=== PATIENT | female | born 1950 | race Caucasian/White ===

== ENCOUNTER → 2017-10-15 | Outpatient (CLI) | payer OTHER ==
[~2017-10-15] MED LIST: ALL60 PO; AZIT250T PO; CALCTAB7 PO; CLOP1TAB54 PO; CMBIN INH; LEVO1TAB33 PO; METO-217 PO; METO25TA3 PO; VERA240T20 PO
[2017-10-15 09:52] LABS: ALT/SGPT 23 U/L (12-78); AST/SGOT 16 U/L (15-37); BLOOD UREA NITROGEN 17 mg/dl (7-18); CALCIUM 9.1 mg/dl (8.5-10.1); CARBON DIOXIDE 29 mmol/L (21-32); CHLORIDE 103 mmol/L (98-107); CREATININE 1.04 mg/dl (0.60-1.20); GLUCOSE 96 mg/dl (70-99); MAGNESIUM 2.6 mg/dl (1.8-2.4); POTASSIUM 4.5 mmol/L (3.5-5.1); SODIUM 139 mmol/L (136-145)
[2017-10-15 09:55] LABS: CHOLESTEROL 154 mg/dl (0-200); CHOLESTEROL/HDL RATIO 2.2; HDL CHOLESTEROL 71 mg/dl; LDL CHOLESTEROL CALCULATED 57 mg/dl; TRIGLYCERIDES 130 mg/dl (0-150); VERY LOW DENSITY LIPOPROT CALC 26 mg/dl
== END | disposition home or self-care (01) ==
LOC: C.LAB 07:29
PROVIDERS: ATTEND Internal Medicine Cardiovascular Disease
DX: I10 Essential (primary) hypertension (principal); E87.6 Hypokalemia; E78.00 Pure hypercholesterolemia, unspecified

== ENCOUNTER 2022-06-01 19:04 | Inpatient (IN) ==
[2022-06-01] MEDS ORDERED: dilTIAZem HCl 5 MG/ML 5 ML VIAL IV STA (19:31)
[2022-06-01] MEDS ORDERED: SODIUM CHLORIDE 0.9% 1000ML 250 ML IV ONE (19:31)
--- NOTE | 2022-06-01 19:40 | Emergency Department Note ---
History of Present Illness General Chief complaint: Leg Weakness, Bilateral Stated complaint: weakness Time Seen by Provider: 06/01/22 19:24 Source: patient History of Present Illness Provider complaint: Leg weakness Onset (ago): week(s) 1 Location: lower extremity, left and right Pain Consistency: + intermittent Maximum Pain Intensity: 0 Quality: + other (Weakness) Relieved By: + rest Exacerbated By: + other (Walking) Associated symptoms: no chest pain, no cough, no fever/chills, no headaches, no nausea/vomiting or no shortness of breath This is a 71-year-old female who presents with bilateral leg weakness over the past week intermittently. She states that when she walks down to her mailbox on the way back when she is walking on the driveway her legs start to feel stiff leg boards and weak. She describes it as weak as if her legs had the flu similar to when she had hypothyroidism. She states that it is not a "draining weakness" like when she had low potassium. It is better with rest. She has no associated pain or swelling to her legs. She denies having any flu symptoms, fever or cough. She denies any chest discomfort or pain or shortness of breath. She does not feel lightheaded or feel any palpitations. She denies abdominal pain, vomiting, diarrhea, black or bloody stools or urinary symptoms. She does state that she has a prior history of atrial fibrillation many years ago. She is not on blood thinners. Home Medications Medication Instructions Recorded Confirmed Type aspirin 81 mg tablet,delayed 81 mg PO DAILY 07/21/19 06/01/22 History release (Adult Low Dose Aspirin) fexofenadine 180 mg tablet 180 mg PO DAILY 07/21/19 06/01/22 History (Ghada Allergy) levothyroxine 75 mcg capsule 75 mcg PO DAILY 07/21/19 06/01/22 History magnesium 250 mg tablet 250 mg PO BID tab 07/21/19 06/01/22 History metoprolol succinate 25 mg 12.5 mg PO DAILY #45 tab 07/21/19 06/01/22 Rx tablet,extended release 24 hr atorvastatin 20 mg tablet 20 mg PO QPM #90 tab 09/02/19 06/01/22 Rx potassium chloride 20 mEq 20 meq PO DAILY #90 tab 10/20/19 06/01/22 Rx tablet,extended release(part/cryst) (Klor-Con M) metoprolol succinate 50 mg 50 mg PO DAILY #90 tab 01/25/20 06/01/22 Rx tablet,extended release 24 hr verapamil 240 mg tablet,extended 120 mg PO QAM #45 tab 01/25/20 06/01/22 Rx release Allergies Allergy/AdvReac Type Severity Reaction Status Date / Time aspirin Allergy Unknown CHEST Verified 06/01/22 20:29 TIGHTNESS, RINGING IN EARS Past Med/Surg History Medical History Atrial fibrillation (03/10/12) Benign essential hypertension (03/10/12) Stas's thyroiditis Hypercholesterolemia Hypertension Social History Smoking Status: Never smoker Preferred Language: Hebrew Feels Safe at Home: Yes Review of Systems See HPI for pertinent positives & negatives. and A total of 10 systems reviewed and were otherwise negative Physical Exam Vital Signs Vital Signs - 24 hr 06/01/22 19:14 06/01/22 20:00 06/01/22 21:00 Temperature 36.8 C Temperature Source Oral Pulse Rate 133 H 86 91 H Pulse Rate from SpO2 Sensor 97 H Respiratory Rate 20 26 H 33 H Respiratory Effort / Characteristics Non-Labored Spontaneous Respiratory Depth Normal Blood Pressure 144/103 H 125/73 126/93 Blood Pressure Mean 116 90 104 Blood Pressure Position Lying Pulse Oximetry 93 93 94 Oxygen Delivery Method Room Air Room Air Room Air Sepsis Recent Fever Within 48 Hours No Sepsis New/Unexplained Change in Mental Status No Sepsis Action Taken by Nursing No Action Required 06/01/22 21:30 Temperature Temperature Source Pulse Rate 134 H Pulse Rate from SpO2 Sensor 146 H Respiratory Rate 34 H Respiratory Effort / Characteristics Respiratory Depth Blood Pressure 149/117 H Blood Pressure Mean 127 Blood Pressure Position Pulse Oximetry 95 Oxygen Delivery Method Sepsis Recent Fever Within 48 Hours Sepsis New/Unexplained Change in Mental Status Sepsis Action Taken by Nursing Constitutional: Vital signs reviewed. Eyes: Pupils are equal round reactive to light. Conjunctiva are noninjected. ENT: Pharynx is clear without erythema or exudate. Mucous membranes are moist. Neck supple without meningeal signs. Respiratory: Clear to auscultation bilaterally. Breath sounds are equal bilaterally. Cardiovascular: Irregularly irregular rhythm. Tachycardic. Heart rate 140. GI: Soft, nondistended and nontender. Bowel sounds are present. Musculoskeletal: No peripheral edema. No lower extremity tenderness. Normal pu lses in the feet. Integumentary: No cyanosis. or jaundice. Neurological: The patient is awake and alert. No focal deficits. Psychiatric: Normal affect. Not anxious appearing. Course Administered Medications Discontinued Medications Diltiazem HCl (Diltiazem Hcl 5 Mg/Ml 5 Ml Vial) 10 mg IV NOW STA Stop: 06/01/22 19:32 Last Admin: 06/01/22 19:55 Dose: 10 mg Documented by: [id number] Cosigned by: [id number] Sodium Chloride (Nss 1000ml) 250 mls @ 999 mls/hr IV .Q16M ONE Stop: 06/01/22 19:46 Last Infusion: 06/01/22 20:13 Dose: 0 mls/hr Documented by: [id number] Admin: 06/01/22 19:57 Dose: 999 mls/hr Documented by: [id number] Medical Decision Making Differential Diagnosis Dysrhythmia, SVT, atrial fibrillation with RVR, metabolic derangement, anemia Medical Records Attestation: I reviewed the patient's medical records. I did perform a limited focused review of portions of the patient's old chart on the electronic medical record. The patient has had no recent pertinent visits to this hospital. Home Medications Current Medication List: was personally reviewed by me Laboratory Data Attestation: I reviewed the patient's lab results. Result diagrams: 06/01/22 19:22 06/01/22 19:22 Lab Results 06/01/22 06/01/22 06/01/22 Range/Units 19:22 19:22 19:22 WBC 11.26 H (4.8-10.8) K/ul RBC 4.63 (3.93-5.22) M/uL Hgb 13.4 (12.0-16.0) g/dl Hct 41.5 (34.1-44.9) % MCV 89.6 (80.0-100.0) fL MCH 28.9 (25.0-34.0) pg MCHC 32.3 (32.0-36.0) g/dL RDW Std Deviation 47.5 H (36.4-46.3) fL RDW Coeff of Елена 14.6 H (11.5-14.5) % Plt Count 275 (130-400) K/uL MPV 10.5 (9.4-12.3) fL Immature Gran % (Auto) 0.5 % Neut % (Auto) 73.9 % Lymph % (Auto) 16.3 % [place] % (Auto) 8.8 % Eos % (Auto) 0.1 % Baso % (Auto) 0.4 % Neut # (Auto) 8.32 H (1.4-6.5) K/uL Lymph # (Auto) 1.83 (1.2-3.4) K/uL [place] # (Auto) 0.99 H (0.24-0.82) K/uL Eos # (Auto) 0.01 (0-0.50) K/uL Baso # (Auto) 0.05 (0-0.2) K/uL Immature Gran # (Auto) 0.06 H (0.00-0.02) K/uL Sodium 141 (136-145) mmol/L Potassium 3.9 (3.5-5.1) mmol/L Chloride 109 H (98-107) mmol/L Carbon Dioxide 20 L (21-32) mmol/L Anion Gap 12 H (3-11) BUN 19 (6-23) mg/dl Creatinine 0.92 (0.6-1.2) mg/dl Est Cr Clr Drug Dosing 57.8 ml/min Est GFR ( Amer) 72.1 ml/min Est GFR (Non-Af Amer) 62.2 ml/min BUN/Creatinine Ratio 20.7 H (10-20) Glucose 138 H (70-99(Fasting)) mg/dl Calcium 8.5 (8.5-10.1) mg/dl Magnesium 2.2 (1.7-2.4) mg/dl Total Bilirubin 1.1 H (0.2-1.0) mg/dl AST 18 (13-39) U/L ALT 25 (7-52) U/L Alkaline Phosphatase 72 (34-104) U/L Troponin I High Sens 88.3 H* (0-14) pg/ml Total Protein 6.6 (6.0-8.3) gm/dl Albumin 4.0 (3.4-5.0) gm/dl Globulin 2.6 (2.5-4.0) gm/dl Albumin/Globulin Ratio 1.5 (0.9-2) TSH 9.749 H (0.300-4.500) uIu/ml Free T4 0.84 (0.61-1.60) ng/dl SARS-CoV-2, RNA, NAAT (NEGATIVE) 06/01/22 Range/Units 20:37 WBC (4.8-10.8) K/ul RBC (3.93-5.22) M/uL Hgb (12.0-16.0) g/dl Hct (34.1-44.9) % MCV (80.0-100.0) fL MCH (25.0-34.0) pg MCHC (32.0-36.0) g/dL RDW Std Deviation (36.4-46.3) fL RDW Coeff of Елена (11.5-14.5) % Plt Count (130-400) K/uL MPV (9.4-12.3) fL Immature Gran % (Auto) % Neut % (Auto) % Lymph % (Auto) % [place] % (Auto) % Eos % (Auto) % Baso % (Auto) % Neut # (Auto) (1.4-6.5) K/uL Lymph # (Auto) (1.2-3.4) K/uL [place] # (Auto) (0.24-0.82) K/uL Eos # (Auto) (0-0.50) K/uL Baso # (Auto) (0-0.2) K/uL Immature Gran # (Auto) (0.00-0.02) K/uL Sodium (136-145) mmol/L Potassium (3.5-5.1) mmol/L Chloride (98-107) mmol/L Carbon Dioxide (21-32) mmol/L Anion Gap (3-11) BUN (6-23) mg/dl Creatinine (0.6-1.2) mg/dl Est Cr Clr Drug Dosing ml/min Est GFR ( Amer) ml/min Est GFR (Non-Af Amer) ml/min BUN/Creatinine Ratio (10-20) Glucose (70-99(Fasting)) mg/dl Calcium (8.5-10.1) mg/dl Magnesium (1.7-2.4) mg/dl Total Bilirubin (0.2-1.0) mg/dl AST (13-39) U/L ALT (7-52) U/L Alkaline Phosphatase (34-104) U/L Troponin I High Sens (0-14) pg/ml Total Protein (6.0-8.3) gm/dl Albumin (3.4-5.0) gm/dl Globulin (2.5-4.0) gm/dl Albumin/Globulin Ratio (0.9-2) TSH (0.300-4.500) uIu/ml Free T4 (0.61-1.60) ng/dl SARS-CoV-2, RNA, NAAT NEGATIVE (NEGATIVE) Imaging Data Radiologist's Impression: Chest X-Ray 06/01/22 19:31 XR chest 1V portable HISTORY: Weakness. Evaluate for pneumonia. COMPARISON: Chest 03/24/2012. FINDINGS: No pneumothorax. Small bilateral pleural effusions, unchanged. The lungs remain hyperexpanded with apical predominant emphysematous changes. The heart is borderline enlarged. This is similar to the prior study. Stable patchy densities within the left lung apex which may represent chronic scarring. There are hazy bibasilar airspace opacities. IMPRESSION: 1. Hazy bibasilar airspace opacities which have progressed. This may represent a pneumonia and could be due to aspiration or a viral process. 2. Small bilateral pleural effusions, unchanged. 3. Patchy density of the left lung apex persists and favors scarring. ACT 112: Negative or not required by law. Electronically signed by: Yadiel Castillo M.D. 06/01/2022 8:01 PM ECG Data Attestation: I personally reviewed and interpreted this ECG as follows: Indication: + tachycardia Rate (beats per minute): 125 Rhythm: + atrial fibrillation ECG ST segments: + T-wave inversions and + Nonspecific ST abnormalities ECG Findings: + PVCs Comparison ECG Date: no prior available Additional Comments: Repeat twelve-lead EKG performed at 2016 per my interpretation shows atrial fibrillation with a heart rate of 100. There are T wave inversions in the anterior lateral leads. No ST elevations. No PVCs. QT is prolonged. MDM Narrative I did evaluate the patient as noted above. She is presenting with a week of weakness in the legs. She has a prior history of A. fib but has not had it for years. She is not anticoagulated. She is tachycardic. IV access was established. I did place an order for continuous cardiac monitoring. The monitor showed atrial fibrillation with a rate of 144 bpm. I did order and personally review the patient's 12-lead EKG as described above. She has A. fib with RVR with nonspecific ST-T wave changes. I did treat her with normal saline IV 250 mL as well as Cardizem 10 mg IV. Her heart rate improved significantly down to the 80s. I did repeat a another twelve-lead EKG which showed T wave inversions anterior laterally. She denies having any chest pain or shortness of breath or lightheadedness. I did order and personally reviewed the images of the patient's chest x-ray as described above. She appears to have bibasilar infiltrates concerning for possible pneumonia versus scarring. She denies having any symptoms consistent with COVID or pneumonia. She was placed in isola tion. I did order a COVID test. I did order and review the patient's blood work as noted in the electronic medical record. CBC shows a white count of 11.26 with a left shift. She is not anemic or thrombocytopenic. CMP is remarkable for chloride of 109 and a CO2 of 20. High-sensitivity troponin is elevated at 88.3. TSH is elevated at 9.75. I did reassess the patient. Her heart rate is about 100. I did recommend hospitalization for further care and evaluation. She likely will require an echocardiogram and anticoagulation as her [id number]- VASc score is 3. I did discuss the case with the hospitalist and mental health case manager. Impression & Plan Atrial fibrillation with rapid ventricular response, Elevated troponin, Abnormality of lung on CXR Discharge Plan Visit Data Chief Complaint: Leg Weakness, Bilateral Stated Complaint: weakness ED Provider: Michael Castro Discharge Problem: Atrial fibrillation with rapid ventricular response, Elevated troponin, Abnormality of lung on CXR Patient Disposition: Being Evaluated by Hospitalist Forms Stand Alone Forms: My [facility] Prescriptions Prescriptions: No Action magnesium 250 mg tablet 250 mg PO BID RF: 0 levothyroxine 75 mcg capsule 75 mcg PO DAILY RF: 0 fexofenadine [Ghada Allergy] 180 mg tablet 180 mg PO DAILY RF: 0 aspirin [Adult Low Dose Aspirin] 81 mg tablet,delayed release (DR/EC) 81 mg PO DAILY RF: 0 metoprolol succinate 25 mg tablet extended release 24 hr 12.5 mg PO DAILY Qty: 45 RF: 3 atorvastatin 20 mg tablet 20 mg PO QPM Qty: 90 RF: 1 potassium chloride [Klor-Con M20] 20 mEq tablet,ER particles/crystals 20 meq PO DAILY Qty: 90 RF: 1 metoprolol succinate 50 mg tablet extended release 24 hr 50 mg PO DAILY Qty: 90 RF: 3 verapamil 240 mg tablet extended release 120 mg PO QAM Qty: 45 RF: 3 Referrals Referrals: Ky Holm MD [Physician] -
[2022-06-01 19:47] LABS: Basophils # (auto) 0.05 K/uL (0-0.2); Basophils % (auto) 0.4 %; Eosinophils # (auto) 0.01 K/uL (0-0.50); Eosinophils % (auto) 0.1 %; Hematocrit (blood only) 41.5 % (34.1-44.9); Hemoglobin 13.4 g/dl (12.0-16.0); Immature Granulocytes # (auto) 0.06 K/uL (0.00-0.02); Immature Granulocytes % (auto) 0.5 %; Lymphocytes # (auto) 1.83 K/uL (1.2-3.4); Lymphocytes % (auto) 16.3 %; Mean Corpuscular Hemoglobin 28.9 pg (25.0-34.0); Mean Corpuscular Hgb Conc 32.3 g/dL (32.0-36.0); Mean Corpuscular Volume 89.6 fL (80.0-100.0); Mean Platelet Volume 10.5 fL (9.4-12.3); Monocytes # (auto) 0.99 K/uL (0.24-0.82); Monocytes % (auto) 8.8 %; Neutrophils # (auto) 8.32 K/uL (1.4-6.5); Neutrophils % (auto) 73.9 %; Platelet Count 275 K/uL (130-400); RDW Coefficient of Variation 14.6 % (11.5-14.5); RDW Standard Deviation 47.5 fL (36.4-46.3); Red Blood Count 4.63 M/uL (3.93-5.22); White Blood Count 11.26 K/ul (4.8-10.8)
--- NOTE | 2022-06-01 20:03 | XRay Report ---
XR chest 1V portable HISTORY: Weakness. Evaluate for pneumonia. COMPARISON: Chest 03/24/2012. FINDINGS: No pneumothorax. Small bilateral pleural effusions, unchanged. The lungs remain hyperexpand ed with apical predominant emphysematous changes. The heart is borderline enlarged. This is similar t o the prior study. Stable patchy densities within the left lung apex which may represent chronic scar ring. There are hazy bibasilar airspace opacities. IMPRESSION: 1. Hazy bibasilar airspace opacities which have progressed. This may represent a pneumonia and could be due to aspiration or a viral process. 2. Small bilateral pleural effusions, unchanged. 3. Patchy density of the left lung apex persists and favors scarring. ACT 112: Negative or not required by law. Electronically signed by: Yadiel Castillo M.D. 06/01/2022 8:01 PM
[2022-06-01 20:10] LABS: Albumin Globulin Ratio 1.5 (0.9-2); BUN Creatinine Ratio 20.7 (10-20); Bilirubin,Total 1.1 mg/dl (0.2-1.0); Calcium 8.5 mg/dl (8.5-10.1); Creatinine Clr Calc Pharmacy 57.8 ml/min; Est GFR (African American) 72.1 ml/min; Est GFR (Non-African American) 62.2 ml/min; Globulin 2.6 gm/dl (2.5-4.0); Magnesium 2.2 mg/dl (1.7-2.4); Potassium 3.9 mmol/L (3.5-5.1); Total Protein 6.6 gm/dl (6.0-8.3)
[2022-06-01 20:19] LABS: Troponin I High Sensitivity 88.3 pg/ml (0-14)
[2022-06-01 20:23] LABS: Thyroid Stimulating Hormone 9.749 uIu/ml (0.300-4.500)
[2022-06-01 20:56] LABS: T4 Free Thyroxine 0.84 ng/dl (0.61-1.60)
[2022-06-01] MEDS ORDERED: METOPROLOL TARTRATE 1 MG/ML VIAL IV STA (22:26)
[2022-06-01] MEDS ORDERED: METOPROLOL SUCC 50MG EXT REL TAB PO STA (22:26)
--- NOTE | 2022-06-01 22:40 | History & Physical Report ---
Date of Service June 01, 2022 Assessment & Plan (1) Atrial fibrillation with rapid ventricular response: Plan: Elevated troponin/atrial fibrillation with RVR/hypertension- The patient will be admitted to telemetry for serial cardiac enzymes, serial EKG's, cardiac rhythm monitoring and a 2-D echocardiogram with Dopplers. Troponin 88.3 on admission EKG with new T wave inversions in leads V3 through V6, along with new A. fib with RVR Received diltiazem 10 mg IV and normal saline 10 to 50 mg IV from the ED Patient has not been taking her metoprolol succinate for a few months Give metoprolol succinate 50 mg p.o. now and Lopressor 5 mg IV now Metoprolol succinate 50 mg p.o. every morning Continue aspirin 81 mg every morning Continue verapamil extended release high 20 mg every morning Lopressor 5 mg IV every 4 hours. Systolic blood pressure greater than 160 Heparin IV low-dose per protocol (2) Elevated troponin: Plan: See above (3) Hypertension: Plan: See above (4) Hypercholesterolemia: Plan: Atorvastatin 20 mg in evening Check a fasting lipid panel (5) Stas's thyroiditis: Plan: Stas's thyroiditis/hypothyroidism- Continue levothyroxine 75 mcg p.o. daily TSH mildly elevated at 9.749, which can be addressed by her PCP after discharge (6) Hypothyroidism (acquired): Plan: See above History of Present Illness Chief Complaint: The patient presents to the emergency department with complaint of intermittent bilateral lower extremity weakness and stiffness while attempting to walk over the past few days. Primary Care Provider: NO PCP The patient is a 71-year-old female with a past medical history including hypertension, hypercholesterolemia, Stas's thyroiditis, hypertension, hypokalemia and allergic rhinitis. She had run out of medications a few months ago, and had not taken any until about 1 week ago, when she checked her blood pressure, vitals elevated, and resumed her verapamil dosing at that time. She reports her blood pressure had improved, and she had not noticed any palpitations or increased heart rate. She was found to be in atrial fibrillation with RVR went arrival to the ED, and reports that she did have atrial fibrillation about 11 years ago. She had previously been on Xarelto as well, which had been discontinued a while ago. Allergies Allergy/AdvReac Type Severity Reaction Status Date / Time aspirin Allergy Unknown CHEST Verified 06/01/22 20:29 TIGHTNESS, RINGING IN EARS Home Medications Medication Instructions Recorded Confirmed Type aspirin 81 mg tablet,delayed 81 mg PO DAILY 07/21/19 06/01/22 History release (Adult Low Dose Aspirin) fexofenadine 180 mg tablet 180 mg PO DAILY 07/21/19 06/01/22 History (Ghada Allergy) levothyroxine 75 mcg capsule 75 mcg PO DAILY 07/21/19 06/01/22 History magnesium 250 mg tablet 250 mg PO BID tab 07/21/19 06/01/22 History metoprolol succinate 25 mg 12.5 mg PO DAILY #45 tab 07/21/19 06/01/22 Rx tablet,extended release 24 hr atorvastatin 20 mg tablet 20 mg PO QPM #90 tab 09/02/19 06/01/22 Rx potassium chloride 20 mEq 20 meq PO DAILY #90 tab 10/20/19 06/01/22 Rx tablet,extended release(part/cryst) (Klor-Con M) metoprolol succinate 50 mg 50 mg PO DAILY #90 tab 01/25/20 06/01/22 Rx tablet,extended release 24 hr verapamil 240 mg tablet,extended 120 mg PO QAM #45 tab 01/25/20 06/01/22 Rx release Past Med/Surg History Medical History (Updated 06/02/22 @ 03:18 by Hugo Nicolas MD) Atrial fibrillation (03/10/12) Benign essential hypertension (03/10/12) Stas's thyroiditis Hypercholesterolemia Hypertension Hypothyroidism (acquired) Social History Smoking Status: Never smoker Hx Alcohol Use: No Hx Substance Use: No Preferred Language: Russian Communication Ability: Effective 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 Beliefs That Will Affect Care: None Current Living Situation: Parent Other Information That Helps Us Care for You: No Feels Safe at Home: Yes Safety Concerns: Feels Safe At This Time Assistive Devices: Glasses Review of Systems Review of Systems: The patient denies chest pain, palpitations, shortness of breath, dyspnea on exertion, cough, sore throat, fevers, chills, sweats, nausea, vomiting, diarrhea , constipation, abdominal pain, pelvic pain, blood in urine or stool, dysuria, urinary frequency or urgency, lightheadedness, dizziness, headache, memory loss, loss of consciousness, rash, abnormal bruising or bleeding, imbalance, focal or generalized weakness, numbness or tingling in arms, generalized arthralgias or myalgias, back or neck pain, or night sweats. The review of systems is otherwise negative other than for that already noted above, and at least 10 systems have been reviewed. Physical Exam Physical Exam: The patient is awake, alert and oriented 3, well developed and well nourished, normocephalic and atraumatic, lying in bed and in no acute distress. HEENT--PERRL, EOMI, mucous membranes and oropharynx normal. Neck--supple. No JVD. No bruits. Thyroid normal, trachea midline, no adenopathy. Heart--irregularly irregular and tachycardic. No murmurs, rubs or gallops. Lungs--clear bilaterally, no respiratory distress, no accessory muscle use. Abdomen--normal bowel sounds and soft. Nontender. Nondistended, no hernias or masses, no organomegaly. Extremities--no cyanosis or clubbing. No edema. Dermatologic--normal skin turgor, normal color, no abnormal lymph nodes, no rash. Neurologic--cranial nerves II through XII grossly intact. Rheumatologic--normal range of motion. Psychiatric--normal affect. Results & Data Results & Data ([facility]) Vital Signs (Past 12 Hours) Vital Signs Temp Pulse Resp BP Pulse Ox 06/01/22 21:30 134 H 34 H 149/117 H 95 06/01/22 21:00 91 H 33 H 126/93 94 06/01/22 20:00 86 26 H 125/73 93 06/01/22 19:14 36.8 C 133 H 20 144/103 H 93 Laboratory Results Laboratory Results WBC 11.26 K/ul (4.8-10.8) H 06/01/22 19: RBC 4.63 M/uL (3.93-5.22) 06/01/22 19: Hgb 13.4 g/dl (12.0-16.0) 06/01/22 19:22 Hct 41.5 % (34.1-44.9) 06/01/22: MCV 89.6 fL (80.0-100.0) 06/01/22 19: MCH 28.9 pg (25.0-34.0) 06/01/22 19: MCHC 32.3 g/dL (32.0-36.0) 06/01/22: RDW Std Deviation 47.5 fL (36.4-46.3) H 06/01/22: RDW Coeff of Елена 14.6 % (11.5-14.5) H 06/01/22: Plt Count 275 K/uL (130-400) 06/01/22 19: MPV 10.5 fL (9.4-12.3) 06/01/22: Immature Gran % (Auto) 0.5 % 06/01/22: Neut % (Auto) 73.9 % 06/01/22: Lymph % (Auto) 16.3 % 06/01/22: [place] % (Auto) 8.8 % 06/01/22: Eos % (Auto) 0.1 % 06/01/22: Baso % (Auto) 0.4 % 06/01/22: Neut # (Auto) 8.32 K/uL (1.4-6.5) H 06/01/22: Lymph # (Auto) 1.83 K/uL (1.2-3.4) 06/01/22: [place] # (Auto) 0.99 K/uL (0.24-0.82) H 06/01/22: Eos # (Auto) 0.01 K/uL (0-0.50) 06/01/22: Baso # (Auto) 0.05 K/uL (0-0.2) 06/01/22: Immature Gran # (Auto) 0.06 K/uL (0.00-0.02) H 06/01/22: APTT 22.9 Seconds (21.0-31.0) 06/01/22 19:48 PTT Ratio 0.8 06/01/22 19:48 Sodium 141 mmol/L (136-145) 06/01/22 19:22 Potassium 3.9 mmol/L (3.5-5.1) 06/01/22 19: Chloride 109 mmol/L (98-107) H 06/01/22 19:22 Carbon Dioxide 20 mmol/L (21-32) L 06/01/22 19:22 Anion Gap 12 (3-11) H 06/01/22 19:22 BUN 19 mg/dl (6-23) 06/01/22 19:22 Creatinine 0.92 mg/dl (0.6-1.2) 06/01/22 19:22 Est Cr Clr Drug Dosing 57.8 ml/min 06/01/22 19:22 Est GFR ( Amer) 72.1 ml/min 06/01/22 19:22 Est GFR (Non-Af Amer) 62.2 ml/min 06/01/22 19:22 BUN/Creatinine Ratio 20.7 (10-20) H 06/01/22 19:22 Glucose 138 mg/dl (70-99(Fasting)) H 06/01/22 19:22 Calcium 8.5 mg/dl (8.5-10.1) 06/01/22 19:22 Magnesium 2.2 mg/dl (1.7-2.4) 06/01/22 19:22 Total Bilirubin 1.1 mg/dl (0.2-1.0) H 06/01/22 19:22 AST 18 U/L (13-39) 06/01/22 19:22 ALT 25 U/L (7-52) 06/01/22 19:22 Alkaline Phosphatase 72 U/L (34-104) 06/01/22 19:22 Troponin I High Sens 82.2 pg/ml (0-14) H* 06/02/22 01:56 Total Protein 6.6 gm/dl (6.0-8.3) 06/01/22 19:22 Albumin 4.0 gm/dl (3.4-5.0) 06/01/22 19: Globulin 2.6 gm/dl (2.5-4.0) 06/01/22 19:22 Albumin/Globulin Ratio 1.5 (0.9-2) 06/01/22 19:22 TSH 9.749 uIu/ml (0.300-4.500) H 06/01/22 19:22 Free T4 0.84 ng/dl (0.61-1.60) 06/01/22 19:22 SARS-CoV-2, RNA, NAAT NEGATIVE (NEGATIVE) 06/01/22 20:37 Impressions Chest X-Ray 06/01/22 19:31 XR chest 1V portable HISTORY: Weakness. Evaluate for pneumonia. COMPARISON: Chest 03/24/2012. FINDINGS: No pneumothorax. Small bilateral pleural effusions, unchanged. The lungs remain hyperexpanded with apical predominant emphysematous changes. The heart is borderline enlarged. This is similar to the prior study. Stable patchy densities within the left lung apex which may represent chronic scarring. There are hazy bibasilar airspace opacities. IMPRESSION: 1. Hazy bibasilar airspace opacities which have progressed. This may represent a pneumonia and could be due to aspiration or a viral process. 2. Small bilateral pleural effusions, unchanged. 3. Patchy density of the left lung apex persists and favors scarring. ACT 112: Negative or not required by law. Electronically signed by: Yadiel Castillo M.D. 06/01/2022 8:01 PM Code Status & VTE Plan Code Status Full code VTE Prophylaxis Plan VTE Prophylaxis will be ordered: Yes PG Care Time/CCT Total # of Minutes Spent Total Time Spent with Patient: Total time spent is greater than 50% in coordination of care (as documented) at patient's floor/unit and/or counseling patient: Coding Level of Care Code 52641 Initial Inpt Care Lvl 3 Diagnoses Atrial fibrillation with rapid ventricular response I48.91 Elevated troponin R77.8 Hypertension I10 Hypercholesterolemia E78.00 Stas's thyroiditis E06.3 Hypothyroidism (acquired) E03.9
[2022-06-02] MEDS ORDERED: ONDANSETRON INJ 2 MG/ML 2 ML VIAL IV PRN (01:15)
[2022-06-02] MEDS ORDERED: Heparin IV Adult Wt-Based Low-Dose *NO* Bolus Protocol IV SCH (02:15)
[2022-06-02] MEDS ORDERED: METOPROLOL TARTRATE 1 MG/ML VIAL IV STA (02:48)
[2022-06-02 03:06] LABS: Partial Thromboplastin Ratio 0.8; Partial Thromboplastin Time 22.9 Seconds (21.0-31.0)
[2022-06-02] MEDS: HEPARIN SODIUM/DEXTROSE 25,000 UNITS/500 ML BAG IV SCH (03:21)
[2022-06-02] MEDS: LEVOTHYROXINE SODIUM 75 MCG TABLET PO SCH (06:17)
[2022-06-02 07:14] LABS: Basophils # (auto) 0.05 K/uL (0-0.2); Basophils % (auto) 0.5 %; Eosinophils # (auto) 0.01 K/uL (0-0.50); Eosinophils % (auto) 0.1 %; Hematocrit (blood only) 42.2 % (34.1-44.9); Hemoglobin 13.6 g/dl (12.0-16.0); Immature Granulocytes # (auto) 0.06 K/uL (0.00-0.02); Immature Granulocytes % (auto) 0.6 %; Lymphocytes # (auto) 1.78 K/uL (1.2-3.4); Mean Corpuscular Hemoglobin 29.1 pg (25.0-34.0); Mean Corpuscular Hgb Conc 32.2 g/dL (32.0-36.0); Mean Corpuscular Volume 90.4 fL (80.0-100.0); Monocytes # (auto) 0.71 K/uL (0.24-0.82); Monocytes % (auto) 6.8 %; Neutrophils # (auto) 7.84 K/uL (1.4-6.5); Platelet Count 270 K/uL (130-400); RDW Coefficient of Variation 14.9 % (11.5-14.5); RDW Standard Deviation 49.1 fL (36.4-46.3); Red Blood Count 4.67 M/uL (3.93-5.22); White Blood Count 10.45 K/ul (4.8-10.8)
[2022-06-02] MEDS: METOPROLOL TARTRATE 1 MG/ML VIAL IV PRN ×2 (07:21→11:40)
[2022-06-02 07:43] LABS: Albumin Level 3.9 gm/dl (3.4-5.0); BUN Creatinine Ratio 25.6 (10-20); Calcium 8.3 mg/dl (8.5-10.1); Creatinine Clr Calc Pharmacy 66.8 ml/min; Est GFR (African American) 78.2 ml/min; Est GFR (Non-African American) 67.5 ml/min; Magnesium 2.4 mg/dl (1.7-2.4); Potassium 4.2 mmol/L (3.5-5.1)
[2022-06-02] MEDS ORDERED: FEXOFENADINE HCL 180 MG TAB PO SCH (09:00)
[2022-06-02] MEDS ORDERED: VERAPAMIL HCL 120 MG TABCR PO SCH (09:00)
[2022-06-02] MEDS ORDERED: METOPROLOL SUCC 50MG EXT REL TAB PO SCH (09:00)
[2022-06-02] MEDS: POTASSIUM CHLORIDE CRTAB 20 MEQ TABCR PO SCH (09:28)
[2022-06-02] MEDS: ASPIRIN 81 MG ECTAB PO SCH (09:29)
[2022-06-02] MEDS: MAGNESIUM OXIDE 400 MG TAB PO SCH ×2 (09:29→21:46)
--- NOTE | 2022-06-02 09:37 | Cardiology Consultation ---
Date of Consultation June 02, 2022 Assessment & Plan (1) Atrial fibrillation with rapid ventricular response: (2) Elevated troponin: (3) Hypertension: (4) Cardiomyopathy: 1. Atrial fibrillation: He has remote history of atrial fibrillation. She presented with rapid ventricular response. Unclear how this relates to her symptoms. I think the duration of her atrial fibrillation is also unclear. She began measuring her heart rate and blood pressure last week. She cannot relate the exact numbers but does suggest that her heart rate was elevated at that time. Based on her degree of LV dysfunction, I think she may have been atrial fibrillation for quite some time with elevated ventricular rates. Unfortunately, she has been without her medications possibly for years. We will continue attempts at rate control. Beta-blockers would be the preferred medication given her cardiomyopathy. Digoxin may be a good adjunct. I would reserve calcium channel blockers for rates that are not well controlled on these 2 medications. She has been started on heparin. At some point we will transition her to an oral agent. Renal function appears preserved and she would be a good candidate for either Xarelto or Eliquis. 2. Cardiomyopathy: Unknown etiology or duration. Very likely related to her high ventricular rates based on the global LV and element of RV dysfunction. Less likely would be a coronary process. At this point we will need better rate control. She is started on beta-helen. We will need to monitor her blood pressure, but starting on low-dose Entresto would also be reasonable. Surprisingly, she seems well compensated. She does not seem to have peripheral edema and not describe significant dyspnea. 3. Elevated troponin: Mild elevation. This is in the setting of a cardiomyopathy and rapid atrial fibrillation. I do not think this is credit resolution representative of an acute coronary syndrome. We will discuss pursuing an ischemic evaluation based on her cardiomyopathy. 4. Valvular heart disease: Mild aortic regurgitation and moderate mitral regurgitation. History of Present Illness Reason for Consultation: Atrial fibrillation Requesting Physician: Maria Isabel Attending Physician: Abhijit Webster MD History of Present Illness The patient is a 71-year-old woman with a history of hypertension and Stas's thyroiditis who presented to the hospital with complaints of lower extremity weakness and some discomfort with ambulation. Patient states that approximately 1 week ago she began to have some difficulty with activity. She states that the main problem was weakness or tiredness in her legs. She did not describe this exclusively as pain. Was not claudication. She would rest and resume her activities. She did not report associated dyspnea. She did check her blood pressure and heart rate around that time and could not give me a reliable answer regarding the readings. She felt like her heart rate may have been slightly higher when she measured at but could not report any specific results. She denied any dizziness or lightheadedness. She did not report exertional chest pain. She recalls 2 episodes of atrial fibrillation in the remote past. These happened several years ago and occurred in the setting of pneumonia and thyroiditis. She does not recall any specific procedures required to return to a sinus rhythm. She was not on systemic anticoagulation but did have some Xarelto at home to use if she had additional episodes. According to the patient she has not been taking medications for possibly 2 years. She reports being out of the area and returning during the pandemic. She did not have her medications at that time. Allergies Allergy/AdvReac Type Severity Reaction Status Date / Time aspirin Allergy Unknown CHEST Verified 06/01/22 20:29 TIGHTNESS, RINGING IN EARS Home Medications Medication Instructions Recorded Confirmed Type aspirin 81 mg tablet,delayed 81 mg PO DAILY 07/21/19 06/01/22 History release (Adult Low Dose Aspirin) fexofenadine 180 mg tablet 180 mg PO DAILY 07/21/19 06/01/22 History (Ghada Allergy) levothyroxine 75 mcg capsule 75 mcg PO DAILY 07/21/19 06/01/22 History magnesium 250 mg tablet 250 mg PO BID tab 07/21/19 06/01/22 History metoprolol succinate 25 mg 12.5 mg PO DAILY #45 tab 07/21/19 06/01/22 Rx tablet,extended release 24 hr atorvastatin 20 mg tablet 20 mg PO QPM #90 tab 09/02/19 06/01/22 Rx potassium chloride 20 mEq 20 meq PO DAILY #90 tab 10/20/19 06/01/22 Rx tablet,extended release(part/cryst) (Klor-Con M) metoprolol succinate 50 mg 50 mg PO DAILY #90 tab 01/25/20 06/01/22 Rx tablet,extended release 24 hr verapamil 240 mg tablet,extended 120 mg PO QAM #45 tab 01/25/20 06/01/22 Rx release Patient History Medical History (Updated 06/02/22 @ 09:44 by Bola Arora MD) Atrial fibrillation (03/10/12) Benign essential hypertension (03/10/12) Stas's thyroiditis Hypercholesterolemia Hypertension Hypothyroidism (acquired) Social History Smoking Status: Never smoker Hx Alcohol Use: No Hx Substance Use: No Preferred Language: Bhutanese Communication Ability: Effective Dramatic Teacher Required: No Beliefs That Will Affect Care: None Current Living Situation: Parent Other Information That Helps Us Care for You: No Feels Safe at Home: Yes Safety Concerns: Feels Safe At This Time Assistive Devices: Glasses Review of Systems Review of Systems: Per HPI. No leg pain at rest. No lower extremity edema. Physical Exam Physical Exam: She is alert and oriented x3. Mood affect appear normal. She answered all questions appropriately. HEENT: Sclerae are anicteric. Pupils are equal and reactive to light and accommodation. Extraocular movements were intact. Neuro: Cranial nerves intact Lungs: A few wet crackles in the left mid lung. Some coarse upper airway sounds but no expiratory wheezing. She has normal respiratory effort without use of accessory muscles. There is normal pulmonary excursion. Cardiac: The rhythm was irregular. S1 and S2 were normal. There are no murmurs on examination. The PMI was not markedly displaced on palpation. Abdomen: The abdomen was soft and nontender. Extremities: Patient has bilateral radial pulses that are equal in intensity. There is no evidence cyanosis or clubbing. There was no evidence of significant peripheral edema bilaterally. Skin: There are no rashes noted on examination today. Results & Data ([facility]) Vital Signs (Past 12 Hours) Vital Signs Temp Pulse Pulse Resp BP BP Pulse Ox 06/02/22 08:15 06/02/22 08:13 128 H 06/02/22 08:10 06/02/22 07:34 36.5 C 133 H 18 115/86 92 06/02/22 07:21 157 H 121/76 06/02/22 03:18 36.4 C L 126 H 18 121/76 91 06/02/22 02:56 135 H 06/02/22 01:58 130 H 06/02/22 01:30 36.5 C 133 H 32 H 133/91 94 06/02/22 00:30 99 H 27 H 100/53 L 91 06/02/22 00:05 152 H 144/101 H 06/01/22 23:00 156 H 31 H 130/104 H 94 06/01/22 22:30 141 H 33 H 133/100 94 06/01/22 21:30 134 H 34 H 149/117 H 95 Pulse Ox 06/02/22 08:15 92 06/02/22 08:13 06/02/22 08:10 92 06/02/22 07:34 06/02/22 07:21 06/02/22 03:18 06/02/22 02:56 06/02/22 01:58 06/02/22 01:30 06/02/22 00:30 06/02/22 00:05 06/01/22 23:00 06/01/22 22:30 06/01/22 21:30 Laboratory Results Abnormal Lab Results 06/01/22 06/01/22 06/01/22 19:22 19:22 19:22 WBC 11.26 H RBC 4.63 Hgb 13.4 Hct 41.5 MCV 89.6 MCH 28.9 MCHC 32.3 RDW Std Deviation 47.5 H RDW Coeff of Елена 14.6 H Plt Count 275 MPV 10.5 Immature Gran % (Auto) 0.5 Neut % (Auto) 73.9 Lymph % (Auto) 16.3 Ray % (Auto) 8.8 Eos % (Auto) 0.1 Baso % (Auto) 0.4 Neut # (Auto) 8.32 H Lymph # (Auto) 1.83 Ray # (Auto) 0.99 H Eos # (Auto) 0.01 Baso # (Auto) 0.05 Immature Gran # (Auto) 0.06 H APTT PTT Ratio Sodium 141 Potassium 3.9 Chloride 109 H Carbon Dioxide 20 L Anion Gap 12 H BUN 19 Creatinine 0.92 Est Cr Clr Drug Dosing 57.8 Est GFR ( Amer) 72.1 Est GFR (Non-Af Amer) 62.2 BUN/Creatinine Ratio 20.7 H Glucose 138 H Calcium 8.5 Phosphorus Magnesium 2.2 Total Bilirubin 1.1 H AST 18 ALT 25 Alkaline Phosphatase 72 Troponin I High Sens 88.3 H* Total Protein 6.6 Albumin 4.0 Globulin 2.6 Albumin/Globulin Ratio 1.5 TSH 9.749 H Free T4 0.84 SARS-CoV-2, RNA, NAAT 06/01/22 06/01/22 06/02/22 19:48 20:37 01:56 WBC RBC Hgb Hct MCV MCH MCHC RDW Std Deviation RDW Coeff of Елена Plt Count MPV Immature Gran % (Auto) Neut % (Auto) Lymph % (Auto) Ray % (Auto) Eos % (Auto) Baso % (Auto) Neut # (Auto) Lymph # (Auto) Ray # (Auto) Eos # (Auto) Baso # (Auto) Immature Gran # (Auto) APTT 22.9 PTT Ratio 0.8 Sodium Potassium Chloride Carbon Dioxide Anion Gap BUN Creatinine Est Cr Clr Drug Dosing Est GFR ( Amer) Est GFR (Non-Af Amer) BUN/Creatinine Ratio Glucose Calcium Phosphorus Magnesium Total Bilirubin AST ALT Alkaline Phosphatase Troponin I High Sens 82.2 H* Total Protein Albumin Globulin Albumin/Globulin Ratio TSH Free T4 SARS-CoV-2, RNA, NAAT NEGATIVE 06/02/22 06/02/22 06/02/22 06:35 06:35 06:35 WBC 10.45 RBC 4.67 Hgb 13.6 Hct 42.2 MCV 90.4 MCH 29.1 MCHC 32.2 RDW Std Deviation 49.1 H RDW Coeff of Елена 14.9 H Plt Count 270 MPV 11.0 Immature Gran % (Auto) 0.6 Neut % (Auto) 75.0 Lymph % (Auto) 17.0 Ray % (Auto) 6.8 Eos % (Auto) 0.1 Baso % (Auto) 0.5 Neut # (Auto) 7.84 H Lymph # (Auto) 1.78 Ray # (Auto) 0.71 Eos # (Auto) 0.01 Baso # (Auto) 0.05 Immature Gran # (Auto) 0.06 H APTT PTT Ratio Sodium 141 Potassium 4.2 Chloride 108 H Carbon Dioxide 23 Anion Gap 10 BUN 22 Creatinine 0.86 Est Cr Clr Drug Dosing 66.8 Est GFR ( Amer) 78.2 Est GFR (Non-Af Amer) 67.5 BUN/Creatinine Ratio 25.6 H Glucose 136 H Calcium 8.3 L Phosphorus 4.0 Magnesium 2.4 Total Bilirubin AST ALT Alkaline Phosphatase Troponin I High Sens 79.0 H* Total Protein Albumin 3.9 Globulin Albumin/Globulin Ratio TSH Free T4 SARS-CoV-2, RNA, NAAT Diagnostic Findings Chest x-ray obtained the time admission revealed hazy bibasilar opacities possible pneumonia, aspiration or viral process. Patchy density of the left lung apex. Echocardiogram was obtained today which revealed severely reduced LV systolic function and RV function. Moderate mitral regurgitation. Mild aortic regurgitation. Mild left atrial enlargement. ECG Additional Comments: EKG was obtained the time of admission which revealed atrial fibrillation, rapid ventricular response, some aberrant conduction, nonspecific ST and T-wave changes PG Care Time/CCT Total # of Minutes Spent Total Time Spent with Patient: Total time spent is greater than 50% in coordination of care (as documented) at patient's floor/unit and/or counseling patient: Coding Level of Care Code 02332 Initial Inpt Care Lvl 3 Diagnoses Atrial fibrillation with rapid ventricular response I48.91 Elevated troponin R77.8 Hypertension I10 Cardiomyopathy I42.9
--- NOTE | 2022-06-02 09:45 | XCELERA ---
[id number]}___[id number]
[2022-06-02 09:56] LABS: Partial Thromboplastin Ratio 1.2; Partial Thromboplastin Time 32.8 Seconds (21.0-31.0)
[2022-06-02] MEDS ORDERED: HEPARIN SOD (PORCINE) 1000 UNIT/ML IV ONE (10:09)
--- NOTE | 2022-06-02 10:35 | Hospitalist Progress Note ---
Date of Service June 02, 2022 Assessment & Plan (1) Atrial fibrillation with rapid ventricular response: Plan: Elevated troponin/atrial fibrillation with RVR/hypertension- Patient has not been taking her metoprolol succinate for up to a year possibly Cardiology consulted. Continue metoprolol at this time. We will hold verapamil. It should be noted the patient did receive a.m. dose today in addition to her metoprolol for rate control Patient continues in atrial fibrillation with rapid ventricular rate into the 120s and 130s No chest pain or tightness Echocardiogram completed and shows significant reduction in left ventricular ejection fraction of 15 to 20% with moderate hypokinesis involving the basal inferior and posterior segments with near akinesis of the remaining left ventricle Reduced ejection fraction could be secondary to chronic tachycardia from atrial fibrillation Continue to focus on rate control. Patient will need LifeVest on discharge and follow-up in 4 to 6 weeks with cardiology No plans for cardiac catheterization at this time Heparin IV low-dose per protocol (2) Elevated troponin: Plan: This is currently trending down at this time. No chest pain or tightness Cardiology on board and doubts that this is an acute NH (3) Hypertension: Plan: Patient received verapamil this morning. She also received metoprolol for rate control for her atrial fibrillation Will discontinue the verapamil and just continue with beta-blockade Continue to monitor on telemetry and follow vital signs per protocol (4) Hypercholesterolemia: Plan: Continue atorvastatin 20 mg (5) Stas's thyroiditis: Plan: Stas's thyroiditis/hypothyroidism- Continue levothyroxine 75 mcg p.o. daily TSH mildly elevated at 9.749, which can be addressed by her PCP after discharge (6) Hypothyroidism (acquired): Plan: Follow-up in 4 to 6 weeks with PCP for adjustment of levothyroxine as needed DVT prophylaxis: Continue with heparin drip Exertional intolerance: May be age-appropriate. Will request PT OT consults Disposition: Anticipate discharge home when stable Admission and Anticipated Discharge Date Admission Date: June 01, 2022 Supervising Physician Co-Signing Physician Notes I personally saw and examined the patient. I verified all peck points and agree with Kelvin Maldonado PA-C with the following exceptions and/or additions: Patient became hypotensive/bradycardic progressively worsening throughout the day with associated confusion. Informed patient BP 78/59. Patient transferred to ICU by Kelvin Maldonado and I reviewed her in 108. Suspect some of her rate was appropriate tachycardia with dry mucus membranes on exam. High risk of worsening HF with IV fluids given poor EF however. 250ml NSS bolus given without significant increase in BP. Additional 250ml bolus running. Started on Levophed. Discussed with Dr Garcia (wood floor layer) on multiple occasions. Calcium chloride 1g given from crash cart and then calcium gluconate 1g IV to reverse CCB - this appeared to improve her rate and hypotension and she appeared less pale and less confused although was talking to me throughout critical management. Glucagon ordered but not given as improvement in HR and BP. Subjective Attending: Dr. Abhijit Webster Is a 71-year-old female that was admitted yesterday for atrial fibrillation with rapid ventricular response. She was found to have an elevated troponin as well as T wave inversions in leads V3 through V6. She received diltiazem for atrial fibrillation. Cardiology was consulted and recommend beta-blockers and possibly digoxin. Based on LV dysfunction is suspected that she has been in atrial fibrillation for quite some time. Patient was previously on beta-blockers but suspect the patient has been noncompliant for years. Echocardiogram was completed and reveals a left ventricular ejection fraction of 15 to 20% with moderate hypokinesis involving the basal inferior and posterior segments with near akinesis of the remaining left ventricle. No significant aortic stenosis noted. Right ventricular systolic function is also moderately to severely reduced. Patient is currently on a heparin drip. Also continues on metoprolol succinate. TSH is elevated 9.749. She is currently receiving 75 mcg of levothyroxine daily. Patient states that she is feeling better today. No lightheadedness or dizziness. No chest pain or tightness. She currently has no palpitations. Patient states that she moved to the [facility] [place] for about a year and that she was not able to take medicines at that time. She recently moved back to be with her mother. Patient denies fever, chills, sweats, rigors. No other acute complaints at this time. Review of Systems Review of Systems: A total of 10 systems was reviewed and is negative other than as listed in the HPI Physical Exam Physical Exam: GENERAL : No acute distress EYES: No icterus, gaze conjugate NOSE: No evidence of epistaxis MOUTH: No lesions or candidiasis NECK: Supple LUNGS: CTA B/L, no wheezes, rales or rhonchi HEART: Irregular, irregular. Rate in the 120s. ABDOMEN: Soft, NT, ND, BS Present EXTREMITIES: No LE edema, pedal pulses intact NEURO: A&OX3. Pupils equal round and reactive to light. Tongue is midline. No facial droop. No focal deficits. Results & Data Results & Data ([facility]) Vital Signs (Past 12 Hours) Vital Signs Temp Pulse Pulse Resp BP BP Pulse Ox 06/02/22 08:15 06/02/22 08:13 128 H 06/02/22 08:10 06/02/22 07:34 36.5 C 133 H 18 115/86 92 06/02/22 07:21 157 H 121/76 06/02/22 03:18 36.4 C L 126 H 18 121/76 91 06/02/22 02:56 135 H 06/02/22 01:58 130 H 06/02/22 01:30 36.5 C 133 H 32 H 133/91 94 06/02/22 00:30 99 H 27 H 100/53 L 91 06/02/22 00:05 152 H 144/101 H 06/01/22 23:00 156 H 31 H 130/104 H 94 06/01/22 22:30 141 H 33 H 133/100 94 Pulse Ox 06/02/22 08:15 92 06/02/22 08:13 06/02/22 08:10 92 06/02/22 07:34 06/02/22 07:21 06/02/22 03:18 06/02/22 02:56 06/02/22 01:58 06/02/22 01:30 06/02/22 00:30 06/02/22 00:05 06/01/22 23:00 06/01/22 22:30 Critical Care Results & Data Vital Signs (Past 12 Hours) Vital Signs Temp Pulse Pulse Resp BP BP Pulse Ox 06/02/22 11:40 120 H 107/72 06/02/22 11:10 36.3 C L 129 H 18 107/72 93 06/02/22 08:15 06/02/22 08:13 128 H 06/02/22 08:10 06/02/22 07:34 36.5 C 133 H 18 115/86 92 06/02/22 07:21 157 H 121/76 06/02/22 03:18 36.4 C L 126 H 18 121/76 91 06/02/22 02:56 135 H 06/02/22 01:58 130 H 06/02/22 01:30 36.5 C 133 H 32 H 133/91 94 Pulse Ox 06/02/22 11:40 06/02/22 11:10 06/02/22 08:15 92 06/02/22 08:13 06/02/22 08:10 92 06/02/22 07:34 06/02/22 07:21 06/02/22 03:18 06/02/22 02:56 06/02/22 01:58 06/02/22 01:30 Lab & Micro Results (Past 24 Hours) RBC 4.36 M/uL (3.93-5.22) 06/03/22 WBC 13.82 K/ul (4.8-10.8) H 06/03/22 Hgb 12.9 g/dl (12.0-16.0) 06/03/22 Hct 40.4 % (34.1-44.9) 06/03/22 MCV 92.7 fL (80.0-100.0) 06/03/22 MCH 29.6 pg (25.0-34.0) 06/03/22 MCHC 31.9 g/dL (32.0-36.0) L 06/03/22 RDW Standard Deviation 50.7 fL (36.4-46.3) H 06/03/22 RDW Coefficient of Variation 14.9 % (11.5-14.5) H 06/03/22 Plt Count 201 K/uL (130-400) 06/03/22 MPV 10.9 fL (9.4-12.3) 06/03/22 Nucleated Red Blood Cells % (auto) 0.1 % 06/03/22 Nucleated RBC Absolute Count (auto) 0.02 K/uL (0-0) H 06/03/22 Neutrophils (%) (Auto) 77.1 % 06/03/22 Lymphocytes (%) (Auto) 13.6 % 06/03/22 Monocytes # (Auto) 1.12 K/uL (0.24-0.82) H 06/03/22 Eosinophils # (Auto) 0.00 K/uL (0-0.50) 06/03/22 Immature Granulocyte % (Auto) 1.0 % 06/03/22 Neutrophils # (Auto) 10.65 K/uL (1.4-6.5) H 06/03/22 Lymphocytes # (Auto) 1.88 K/uL (1.2-3.4) 06/03/22 Monocytes # (Auto) 1.12 K/uL (0.24-0.82) H 06/03/22 Eosinophils # (Auto) 0.00 K/uL (0-0.50) 06/03/22 Basophils # (Auto) 0.03 K/uL (0-0.2) 06/03/22 Immature Granulocyte # (Auto) 0.14 K/uL (0.00-0.02) H 06/03/22 Na 137 mmol/L (136-145) 06/03/22 K 4.5 mmol/L (3.5-5.1) 06/03/22 Cl 108 mmol/L (98-107) H 06/03/22 CO2 20 mmol/L (21-32) L 06/03/22 Anion Gap 9 (3-11) 06/03/22 BUN 34 mg/dl (6-23) H 06/03/22 Creatinine 1.09 mg/dl (0.6-1.2) 06/03/22 Estimated GFR ( Amer) 58.7 ml/min 06/03/22 Estimated GFR (Non-Af Amer) 50.7 ml/min 06/03/22 BUN/Creatinine Ratio 31.2 (10-20) H 06/03/22 Glu 128 mg/dl (70-99(Fasting)) H 06/03/22 Ca 8.5 mg/dl (8.5-10.1) 06/03/22 Phosphorus Level 4.2 mg/dl (2.5-4.9) 06/03/22 Albumin 3.3 gm/dl (3.4-5.0) L 06/03/22 Mg 2.4 mg/dl (1.7-2.4) 06/03/22 03:21 06/03/22 Calcium Level 8.5 mg/dl (8.5-10.1) 06/03/22 03:21 06/03/22 Venous Blood pH 7.29 (7.36-7.41) L 06/03/22 00:19 06/03/22 Diagnostic Findings (Past 24 Hours) Chest X-Ray 06/01/22 19:31 XR chest 1V portable HISTORY: Weakness. Evaluate for pneumonia. COMPARISON: Chest 03/24/2012. FINDINGS: No pneumothorax. Small bilateral pleural effusions, unchanged. The lungs remain hyperexpanded with apical predominant emphysematous changes. The heart is borderline enlarged. This is similar to the prior study. Stable patchy densities within the left lung apex which may represent chronic scarring. There are hazy bibasilar airspace opacities. IMPRESSION: 1. Hazy bibasilar airspace opacities which have progressed. This may represent a pneumonia and could be due to aspiration or a viral process. 2. Small bilateral pleural effusions, unchanged. 3. Patchy density of the left lung apex persists and favors scarring. ACT 112: Negative or not required by law. Electronically signed by: Yadiel Castillo M.D. 06/01/2022 8:01 PM I & O Totals 24 Hours 06/01/22 06/02/22 06/03/22 06:59 06:59 06:59 Intake Total 750 / 750 563.050 / 563.050 Output Total 350 / 350 Balance 750 / 750 213.050 / 213.050 Cumulative 06/01/22 18:43 thru 06/02/22 11:23 Intake Total 1313.050 Output Total 350 Balance 963.050 RT Ventilator Mngmt (Last Documented) Ventilator Ordered Settings Respiratory Rate 18 06/02/22 11:10 Ventilator - PT Measurements Respiratory Rate 18 PG Care Time/CCT Total # of Minutes Spent Total Time Spent with Patient: Total time spent is greater than 50% in coordination of care (as documented) at patient's floor/unit and/or counseling patient: Critical Care Time: Yes Total Critical Care Time: 40 Coding Level of Care Code 79858 Subseq Hosp Care Lvl 3 Diagnoses Atrial fibrillation with rapid ventricular response I48.91 Elevated troponin R77.8 Hypertension I10 Hypercholesterolemia E78.00 Stas's thyroiditis E06.3 Hypothyroidism (acquired) E03.9 Additional Codes Critical Care Time - Critical Care Time: Yes ([id number])
[2022-06-02] MEDS ORDERED: HEPARIN IV BOLUS 3,000 UNITS in SYRINGE 0 ML IV ONE (10:45)
--- NOTE | 2022-06-02 12:18 | Electrocardiogram Report ---
Test Reason : Blood Pressure : / mmHG Vent. Rate : 125 BPM Atrial Rate : 131 BPM P-R Int : 000 ms QRS Dur : 082 ms QT Int : 350 ms P-R-T Axes : 000 063 235 degrees QTc Int : 505 ms Atrial fibrillation with rapid ventricular response with premature ventricular or aberrantly conducte d complexes T wave abnormality, consider inferior ischemia T wave abnormality, consider anterolateral ischemia Abnormal ECG When compared with ECG of 21-MAR-2012 06:30, Atrial fibrillation has replaced Sinus rhythm T wave inversion more evident in Lateral leads Confirmed by Bola Arora ([id number]) on 06/02/2022 12:18:32 PM Referred By: REFERRED SELF Confirmed By:Flex Arora
--- NOTE | 2022-06-02 12:21 | Electrocardiogram Report ---
Test Reason : Blood Pressure : / mmHG Vent. Rate : 100 BPM Atrial Rate : 090 BPM P-R Int : 000 ms QRS Dur : 084 ms QT Int : 378 ms P-R-T Axes : 000 049 210 degrees QTc Int : 487 ms Atrial fibrillation with premature ventricular or aberrantly conducted complexes Prolonged QT Abnormal ECG When compared with ECG of 01-JUN-2022 19:14, (unconfirmed) No significant change was found Confirmed by Bola Arora ([id number]) on 06/02/2022 12:20:58 PM Referred By: REFERRED SELF Confirmed By:Flex Arora
--- NOTE | 2022-06-02 12:28 | Electrocardiogram Report ---
Test Reason : Blood Pressure : / mmHG Vent. Rate : 140 BPM Atrial Rate : 159 BPM P-R Int : 000 ms QRS Dur : 082 ms QT Int : 322 ms P-R-T Axes : 000 045 234 degrees QTc Int : 491 ms Atrial fibrillation with rapid ventricular response with premature ventricular or aberrantly conducte d complexes Low voltage QRS Abnormal ECG When compared with ECG of 01-JUN-2022 20:17, (unconfirmed) No significant change was found Confirmed by Bola Arora ([id number]) on 06/02/2022 12:27:43 PM Referred By: REFERRED SELF Confirmed By:Flex Arora
[2022-06-02] MEDS: ACETAMINOPHEN 325 MG TAB PO PRN (14:40)
[2022-06-02] MEDS ORDERED: PROMETHAZINE HCL 25 MG TAB PO PRN (16:44)
[2022-06-02] MEDS ORDERED: SODIUM CHLORIDE 0.9% 1000ML 500 ML IV ONE (17:06)
[2022-06-02 17:16] LABS: Partial Thromboplastin Ratio 2.1
[2022-06-02 17:21] LABS: Partial Thromboplastin Time 57.2 Seconds (21.0-31.0)
--- NOTE | 2022-06-02 17:36 | XRay Report ---
XR chest 1V portable CLINICAL HISTORY: F/U CXR from admission re opacities. COMPARISON STUDY: 06/01/2022 TECHNIQUE: 1 view of the chest FINDINGS: Single frontal view of the chest demonstrates the heart to again be enlarged. There is interval worse munir of right lower lobe alveolar opacity and evidence for increased right pleural effusion. There is also small left pleural effusion and left basilar atelectasis. The remainder the lungs are clear. Th ere is no evidence for vascular congestion. There is no acute osseous pathology. IMPRESSION: 1. Worsening right lower lobe alveolar opacity in right pleural effusion. ACT 112: Negative or not required by law. Electronically signed by: Mikel Travis M.D. 06/02/2022 5:34 PM
[2022-06-02] MEDS ORDERED: STAT IV Infusion **Titration per Protocol STA ×2 (18:01→18:26)
[2022-06-02] MEDS: NOREPINEPHRINE/D5W 4 MG/250 ML IV ONE ×2 (18:04→18:05)
[2022-06-02] MEDS ORDERED: NOREPINEPHRINE/D5W 4 MG/250 ML PLCT IV SCH (18:15)
[2022-06-02] MEDS ORDERED: STAT IV STA (18:16)
[2022-06-02] MEDS ORDERED: ICU PROTOCOL FOR HYPERGLYCEMIA PRN (18:16)
[2022-06-02] MEDS ORDERED: CALCIUM GLUCONATE 10% 2,000 MG in DEXTROSE 5% 50 ML IV ONE ×2 (18:16→18:25)
[2022-06-02 18:17] LABS: Troponin I High Sensitivity 60.1 pg/ml (0-14)
[2022-06-02 18:18] LABS: Calcium 8.1 mg/dl (8.5-10.1); Creatinine Clr Calc Pharmacy 41.3 ml/min; Est GFR (African American) 43.8 ml/min; Est GFR (Non-African American) 37.8 ml/min; Magnesium 2.5 mg/dl (1.7-2.4); Potassium 4.6 mmol/L (3.5-5.1)
[2022-06-02] MEDS ORDERED: GLUCAGON 10 MG in SYRINGE 0 ML IV STA (18:25)
[2022-06-02] MEDS ORDERED: EPINEPHrine/NSS 4 MG/254 ML BAG IV SCH (18:30)
[2022-06-02] MEDS ORDERED: CALCIUM GLUCONATE 10% 1,000 MG in DEXTROSE 5% 50 ML IV ONE (18:33)
[2022-06-02 18:34] LABS: Base Excess VBG -17.1 mEq/L; HCO3 VBG 12 mmol/L; Oxygen Saturation VBG < 60.0 %; PCO2 VBG 40 mmHg (38-50); PO2 VBG 17 mmHg; pH VBG 7.09 (7.36-7.41)
[2022-06-02 19:28] LABS: Hematocrit (blood only) 41.7 % (34.1-44.9); Hemoglobin 12.9 g/dl (12.0-16.0); Mean Corpuscular Hemoglobin 29.8 pg (25.0-34.0); Mean Corpuscular Hgb Conc 30.9 g/dL (32.0-36.0); Mean Corpuscular Volume 96.3 fL (80.0-100.0); Nucleated RBC # (auto) 0.02 K/uL (0-0); Nucleated RBC % (auto) 0.1 %; Platelet Count 281 K/uL (130-400); RDW Standard Deviation 53.8 fL (36.4-46.3); Red Blood Count 4.33 M/uL (3.93-5.22); White Blood Count 13.88 K/ul (4.8-10.8)
[2022-06-02 20:04] LABS: Acanthocytes 2+; Basophils # (auto) 0.05 K/uL (0-0.2); Basophils % (auto) 0.4 %; Echinocytes 1+; Eosinophils # (auto) 0.02 K/uL (0-0.50); Eosinophils % (auto) 0.1 %; Immature Granulocytes # (auto) 0.18 K/uL (0.00-0.02); Immature Granulocytes % (auto) 1.3 %; Lymphocytes # (auto) 2.63 K/uL (1.2-3.4); Lymphocytes % (auto) 18.9 %; Monocytes # (auto) 0.96 K/uL (0.24-0.82); Monocytes % (auto) 6.9 %; Neutrophils # (auto) 10.04 K/uL (1.4-6.5); Neutrophils % (auto) 72.4 %; Poikilocytosis Present; Polychromasia 1+
--- NOTE | 2022-06-02 20:34 | Critical Care Consultation ---
Date of Consultation June 02, 2022 Assessment & Plan (1) Admitted to intensive care unit: Reason Critically Ill: 71-year-old female who was profoundly hypotensive requiring vasopressor support in the setting of A. fib with RVR requiring ongoing close hemodynamic monitoring and medication adjustments. NEURO - * CAM ICU: NEGATIVE CARDIAC/VASCULAR - * A. fib with RVR: * Patient had apparently not been taking her metoprolol at home for some time. She has an associated cardiomyopathy which is presumed to be related to her dysrhythmia. * Continue with metoprolol as blood pressure tolerates. * Unfortunately, the patient had an episode of profound hypotension with bradycardia. Concerns for beta-helen and CCB dosing. * Continue judicious use of beta-helen for rate control. * She remains on heparin drip at this time. Will eventually need transition to oral agent. * Wean down Levophed as able. * Patient with elevated BNP and troponin is trending down. Question if this is all related to elevated heart rate as the patient clinically appears dry on exam. * Continue with ongoing cardiology recommendations. * Monitor on telemetry. RESPIRATORY - * Hypoxia: * Patient was noted to be hypoxic during the episode of hypotension. This has seemed to improve greatly. Supplemental oxygen as needed. Titrate down as tolerated. GI/NUTRITION - * Sips and chips for now overnight. RENAL/LYTES - * GUANAKO: * Likely secondary to transient hypotension. * Again, patient does appear clinically dry. I am concerned that her other findings of degree of failure, pleural effusion, and elevated BNP are likely more related to poor forward flow state in the setting of rapid A. fib. As her heart rate is better controlled at this time and blood pressures improved as well, will provide gentle IV fluids as tolerated. * IVF: Normosol at 100 mL/h. - * Muse in place - Strict I&Os. ENDO - * No h/o DM * BSGs per unit protocol. ISS --> gtt per unit policy. * Hypothyroidism: * Continue home levothyroxine dosing. HEME - * Stable H&H * Trend H&H, coagulation studies while on Heparin gtt. ID - * No clinical findings consistent with infectious causes. * PCT negative. * Will hold off on antibiotics for now. LINES/IV ACCESS - * PIVs x2 * Muse DVT PROPHYLAXIS - * Heparin gtt * SCDs I have personally spent 45 minutes of critical care time in the direct management of this patient. This is a life/limb threatening event. This includes time spent evaluating patient, direct bedside care, chart review, placing orders, interpretation of diagnostic studies, discussion with consultants, patient, and family members, as well as other required patient management activities. This time is exclusive of all separately billable procedures, and teaching time and separate from and in addition to any other critical care service time. Thank you for allowing us to participate in the care of this patient. Please refer to my attending physician's documentation for any further recommendations. (2) Atrial fibrillation with rapid ventricular response: (3) Hypotension: (4) Cardiomyopathy: (5) Hypertension: (6) Hypercholesterolemia: (7) Abnormality of lung on CXR: (8) Elevated troponin: (9) Hypothyroidism (acquired): History of Present Illness Attending Physician: Abhijit Webster MD History of Present Illness Patient is a 71-year-old female with a significant past medical history of A. fib, Stas's thyroiditis, hypercholesterolemia, and hypertension. Patient initially admitted to this institution on 06/01 for A. fib with RVR. Patient had been placed on heparin and had been receiving metoprolol as well as her home doses of verapamil. She had been receiving IV doses of metoprolol throughout the day. Unfortunately, at some point, the patient became profoundly hy potensive with associated nausea and vomiting. She was subsequently moved to the ICU where she was resuscitated as she was developing bradycardia in addition to her hypotension. She had been placed on epinephrine which was changed to Levophed. Her electrolytes were resuscitated as well. Thankfully, her blood pressures did normalize and her norepinephrine had started to be weaned down prior to my evaluation. Upon my evaluation in the ICU, the patient is drowsy, but denies complaints of pain. She initially thinks that she is in [place], however when she opens her eyes, she knows that she is in the hospital and that her mother is here as well. She knows the year and month. She answers questions slowly, but otherwise appropriately. She reports that she is feeling better at this time, and specifically offers no complaints of headaches, dizziness, lightheadedness, vision changes, numbness/weakness to the extremities, chest pain, palpitations, shortness of breath, pleuritic pain, or abdominal discomfort. Allergies Allergy/AdvReac Type Severity Reaction Status Date / Time aspirin Allergy Unknown CHEST Verified 06/01/22 20:29 TIGHTNESS, RINGING IN EARS Home Medications Medication Instructions Recorded Confirmed Type aspirin 81 mg tablet,delayed 81 mg PO DAILY 07/21/19 06/01/22 History release (Adult Low Dose Aspirin) fexofenadine 180 mg tablet 180 mg PO DAILY 07/21/19 06/01/22 History (Ghada Allergy) levothyroxine 75 mcg capsule 75 mcg PO DAILY 07/21/19 06/01/22 History magnesium 250 mg tablet 250 mg PO BID tab 07/21/19 06/01/22 History metoprolol succinate 25 mg 12.5 mg PO DAILY #45 tab 07/21/19 06/01/22 Rx tablet,extended release 24 hr atorvastatin 20 mg tablet 20 mg PO QPM #90 tab 09/02/19 06/01/22 Rx potassium chloride 20 mEq 20 meq PO DAILY #90 tab 10/20/19 06/01/22 Rx tablet,extended release(part/cryst) (Klor-Con M) metoprolol succinate 50 mg 50 mg PO DAILY #90 tab 01/25/20 06/01/22 Rx tablet,extended release 24 hr verapamil 240 mg tablet,extended 120 mg PO QAM #45 tab 01/25/20 06/01/22 Rx release Patient History Medical History Atrial fibrillation (03/10/12) Benign essential hypertension (03/10/12) Stas's thyroiditis Hypercholesterolemia Hypertension Hypothyroidism (acquired) Social History Smoking Status: Never smoker Hx Alcohol Use: No Hx Substance Use: No Preferred Language: [place] Communication Ability: Effective Health Promotion Manager Required: No Beliefs That Will Affect Care: None Current Living Situation: Parent Feels Safe at Home: Yes Assistive Devices: Glasses Review of Systems Review of Systems: A complete 10 point review of systems was reviewed with the patient with pertinent positives and negatives as per history of present illness. All else were negative. Physical Exam Physical Exam: VITAL SIGNS - Vital signs and nursing notes were reviewed. GENERAL - 71-year-old female appearing her stated age who is in no acute distress. Drowsy but answers questions. Seems a bit confused at times. SKIN - Without rashes. HEAD - NC/AT. EYES - PERRL with EOMI bilaterally. Sclera anicteric. EARS - No deformities of external structures noted on gross examination bilaterally. NOSE - Midline and without cyanosis. No epistaxis or purulent drainage noted. MOUTH/OROPHARYNX - Without perioral cyanosis. Buccal mucosa pink and moist. NECK - Neck with FROM. Supple to palpation. No lymphadenopathy noted. No nuchal rigidity. LUNGS - Chest wall symmetric without accessory muscle use, intercostals retr actions, or central cyanosis. Normal vesicular breath sounds CTA B/L. No wheezes, rales, or rhonchi appreciated. CARDIAC - RRR with S1/S2. No murmur, rubs, or gallops appreciated. ABDOMEN - Abdominal contour flat without pulsations or visible masses. BS normoactive all four quadrants. No tenderness, palpable masses, hepatosplenomegaly, or ascites noted. EXTREMITIES - No clubbing or peripheral cyanosis. No pretibial edema present. +3/5 radial and dorsalis pedis pulses palpated throughout. +5/5 strength noted in UE/LE bilaterally. NEUROLOGIC - Cranial nerves II through XII grossly intact. Sensory intact to light touch throughout. PSYCH -patient drowsy and initially reports that she is" [place]", however she corrected this quickly and knows that she is in [place] into the hospital. She also knows that her mother is admitted here as well. She knows the year, date, date of . She is slow to answer questions and generally does appear a bit confused. Results & Data Results & Data ([facility]) Vital Signs (Past 12 Hours) Vital Signs Temp Pulse Pulse Resp BP BP Pulse Ox 06/02/22 18:46 81 26 H 146/104 H 96 06/02/22 18:44 75 24 95 06/02/22 18:43 70 22 147/104 H 97 06/02/22 18:42 77 25 H 94 06/02/22 18:40 67 24 138/81 95 06/02/22 18:38 66 26 H 93 06/02/22 18:36 69 28 H 128/89 94 06/02/22 18:34 74 29 H 136/84 93 06/02/22 18:32 74 32 H 92 06/02/22 18:30 72 35 H 91 06/02/22 18:29 72 37 H 143/84 H 87 L 06/02/22 18:28 73 37 H 71 L 06/02/22 18:26 67 20 68 L 06/02/22 18:24 65 30 H 98 06/02/22 18:22 69 26 H 78 L 06/02/22 18:20 64 16 100 06/02/22 18:18 63 33 H 93 06/02/22 18:16 78 29 H 90 06/02/22 18:14 62 22 89 L 06/02/22 18:12 53 L 26 H 96 06/02/22 18:11 60 30 H 76/45 L 96 06/02/22 18:10 65 31 H 86 L 06/02/22 18:08 62 34 H 100 06/02/22 18:07 66 30 H 75/45 L 100 06/02/22 18:06 63 32 H 06/02/22 18:04 56 L 24 82 L 06/02/22 18:02 60 33 H 85 L 06/02/22 18:01 63 31 H 80/60 L 86 L 06/02/22 18:00 67 29 H 87 L 06/02/22 17:58 72 21 95 06/02/22 17:57 69 29 H 82/60 L 94 06/02/22 17:56 24 78 L 06/02/22 17:55 85 L 06/02/22 15:11 36.4 C L 82 26 H 78/59 L 95 06/02/22 11:40 120 H 107/72 06/02/22 11:10 36.3 C L 129 H 18 107/72 93 Coding Level of Care Code Critical Care 1st 30-74 mins Diagnoses Admitted to intensive care unit Z78.9 Atrial fibrillation with rapid ventricular response I48.91 Hypotension I95.9 Cardiomyopathy I42.9 Hypertension I10 Hypercholesterolemia E78.00 Abnormality of lung on CXR R91.8 Elevated troponin R77.8 Hypothyroidism (acquired) E03.9 Time Spent (min) 45
[2022-06-02 20:47] LABS: INR 1.3 (0.9-1.1); Partial Thromboplastin Ratio 1.6; Partial Thromboplastin Time 44.3 Seconds (21.0-31.0)
--- NOTE | 2022-06-02 21:18 | XRay Report ---
XR chest 1V portable CLINICAL HISTORY: ICU Status/fluid overload TECHNIQUE: Single frontal radiograph of the chest was obtained. Comparison: Comparison is made to chest radiograph 06/02/2022 FINDINGS: No lines and tubes are seen. Cardiomegaly is noted. Prominence and cephalization of the vasculature i s seen. Stable right greater than left lung opacities. There is a moderate right and small left pleur al effusion, unchanged from prior exam. IMPRESSION: Stable appearance of moderate right and small left pleural effusion with right greater than left airs pace opacities. These are favored to represent atelectasis with or without superimposed aspiration/pn eumonia. ACT 112: Negative or not required by law. Electronically signed by: Joaquim Payan M.D. 06/02/2022 9:17 PM
[2022-06-02] MEDS: ATORVASTATIN 20 MG TAB PO SCH (21:45)
--- NOTE | 2022-06-02 22:01 | Communication Note ---
Date of Service: June 02, 2022 2140: Received a message from nursing staff that the patient had become confused and a bit agitated. On assessment at bedside, the patient is trying to sleep and trying to keep the covers on. She complains of being cold. She responds to name, but reports that she is in "[place]" when you ask her location. She becomes increasingly agitated when attempting to examine patient. She moves all of her extremities appropriately. Cranial nerves II through XII grossly intact. No significant changes in any of the patient's vital signs. She has been off the Levophed for the last several minutes. She has less of an oxygen requirement at this point. Heart rate has been appropriate as well. Given the patient's change in mental status as well as ongoing A. fib and ongoing and climbing lactate, I did elect to evaluate the patient for possible thromboembolic events including brain and abdomen. When I did press on the patient's abdomen, she did become increasingly agitated and could not describe if she was having pain or not. She does not appear to have a rigid abdomen on exam, however I am concerned that again given her period of profound hypotension as well as A. fib and potential for thromboembolic events, the patient certainly could have thrown a clot resulting in some of her ongoing symptoms as well as laboratory findings. We will start the patient on Normosol at 100 mL/h. While she does have a slight GUANAKO with a creatinine of 1.39, I do feel that the risks outweigh the benefits and CTA is warranted. CTA was obtained. Upon return from CT, the patient is more awake and alert. She is pleasant and communicative. She answers questions more appropriately at this time. Her exam is completely unremarkable again. She appears back at her baseline. Repeat labs showed improvement of renal function and lactate after continue with gentle fluid resuscitation. Additionally, no acute findings found on CT imaging studies. I have personally spent 37 minutes of critical care time in the direct management of this patient. This is a life/limb threatening event. This includes time spent evaluating patient, direct bedside care, chart review, placing orders, interpretation of diagnostic studies, discussion with consultants, patient, and family members, as well as other required patient management activities. This time is exclusive of all separately billable procedures, and teaching time and separate from and in addition to any other critical care service time. Coding Level of Care Code Critical Care ea addt'l 30 min Time Spent (min) 37
[2022-06-02] MEDS: NORMOSOL-R 1,000 ML IV SCH (22:10)
[2022-06-02] MEDS ORDERED: Nursing to Pharmacy Communication SCH (22:30)
[2022-06-02] MEDS ORDERED: OPTIRAY 320 125ml IV ONE (22:30)
[2022-06-03 00:07] LABS: Appearance Urine Cloudy (Clear); Bacteria Urine Automated Negative (Negative); Blood Urine 3+ (Negative); Color Urine Orange; Epithelial Cell Urine Auto >30 /lpf (0-5); Glucose Urine UA Negative (Negative); Ketones Urine Negative (Negative); Leukocyte Esterase Urine Trace (Negative); Nitrite Urine Negative (Negative); Protein Urine 1+ (Negative); RBC Urine Automated >30 /hpf (0-4); Urobilinogen Urine Negative (Negative)
[2022-06-03 00:11] LABS: Bilirubin Urine 1+ (Negative); Specific Gravity Urine > 1.060 (1.000-1.030)
[2022-06-03 00:59] LABS: BUN Creatinine Ratio 27.5 (10-20); Calcium 9.1 mg/dl (8.5-10.1); Creatinine Clr Calc Pharmacy 47.9 ml/min; Est GFR (African American) 52.3 ml/min; Est GFR (Non-African American) 45.1 ml/min; Magnesium 2.4 mg/dl (1.7-2.4); Phosphorus 4.7 mg/dl (2.5-4.9); Potassium 4.9 mmol/L (3.5-5.1)
[2022-06-03 03:39] LABS: Basophils # (auto) 0.03 K/uL (0-0.2); Basophils % (auto) 0.2 %; Hematocrit (blood only) 40.4 % (34.1-44.9); Hemoglobin 12.9 g/dl (12.0-16.0); Immature Granulocytes # (auto) 0.14 K/uL (0.00-0.02); Lymphocytes # (auto) 1.88 K/uL (1.2-3.4); Lymphocytes % (auto) 13.6 %; Mean Corpuscular Hemoglobin 29.6 pg (25.0-34.0); Mean Corpuscular Hgb Conc 31.9 g/dL (32.0-36.0); Mean Corpuscular Volume 92.7 fL (80.0-100.0); Mean Platelet Volume 10.9 fL (9.4-12.3); Monocytes # (auto) 1.12 K/uL (0.24-0.82); Monocytes % (auto) 8.1 %; Neutrophils # (auto) 10.65 K/uL (1.4-6.5); Neutrophils % (auto) 77.1 %; Nucleated RBC # (auto) 0.02 K/uL (0-0); Nucleated RBC % (auto) 0.1 %; Platelet Count 201 K/uL (130-400); RDW Coefficient of Variation 14.9 % (11.5-14.5); RDW Standard Deviation 50.7 fL (36.4-46.3); Red Blood Count 4.36 M/uL (3.93-5.22); White Blood Count 13.82 K/ul (4.8-10.8)
[2022-06-03 04:01] LABS: Albumin Level 3.3 gm/dl (3.4-5.0); BUN Creatinine Ratio 31.2 (10-20); Calcium 8.5 mg/dl (8.5-10.1); Creatinine Clr Calc Pharmacy 52.7 ml/min; Est GFR (African American) 58.7 ml/min; Est GFR (Non-African American) 50.7 ml/min; Magnesium 2.4 mg/dl (1.7-2.4); Phosphorus 4.2 mg/dl (2.5-4.9); Potassium 4.5 mmol/L (3.5-5.1)
[2022-06-03 04:12] LABS: Partial Thromboplastin Ratio 2.1
[2022-06-03 04:20] LABS: Partial Thromboplastin Time 58.6 Seconds (21.0-31.0)
[2022-06-03] MEDS: HEPARIN SODIUM/DEXTROSE 25,000 UNITS/500 ML BAG IV SCH (06:17)
[2022-06-03] MEDS: LEVOTHYROXINE SODIUM 75 MCG TABLET PO SCH (06:57)
--- NOTE | 2022-06-03 07:38 | Critical Care Progress Note ---
Date of Service June 03, 2022 Assessment & Plan (1) Admitted to intensive care unit: (2) Hypotension: (3) Cardiomyopathy: (4) Atrial fibrillation with rapid ventricular response: (5) Elevated troponin: (6) Pleural effusion: (7) Acidosis, lactic: Plan: Reason Critically Ill: 71-year-old female who was profoundly hypotensive requiring vasopressor support in the setting of A. fib with RVR requiring ongoing close hemodynamic monitoring and medication adjustments. 24 Hour events: Patient transferred to the ICU due to hypotension altered mental status and lactic acidosis. She was initially on pressors. She was administered calcium to reverse the effects of the verapamil. Her imaging studies were unremarkable. Her sensorium is improved. Renal functions improving this morning. She has been weaned off pressors. She continues to have atrial fibrillation with rapid ventricular response. Recommendations: NEURO -metabolic encephalopathy improved this morning. She is oriented to person place and time. CARDIAC/VASCULAR -atrial fibrillation with rapid ventricular response and cardiomyopathy. Exacerbated with the use of verapamil so we will avoid calcium channel blockers in the future. We will give 5 mg IV metoprolol this morning and start 12.5 mg p.o. every 6 hours. Will load with 500 mcg digoxin and defer additional digoxin and rate controlling agents to cardiology. Continue IV heparin. Decrease IV fluids down to 50 cc an hour with plans to discontinue once the patient is taking adequate p.o. Will likely need ischemic evaluation at some point. Lactate is clearing RESPIRATORY -hypoxemia respiratory failure. Small pleural effusions. Would not recommend thoracentesis at this time as the patient is fully anticoagulated and minimally symptomatic. Restart diuretics as tolerated and discontinue IV fluids once the patient is taking adequate p.o. GI/NUTRITION -okay to advance diet as tolerated RENAL/LYTES -acute kidney injury: Better this morning. Decreasing IV fluids and will follow urine output. -keep Muse catheter for adequate tracking of input and output. ENDO -glycemic control per protocol. Continue home Synthroid. HEME -no current issues. Continue anticoagulation for atrial fibrillation with heparin infusion. Follow platelet counts ID -procalcitonin negative. Holding on antibiotics LINES/IV ACCESS - * PIVs x2 * Muse DVT PROPHYLAXIS - * Heparin gtt * SCDs Patient appears clinically improved at this point time. She can likely downgrade out of the intensive care unit back to telemetry status. Will defer disposition to the hospitalist service. Critical care services will sign off. Feel free to contact us if we can be of additional assistance. Admission and Anticipated Discharge Date Admission Date: June 01, 2022 Review of Systems Review of Systems: All systems reviewed & are unremarkable except as noted in Subjective Physical Exam Constitutional: WD/WN, vitals as above Neck: trachea midline, no thyromegaly Respiratory: normal respiratory effort, lungs clear to auscultation Cardiovascular: RRR, no murmur, no edema Gastrointestinal (Abdomen): normal bowel sounds, soft, nontender, no hepatosplenomegaly Musculoskeletal: Extremities: extremities normal to inspection Skin: no rashes, warm and dry Neurologic: Nonfocal exam Lymphatic: no cervical lymphadenopathy Results & Data Results & Data ([facility]) Vital Signs (Past 12 Hours) Vital Signs Temp Pulse Resp BP Pulse Ox 06/03/22 06:00 37.6 C H 99 H 20 123/84 94 06/03/22 05:54 37.1 C 103 H 18 118/77 95 06/03/22 05:00 37.6 C H 112 H 29 H 95/75 L 91 06/03/22 04:30 37.5 C 92 H 19 111/74 94 06/03/22 04:00 37.5 C 88 19 120/69 93 06/03/22 03:37 37.4 C 112 H 22 110/69 92 06/03/22 03:00 37.4 C 78 20 113/80 96 06/03/22 02:30 37.4 C 76 18 104/70 95 06/03/22 02:00 37.4 C 79 24 117/69 95 06/03/22 01:00 37.5 C 83 20 119/72 95 06/03/22 00:30 37.6 C H 78 21 127/98 95 06/03/22 00:00 37.6 C H 70 20 110/68 96 06/02/22 23:45 37.6 C H 79 21 111/67 97 06/02/22 23:15 37.4 C 83 22 123/88 95 06/02/22 23:00 37.4 C 79 24 138/89 97 06/02/22 22:45 37.4 C 81 27 H 127/72 94 06/02/22 22:38 37.4 C 83 31 H 127/73 95 06/02/22 22:01 37.2 C 72 21 114/69 93 07/09/22 21:40 37.2 C 74 20 124/75 93 06/02/22 21:30 37 C 84 26 H 142/71 H 92 06/02/22 21:22 37 C 70 22 119/83 99 06/02/22 21:01 36.9 C 80 25 H 97 06/02/22 21:00 83 26 H 126/82 98 06/02/22 20:53 81 27 H 128/86 99 06/02/22 20:30 78 22 143/93 H 99 06/02/22 20:00 36.9 C 81 19 139/107 H 94 06/02/22 19:43 82 23 146/74 H 98 Critical Care Results & Data Vital Signs (Past 12 Hours) Vital Signs Temp Pulse Resp BP Pulse Ox 06/03/22 06:00 37.6 C H 99 H 20 123/84 94 06/03/22 05:54 37.1 C 103 H 18 118/77 95 06/03/22 05:00 37.6 C H 112 H 29 H 95/75 L 91 06/03/22 04:30 37.5 C 92 H 19 111/74 94 06/03/22 04:00 37.5 C 88 19 120/69 93 06/03/22 03:37 37.4 C 112 H 22 110/69 92 06/03/22 03:00 37.4 C 78 20 113/80 96 06/03/22 02:30 37.4 C 76 18 104/70 95 06/03/22 02:00 37.4 C 79 24 117/69 95 06/03/22 01:00 37.5 C 83 20 119/72 95 06/03/22 00:30 37.6 C H 78 21 127/98 95 06/03/22 00:00 37.6 C H 70 20 110/68 96 06/02/22 23:45 37.6 C H 79 21 111/67 97 06/02/22 23:15 37.4 C 83 22 123/88 95 06/02/22 23:00 37.4 C 79 24 138/89 97 06/02/22 22:45 37.4 C 81 27 H 127/72 94 06/02/22 22:38 37.4 C 83 31 H 127/73 95 06/02/22 22:01 37.2 C 72 21 114/69 93 06/02/22 21:40 37.2 C 74 20 124/75 93 06/02/22 21:30 37 C 84 26 H 142/71 H 92 06/02/22 21:22 37 C 70 22 119/83 99 06/02/22 21:01 36.9 C 80 25 H 97 06/02/22 21:00 83 26 H 126/82 98 06/02/22 20:53 81 27 H 128/86 99 06/02/22 20:30 78 22 143/93 H 99 06/02/22 20:00 36.9 C 81 19 139/107 H 94 06/02/22 19:43 82 23 146/74 H 98 Lab & Micro Results (Past 24 Hours) RBC 4.36 M/uL (3.93-5.22) 06/03/22 WBC 13.82 K/ul (4.8-10.8) H 06/03/22 Hgb 12.9 g/dl (12.0-16.0) 06/03/22 Hct 40.4 % (34.1-44.9) 06/03/22 MCV 92.7 fL (80.0-100.0) 06/03/22 MCH 29.6 pg (25.0-34.0) 06/03/22 MCHC 31.9 g/dL (32.0-36.0) L 06/03/22 RDW Standard Deviation 50.7 fL (36.4-46.3) H 06/03/22 RDW Coefficient of Variation 14.9 % (11.5-14.5) H 06/03/22 Plt Count 201 K/uL (130-400) 06/03/22 MPV 10.9 fL (9.4-12.3) 06/03/22 Nucleated Red Blood Cells % (auto) 0.1 % 06/03/22 Nucleated RBC Absolute Count (auto) 0.02 K/uL (0-0) H 06/03/22 Neutrophils (%) (Auto) 77.1 % 06/03/22 Lymphocytes (%) (Auto) 13.6 % 06/03/22 Monocytes # (Auto) 1.12 K/uL (0.24-0.82) H 06/03/22 Eosinophils # (Auto) 0.00 K/uL (0-0.50) 06/03/22 Immature Granulocyte % (Auto) 1.0 % 06/03/22 Neutrophils # (Auto) 10.65 K/uL (1.4-6.5) H 06/03/22 Lymphocytes # (Auto) 1.88 K/uL (1.2-3.4) 06/03/22 Monocytes # (Auto) 1.12 K/uL (0.24-0.82) H 06/03/22 Eosinophils # (Auto) 0.00 K/uL (0-0.50) 06/03/22 Basophils # (Auto) 0.03 K/uL (0-0.2) 06/03/22 Immature Granulocyte # (Auto) 0.14 K/uL (0.00-0.02) H 06/03/22 Polychromasia 1+ 06/02/22 Poikilocytosis Present 06/02/22 Echinocytes 1+ 06/02/22 Acanthocytes 2+ 06/02/22 Na 137 mmol/L (136-145) 06/03/22 K 4.5 mmol/L (3.5-5.1) 06/03/22 Cl 108 mmol/L (98-107) H 06/03/22 CO2 20 mmol/L (21-32) L 06/03/22 Anion Gap 9 (3-11) 06/03/22 BUN 34 mg/dl (6-23) H 06/03/22 Creatinine 1.09 mg/dl (0.6-1.2) 06/03/22 Estimated GFR ( Amer) 58.7 ml/min 06/03/22 Estimated GFR (Non-Af Amer) 50.7 ml/min 06/03/22 BUN/Creatinine Ratio 31.2 (10-20) H 06/03/22 Glu 128 mg/dl (70-99(Fasting)) H 06/03/22 Ca 8.5 mg/dl (8.5-10.1) 06/03/22 Phosphorus Level 4.2 mg/dl (2.5-4.9) 06/03/22 Albumin 3.3 gm/dl (3.4-5.0) L 06/03/22 Mg 2.4 mg/dl (1.7-2.4) 06/03/22 03:21 06/03/22 Calcium Level 8.5 mg/dl (8.5-10.1) 06/03/22 03:21 06/03/22 Prothromb Time International Ratio 1.3 (0.9-1.1) H 06/02/22 20:24 06/02/22 Venous Blood pH 7.29 (7.36-7.41) L 06/03/22 00:19 06/03/22 Venous Blood Partial Pressure CO2 40 mmHg (38-50) 06/02/22 18:18 06/02/22 Venous Blood Partial Pressure O2 17 mmHg 06/02/22 18:18 06/02/22 Venous Blood HCO3 12 mmol/L 06/02/22 18:18 06/02/22 Venous Blood Base Excess -17.1 mEq/L 06/02/22 18:18 06/02/22 Venous Blood Oxygen Saturation < 60.0 % 06/02/22 18:18 06/02/22 Diagnostic Findings (Past 24 Hours) Chest X-Ray 06/02/22 17:09 XR chest 1V portable CLINICAL HISTORY: F/U CXR from admission re opacities. COMPARISON STUDY: 06/01/2022 TECHNIQUE: 1 view of the chest FINDINGS: Single frontal view of the chest demonstrates the heart to again be enlarged. There is interval worsening of right lower lobe alveolar opacity and evidence for increased right pleural effusion. There is also small left pleural effusion and left basilar atelectasis. The remainder the lungs are clear. There is no evidence for vascular congestion. There is no acute osseous pathology. IMPRESSION: 1. Worsening right lower lobe alveolar opacity in right pleural effusion. ACT 112: Negative or not required by law. Electronically signed by: Mikel Travis M.D. 06/02/2022 5:34 PM Chest X-Ray 06/02/22 18:16 XR chest 1V portable CLINICAL HISTORY: ICU Status/fluid overload TECHNIQUE: Single frontal radiograph of the chest was obtained. Comparison: Comparison is made to chest radiograph 06/02/2022 FINDINGS: No lines and tubes are seen. Cardiomegaly is noted. Prominence and cephalization of the vasculature is seen. Stable right greater than left lung opacities. There is a moderate right and small left pleural effusion, unchanged from prior exam. IMPRESSION: Stable appearance of moderate right and small left pleural effusion with right greater than left airspace opacities. These are favored to represent atelectasis with or without superimposed aspiration/pneumonia. ACT 112: Negative or not required by law. Electronically signed by: Joaquim Payan M.D. 06/02/2022 9:17 PM I & O Totals 24 Hours 06/02/22 06/03/22 06/04/22 06:59 06:59 06:59 Intake Total 750 / 750 1688.612 / 1688.612 Output Total 887 / 887 Balance 750 / 750 801.612 / 801.612 Cumulative 06/01/22 18:43 thru 06/03/22 06:14 Intake Total 2438.612 Output Total 887 Balance 1551.612 RT Ventilator Mngmt (Last Documented) Ventilator Ordered Settings Respiratory Rate 20 06/03/22 06:00 Ventilator - PT Measurements Respiratory Rate 20 Coding Level of Care Code 16760 Subseq Hosp Care Lvl 3 Diagnoses Admitted to intensive care unit Z78.9 Hypotension I95.9 Cardiomyopathy I42.9 Atrial fibrillation with rapid ventricular response I48.91 Elevated troponin R77.8 Pleural effusion J90 Acidosis, lactic E87.2
--- NOTE | 2022-06-03 08:08 | Hospitalist Progress Note ---
Date of Service June 03, 2022 Assessment & Plan (1) Atrial fibrillation with rapid ventricular response: Plan: Attending: Dr. Webster Previous 24 hours: Patient received verapamil in the morning and then multiple doses of metoprolol throughout the day. In the late afternoon patient had what appeared initially to be a vagal response. Patient had been in atrial fibrillation with a rate in the 130s all day long. Over period of several hours she began to trend down with her heart rate. She complained of nausea and stated that she did not feel well. She was given 25 mg of Phenergan. Nursing staff noticed that her systolic blood pressure was 78 and that she had a heart rate in the 60s. She also appeared to be clammy and diaphoretic at that time. She was given a normal saline bolus of 250 mL. A chest x-ray was obtained which showed some right pleural fluid and possible development of pulmonary edema. Patient was transferred to the intensive care unit for monitoring and ultimately required norepinephrine and calcium gluconate to control blood pressure. There is no bump in troponin. Patient recovered overnight. Recommendations: Patient seems to stabilize from last evening's event. Verapamil has been discontinued. We will continue with digoxin for atrial fibrillation and with metoprolol for rate control Elevated troponin/atrial fibrillation with RVR thought to be secondary to long- term tachycardia from atrial fibrillation due to patient not being on her medications for several weeks to months Cardiology consulted. Appreciate Dr. Arora's input Patient continues in atrial fibrillation with rapid ventricular rate into the 120s and 130s No chest pain or tightness Echocardiogram completed and shows significant reduction in left ventricular ejection fraction of 15 to 20% with moderate hypokinesis involving the basal inferior and posterior segments with near akinesis of the remaining left ventricle Reduced ejection fraction could be secondary to chronic tachycardia from atrial fibrillation Patient will need LifeVest on discharge and follow-up in 4 to 6 weeks with cardiology No plans for cardiac catheterization at this time Heparin IV low-dose per protocol Patient could be converted to Eliquis and heparin drip should be discontinued Patient downgraded from ICU status to PCU/Te. (2) Elevated troponin: Plan: This is currently trending down at this time. No chest pain or tightness Cardiology on board and doubts that this is an acute OK No plans for patient's facility 05/30/ invasive studies at this time (3) Hypertension: Plan: Continue treatment for atrial fibrillation with RVR Continue to monitor on telemetry while in A. Fib and meds are being adjusted (4) Hypercholesterolemia: Plan: Continue atorvastatin 20 mg (5) Stas's thyroiditis: Plan: Stas's thyroiditis/hypothyroidism- Continue levothyroxine 75 mcg p.o. daily TSH mildly elevated at 9.749, which can be addressed by her PCP after discharge (6) Hypothyroidism (acquired): Plan: Follow-up in 4 to 6 weeks with PCP for adjustment of levothyroxine as needed DVT prophylaxis: Convert tpo Eliquis Exertional intolerance: May be age-appropriate. Orders for PT and OT evaluation requested Disposition: Anticipate discharge home when stable Admission and Anticipated Discharge Date Admission Date: June 01, 2022 Subjective Attending: Dr. Webster Patient seen in apatient seen and examined in room 108. She is alert and oriented times three. She has no further feelings of diaphoresis. She denies chest pain and tightness. She is unaware of her current Deborah fibrillation with RVR. She has no acute complaints. She denies fever, chills, sweats, rigors. Nausea is resolved Review of Systems Review of Systems: A total of 10 systems was reviewed and is negative other than as listed in the HPI Physical Exam Physical Exam: GENERAL : No acute distress EYES: No icterus, gaze conjugate NOSE: No evidence of epistaxis MOUTH: No lesions or candidiasis NECK: Supple LUNGS: CTA B/L, no wheezes, rales or rhonchi HEART: Irregular, irregular, tachycardic ABDOMEN: Soft, NT, ND, BS Present EXTREMITIES: No LE edema, pedal pulses intact. Onychomycosis all 10 toes SKIN: Dry and cool NEURO: A&OX3 Results & Data Results & Data ([place]) Vital Signs (Past 12 Hours) Vital Signs Temp Pulse Resp BP Pulse Ox 06/03/22 07:00 37.8 C H 113 H 25 H 122/93 96 06/03/22 06:00 37.6 C H 99 H 20 123/84 94 06/03/22 05:54 37.1 C 103 H 18 118/77 95 06/03/22 05:00 37.6 C H 112 H 29 H 95/75 L 91 06/03/22 04:30 37.5 C 92 H 19 111/74 94 06/03/22 04:00 37.5 C 88 19 120/69 93 06/03/22 03:37 37.4 C 112 H 22 110/69 92 06/03/22 03:00 37.4 C 78 20 113/80 96 06/03/22 02:30 37.4 C 76 18 104/70 95 06/03/22 02:00 37.4 C 79 24 117/69 95 06/03/22 01:00 37.5 C 83 20 119/72 95 06/03/22 00:30 37.6 C H 78 21 127/98 95 06/03/22 00:00 37.6 C H 70 20 110/68 96 06/02/22 23:45 37.6 C H 79 21 111/67 97 06/02/22 23:15 37.4 C 83 22 123/88 95 06/02/22 23:00 37.4 C 79 24 138/89 97 06/02/22 22:45 37.4 C 81 27 H 127/72 94 06/02/22 22:38 37.4 C 83 31 H 127/73 95 06/02/22 22:01 37.2 C 72 21 114/69 93 06/02/22 21:40 37.2 C 74 20 124/75 93 06/02/22 21:30 37 C 84 26 H 142/71 H 92 06/02/22 21:22 37 C 70 22 119/83 99 06/02/22 21:01 36.9 C 80 25 H 97 06/02/22 21:00 83 26 H 126/82 98 06/02/22 20:53 81 27 H 128/86 99 06/02/22 20:30 78 22 143/93 H 99 Critical Care Results & Data Vital Signs (Past 12 Hours) Vital Signs Temp Pulse Resp BP Pulse Ox 06/03/22 07:00 37.8 C H 113 H 25 H 122/93 96 06/03/22 06:00 37.6 C H 99 H 20 123/84 94 06/03/22 05:54 37.1 C 103 H 18 118/77 95 06/03/22 05:00 37.6 C H 112 H 29 H 95/75 L 91 06/03/22 04:30 37.5 C 92 H 19 111/74 94 06/03/22 04:00 37.5 C 88 19 120/69 93 06/03/22 03:37 37.4 C 112 H 22 110/69 92 06/03/22 03:00 37.4 C 78 20 113/80 96 06/03/22 02:30 37.4 C 76 18 104/70 95 06/03/22 02:00 37.4 C 79 24 117/69 95 06/03/22 01:00 37.5 C 83 20 119/72 95 06/03/22 00:30 37.6 C H 78 21 127/98 95 06/03/22 00:00 37.6 C H 70 20 110/68 96 06/02/22 23:45 37.6 C H 79 21 111/67 97 06/02/22 23:15 37.4 C 83 22 123/88 95 06/02/22 23:00 37.4 C 79 24 138/89 97 06/02/22 22:45 37.4 C 81 27 H 127/72 94 06/02/22 22:38 37.4 C 83 31 H 127/73 95 06/02/22 22:01 37.2 C 72 21 114/69 93 06/02/22 21:40 37.2 C 74 20 124/75 93 06/02/22 21:30 37 C 84 26 H 142/71 H 92 06/02/22 21:22 37 C 70 22 119/83 99 06/02/22 21:01 36.9 C 80 25 H 97 06/02/22 21:00 83 26 H 126/82 98 06/02/22 20:53 81 27 H 128/86 99 06/02/22 20:30 78 22 143/93 H 99 Lab & Micro Results (Past 24 Hours) RBC 4.36 M/uL (3.93-5.22) 06/03/22 WBC 13.82 K/ul (4.8-10.8) H 06/03/22 Hgb 12.9 g/dl (12.0-16.0) 06/03/22 Hct 40.4 % (34.1-44.9) 06/03/22 MCV 92.7 fL (80.0-100.0) 06/03/22 MCH 29.6 pg (25.0-34.0) 06/03/22 MCHC 31.9 g/dL (32.0-36.0) L 06/03/22 RDW Standard Deviation 50.7 fL (36.4-46.3) H 06/03/22 RDW Coefficient of Variation 14.9 % (11.5-14.5) H 06/03/22 Plt Count 201 K/uL (130-400) 06/03/22 MPV 10.9 fL (9.4-12.3) 06/03/22 Nucleated Red Blood Cells % (auto) 0.1 % 06/03/22 Nucleated RBC Absolute Count (auto) 0.02 K/uL (0-0) H 06/03/22 Neutrophils (%) (Auto) 77.1 % 06/03/22 Lymphocytes (%) (Auto) 13.6 % 06/03/22 Monocytes # (Auto) 1.12 K/uL (0.24-0.82) H 06/03/22 Eosinophils # (Auto) 0.00 K/uL (0-0.50) 06/03/22 Immature Granulocyte % (Auto) 1.0 % 06/03/22 Neutrophils # (Auto) 10.65 K/uL (1.4-6.5) H 06/03/22 Lymphocytes # (Auto) 1.88 K/uL (1.2-3.4) 06/03/22 Monocytes # (Auto) 1.12 K/uL (0.24-0.82) H 06/03/22 Eosinophils # (Auto) 0.00 K/uL (0-0.50) 06/03/22 Basophils # (Auto) 0.03 K/uL (0-0.2) 06/03/22 Immature Granulocyte # (Auto) 0.14 K/uL (0.00-0.02) H 06/03/22 Polychromasia 1+ 06/02/22 Poikilocytosis Present 06/02/22 Echinocytes 1+ 06/02/22 Acanthocytes 2+ 06/02/22 Na 137 mmol/L (136-145) 06/03/22 K 4.5 mmol/L (3.5-5.1) 06/03/22 Cl 108 mmol/L (98-107) H 06/03/22 CO2 20 mmol/L (21-32) L 06/03/22 Anion Gap 9 (3-11) 06/03/22 BUN 34 mg/dl (6-23) H 06/03/22 Creatinine 1.09 mg/dl (0.6-1.2) 06/03/22 Estimated GFR ( Amer) 58.7 ml/min 06/03/22 Estimated GFR (Non-Af Amer) 50.7 ml/min 06/03/22 BUN/Creatinine Ratio 31.2 (10-20) H 06/03/22 Glu 128 mg/dl (70-99(Fasting)) H 06/03/22 Ca 8.5 mg/dl (8.5-10.1) 06/03/22 Phosphorus Level 4.2 mg/dl (2.5-4.9) 06/03/22 Albumin 3.3 gm/dl (3.4-5.0) L 06/03/22 Mg 2.4 mg/dl (1.7-2.4) 06/03/22 03:21 06/03/22 Calcium Level 8.5 mg/dl (8.5-10.1) 06/03/22 03:21 06/03/22 Prothromb Time International Ratio 1.3 (0.9-1.1) H 06/02/22 20:24 06/02/22 Venous Blood pH 7.29 (7.36-7.41) L 06/03/22 00:19 06/03/22 Venous Blood Partial Pressure CO2 40 mmHg (38-50) 06/02/22 18:18 06/02/22 Venous Blood Partial Pressure O2 17 mmHg 06/02/22 18:18 06/02/22 Venous Blood HCO3 12 mmol/L 06/02/22 18:18 06/02/22 Venous Blood Base Excess -17.1 mEq/L 06/02/22 18:18 06/02/22 Venous Blood Oxygen Saturation < 60.0 % 06/02/22 18:18 06/02/22 Diagnostic Findings (Past 24 Hours) Chest X-Ray 06/02/22 17:09 XR chest 1V portable CLINICAL HISTORY: F/U CXR from admission re opacities. COMPARISON STUDY: 06/01/2022 TECHNIQUE: 1 view of the chest FINDINGS: Single frontal view of the chest demonstrates the heart to again be enlarged. There is interval worsening of right lower lobe alveolar opacity and evidence for increased right pleural effusion. There is also small left pleural effusion and left basilar atelectasis. The remainder the lungs are clear. There is no evidence for vascular congestion. There is no acute osseous pathology. IMPRESSION: 1. Worsening right lower lobe alveolar opacity in right pleural effusion. ACT 112: Negative or not required by law. Electronically signed by: Mikel Travis M.D. 06/02/2022 5:34 PM Chest X-Ray 06/02/22 18:16 XR chest 1V portable CLINICAL HISTORY: ICU Status/fluid overload TECHNIQUE: Single frontal radiograph of the chest was obtained. Comparison: Comparison is made to chest radiograph 06/02/2022 FINDINGS: No lines and tubes are seen. Cardiomegaly is noted. Prominence and cephalization of the vasculature is seen. Stable right greater than left lung opacities. There is a moderate right and small left pleural effusion, unchanged from prior exam. IMPRESSION: Stable appearance of moderate right and small left pleural effusion with right greater than left airspace opacities. These are favored to represent atelectasis with or without superimposed aspiration/pneumonia. ACT 112: Negative or not required by law. Electronically signed by: Joaquim Payan M.D. 06/02/2022 9:17 PM I & O Totals 24 Hours 06/02/22 06/03/22 06/04/22 06:59 06:59 06:59 Intake Total 750 / 750 1688.612 / 1688.612 975 / 975 Output Total 887 / 887 Balance 750 / 750 801.612 / 801.612 975 / 975 Cumulative 06/01/22 18:43 thru 06/03/22 07:55 Intake Total 3413.612 Output Total 887 Balance 2526.612 RT Ventilator Mngmt (Last Documented) Ventilator Ordered Settings Respiratory Rate 25 06/03/22 07:00 Ventilator - PT Measurements Respiratory Rate 25 PG Care Time/CCT Total # of Minutes Spent Total Time Spent with Patient: Total time spent is greater than 50% in coordination of care (as documented) at patient's floor/unit and/or counseling patient:40 minutes Coding Level of Care Code 44624 Subseq Hosp Care Lvl 3 Diagnoses Atrial fibrillation with rapid ventricular response I48.91 Elevated troponin R77.8 Hypertension I10 Hypercholesterolemia E78.00 Stas's thyroiditis E06.3 Hypothyroidism (acquired) E03.9
[2022-06-03] MEDS ORDERED: DIGOXIN 500 MCG in SYRINGE 0 ML IV ONE (08:10)
[2022-06-03] MEDS ORDERED: METOPROLOL TARTRATE 1 MG/ML VIAL IV STA (08:11)
[2022-06-03] MEDS ORDERED: DIGOXIN 500 MCG in SYRINGE 8 ML IV ONE (08:30)
[2022-06-03] MEDS: NORMOSOL-R 1,000 ML IV SCH (08:36)
[2022-06-03] MEDS: MAGNESIUM OXIDE 400 MG TAB PO SCH ×2 (08:38→20:10)
[2022-06-03] MEDS: POTASSIUM CHLORIDE CRTAB 20 MEQ TABCR PO SCH (08:38)
[2022-06-03] MEDS: ASPIRIN 81 MG ECTAB PO SCH (08:38)
--- NOTE | 2022-06-03 09:30 | CT Scan Report ---
CT angio chest PE protocol CLINICAL HISTORY: Atrial fibrillation . Bilateral pleural effusions COMPARISON STUDY: Portable chest from 06/02/2022 CT DOSE: 2239.59 mGy.cm TECHNIQUE: CT Angio of the chest was performed.followed by image post processing with coronal, and s agittal MIP reformats. Contrast Volume: Optiray 320, 117 ml FINDINGS: Vasculature: There is homogeneous perfusion of the pulmonary vasculature bilaterally. No intraluminal filling defects or evidence for pulmonary embolus is seen. Airway: The airway is clear. No endobronchial lesion is identified. Lungs and pleural: There is a large right pleural effusion and small left pleural effusion with compr essive atelectasis/collapse of both lung bases, right greater than left. The lungs are otherwise jaja r of acute alveolar opacities, air bronchograms or pulmonary nodules. Mediastinum: There is no evidence for pathologic adenopathy. The heart is enlarged. Minimal coronary artery calcifications present. The thoracic aorta is within normal limits. There is no evidence for p ericardial effusion. Osseous structures: There is no acute osseous pathology. Impression: 1. No CTA evidence for pulmonary embolus. 2. Large right pleural effusion with compressive atelectasis/collapse of the right lung base. 3. Small left pleural effusion with compressive atelectasis/collapse the left lung base. 4. Cardiomegaly. ACT 112: Negative or not required by law. Electronically signed by: Mikel Travis M.D. 06/03/2022 9:29 AM
--- NOTE | 2022-06-03 09:31 | CT Scan Report ---
CT head/brain wo con CLINICAL HISTORY: AMS COMPARISON STUDY: No previous studies for comparison. CT DOSE: TECHNIQUE: Standard CT of the Brain was performed without IV contrast. A dose lowering technique was utilized adhering to the principles of ALARA. FINDINGS: Extraaxial space: There is no evidence for subdural hematoma. There are no extra-axial fluid collecti ons. Ventricles and cisterns: The ventricles are normal in size and configuration. There is no evidence fo r midline shift or mass effect. Parenchyma: There is no subarachnoid or intraparenchymal hemorrhage. There is no evidence for an acut e infarct or cerebral edema. There is homogeneous attenuation of the brain parenchyma. There are no g ross mass lesions. Osseous structures: There is no evidence for an acute fracture. The visualized paranasal sinuses are clear. The mastoid air cells are clear bilaterally. Soft tissues: There is no evidence for focal soft tissue swelling. IMPRESSION: 1. No acute intracerebral pathology. ACT 112: Negative or not required by law. Electronically signed by: Mikel Travis M.D. 06/03/2022 9:30 AM
--- NOTE | 2022-06-03 09:38 | CT Scan Report ---
CT angio abdomen pelvis w con CLINICAL HISTORY: adb pain, lactic acidosis, A fib COMPARISON STUDY: No previous studies for comparison. CT DOSE: TECHNIQUE: Standard CT Angiogram of the aorta was performed with IV contrast followed by image post p rocessing with coronal, and sagittal MIP reformats... This CT exam was performed using one or more of the following dose reduction techniques: Automated ex posure control, adjustment of the mA and/or kV according to patient size, or use of iterative reconst ruction technique. CONTRAST: Optiray 320, 117 mL nonionic intravenous contrast. VASCULAR FINDINGS: Abdominal aorta: patent without aneurysm or dissection. Celiac trunk: patent without stenosis. Superior mesenteric artery: patent without stenosis. Right renal artery: patent without stenosis. Left renal artery: patent without stenosis. Inferior mesenteric artery: patent without stenosis. Right common iliac artery: patent without stenosis. Right internal iliac artery: patent without stenosis. Right external iliac artery: patent without stenosis. Left common iliac artery: patent without stenosis. Left internal iliac artery: patent without stenosis. Left external iliac artery: patent without stenosis NONVASCULAR FINDINGS: Abdominal cavity: There is mild abdominal ascites with fluid seen extending down the right paracolic gutter and within the pelvis. Liver: There is homogeneous attenuation of the liver parenchyma. There is no evidence for enhancing m ass lesion. Spleen: There is homogeneous attenuation of the splenic parenchyma. There is no enhancing mass lesion . Pancreas: There is homogeneous attenuation of the pancreatic parenchyma. There is no evidence for mas s lesion or peripancreatic fluid collection. Gall Bladder: There is suspicion of thickening of the gallbladder wall and pericholecystic edema. Gal lbladder ultrasound is recommended for further evaluation. Adrenal glands: The adrenal glands are normal in size and attenuation. There is no evidence for enhan cing mass lesion. Kidneys: There is homogeneous attenuation of the renal parenchyma bilaterally. There is no evidence f or renal calculus or hydronephrosis. There is no evidence for enhancing mass. Bowel: The bowel loops are normally placed within the abdomen and pelvis without evidence for dilatat ion or obstruction. There is no evidence for mass lesion. There are no inflammatory changes present. There is no evidence for free air. Bladder: Muse catheter is present within the bladder. : There is no evidence for pelvic mass or adenopathy. Osseous structures: There is no acute osseous pathology. Extensive degenerative changes are seen with in the spine with evidence for lumbar canal stenosis. IMPRESSION: 1. Essentially negative CT angiogram. 2. Suspicion of gallbladder wall thickening or pericholecystic edema. Old bladder ultrasound is recom mended to exclude the presence of acute cholecystitis. 3. Mild abdominal and pelvic ascites. ACT 112: Negative or not required by law. Electronically signed by: Mikel Travis M.D. 06/03/2022 9:36 AM
--- NOTE | 2022-06-03 09:39 | CT Scan Report ---
CT angio head w con CLINICAL HISTORY: AMS, A fib COMPARISON STUDY: No previous studies for comparison. CT DOSE: TECHNIQUE: CT Angio of the brain was performed.followed by image post processing with coronal, and s agittal MIP reformats. Contrast Volume: Optiray 320, 117 ml FINDINGS: Vascular findings: There is normal enhancement within the internal carotid arteries bilaterally. The re is normal enhancement noted within the anterior, middle and posterior cerebral arteries. Nonvascular findings: There is homogeneous attenuation of the brain parenchyma bilaterally. There is no evidence for an acute infarct or cerebral edema. IMPRESSION: 1. Negative CT angiogram of the brain with contrast. ACT 112: Negative or not required by law. Electronically signed by: Mikel Travis M.D. 06/03/2022 9:38 AM
--- NOTE | 2022-06-03 09:41 | CT Scan Report ---
CT angio neck with con CLINICAL HISTORY: AMS, A fib COMPARISON STUDY: No previous studies for comparison. CT DOSE: TECHNIQUE: CT Angio of the neck was performed.followed by image post processing with coronal, and sa gittal MIP reformats.. Stenosis assessment by NASCET criteria. Contrast Volume: Optiray 320, 117 ml FINDINGS: Vascular findings: Right common carotid artery: Patent without significant stenosis. Right internal carotid artery: Patent without significant stenosis. Right vertebral artery: Patent without significant stenosis. Left common carotid artery: Patent without significant stenosis. Left internal carotid artery: Patent without significant stenosis. Left vertebral artery: Patent without significant stenosis. Nonvascular findings: The parotid and submandibular salivary glands appear normal. There is no enlarged cervical adenopathy noted. The airway appears patent. The thyroid gland appears within normal limits. The lung apices ap pear within normal limits. Impression: 1. Negative CT angiogram of the neck with contrast. ACT 112: Negative or not required by law. Electronically signed by: Mikel Travis M.D. 06/03/2022 9:40 AM
--- NOTE | 2022-06-03 10:26 | XRay Report ---
XR chest 1V portable CLINICAL HISTORY: ICU Status/fluid overload. COMPARISON STUDY: 06/02/2022 TECHNIQUE: 1 view of the chest FINDINGS: Single frontal view of the chest demonstrates the heart to again be enlarged. Compared to previous ex amination, there is again a moderate right-sided pleural effusion with right middle and right lower l obe atelectasis/collapse. Small left pleural effusion with left lower lobe atelectasis /collapse is a lso present. There is very mild central vascular congestion. There is also suspicion of a small alveo lar opacity at the left lung apex. There is no acute osseous pathology. IMPRESSION: 1. Bilateral pleural effusions and bibasilar atelectasis/collapse, right greater than left are again seen. 2. Mild central vascular congestion. 3. Suspicion of an early alveolar opacity at the left lung apex. ACT 112: Negative or not required by law. Electronically signed by: Mikel Travis M.D. 06/03/2022 10:24 AM
--- NOTE | 2022-06-03 11:09 | Cardiology Progress Note ---
Date of Service June 03, 2022 Assessment & Plan (1) Atrial fibrillation with rapid ventricular response: (2) Elevated troponin: (3) Hypertension: (4) Cardiomyopathy: Plan: 1. Atrial fibrillation: Still with rapid rates. We have not had time to increase her medical therapy due to her episode of hypotension yesterday. Possibly related to verapamil which is a poor choice in the setting of her newly developed cardiomyopathy. We will continue to cautiously titrate her metoprolol. Digoxin has also been added for rate control. I do not think cardiac catheterization is necessary immediately. As such, I think her heparin can be discontinued and we can start oral anticoagulation with Eliquis. 2. Cardiomyopathy: Unknown etiology or duration. Very likely related to her high ventricular rates based on the global LV and element of RV dysfunction. Amazingly, she seems well compensated her lung exam is slightly abnormal with occasional crackles in the left side, but her breathing has been on compromise. She is not appear to have peripheral edema. Start metoprolol succinate. Will continue to monitor her for an opportunity to intensify her medical therapy 3. Elevated troponin: Mild elevation. This is in the setting of a cardiomyopathy and rapid atrial fibrillation. 4. Valvular heart disease: Mild aortic regurgitation and moderate mitral regurgitation. 5. Hypotension: She has some hypotension yesterday associated with some nausea, diaphoresis and relatively low heart rates. This responded to calcium administration and low-dose vasopressors. Possibly related to her verapamil and or metoprolol. Resolved currently. We will proceed cautiously with additional therapies. Admission and Anticipated Discharge Date Admission Date: June 01, 2022 Subjective This morning the patient is feeling well. She did report feeling somewhat nauseated yesterday and more agitated in the afternoon. She states she had so me difficulty getting comfortable or staying still during her period of bradycardia and hypotension. She did not report chest pains. She did not report breathing trouble around that time. Review of Systems Review of Systems: Per HPI Physical Exam Physical Exam: She is alert and oriented x3. Mood affect appear normal. She answered all questions appropriately. HEENT: Sclerae are anicteric. Pupils are equal and reactive to light and accommodation. Extraocular movements were intact. Neuro: Cranial nerves intact Lungs: A few wet crackles in the left lung base. no expiratory wheezing. She has normal respiratory effort without use of accessory muscles. There is normal pulmonary excursion. Cardiac: The rhythm was irregular. S1 and S2 were normal. There are no murmurs on examination. The PMI was not markedly displaced on palpation. Abdomen: The abdomen was soft and nontender. Extremities: Patient has bilateral radial pulses that are equal in intensity. There is no evidence cyanosis or clubbing. There was no evidence of significant peripheral edema bilaterally. Skin: There are no rashes noted on examination today. Results & Data ([facility]) Vital Signs (Past 12 Hours) Vital Signs Temp Pulse Resp BP Pulse Ox Pulse Ox 06/03/22 09:00 37.8 C H 108 H 30 H 137/93 95 06/03/22 08:38 140 H 06/03/22 08:37 37.8 C H 137 H 27 H 127/95 92 06/03/22 08:36 140 H 127/95 06/03/22 08:00 37.8 C H 122 H 27 H 123/84 97 92 06/03/22 07:00 37.8 C H 113 H 25 H 122/93 96 06/03/22 06:00 37.6 C H 99 H 20 123/84 94 06/03/22 05:54 37.1 C 103 H 18 118/77 95 06/03/22 05:00 37.6 C H 112 H 29 H 95/75 L 91 06/03/22 04:30 37.5 C 92 H 19 111/74 94 06/03/22 04:00 37.5 C 88 19 120/69 93 06/03/22 03:37 37.4 C 112 H 22 110/69 92 06/03/22 03:00 37.4 C 78 20 113/80 96 06/03/22 02:30 37.4 C 76 18 104/70 95 06/03/22 02:00 37.4 C 79 24 117/69 95 06/03/22 01:00 37.5 C 83 20 119/72 95 06/03/22 00:30 37.6 C H 78 21 127/98 95 06/03/22 00:00 37.6 C H 70 20 110/68 96 06/02/22 23:45 37.6 C H 79 21 111/67 97 06/02/22 23:15 37.4 C 83 22 123/88 95 Laboratory Results Abnormal Lab Results 06/02/22 06/02/22 06/02/22 12:26 16:22 16:59 WBC RBC Hgb Hct MCV MCH MCHC RDW Std Deviation RDW Coeff of Елена Plt Count MPV Immature Gran % (Auto) Neut % (Auto) Lymph % (Auto) [place] % (Auto) Eos % (Auto) Baso % (Auto) Neut # (Auto) Lymph # (Auto) [place] # (Auto) Eos # (Auto) Baso # (Auto) Immature Gran # (Auto) Absolute Nucleated RBC Nucleated RBC % (auto) Polychromasia Poikilocytosis Echinocytes Acanthocytes (Spur) PT INR APTT 57.2 H* PTT Ratio 2.1 VBG pH VBG pCO2 VBG pO2 VBG HCO3 VBG O2 Saturation VBG Base Excess Sodium Potassium Chloride Carbon Dioxide Anion Gap BUN Creatinine Est Cr Clr Drug Dosing Est GFR ( Amer) Est GFR (Non-Af Amer) BUN/Creatinine Ratio Glucose POC Glucose 247 H Lactate Calcium Phosphorus Magnesium Troponin I High Sens 65.9 H* D B-Natriuretic Peptide Albumin Procalcitonin Urine Color Urine Appearance Urine pH Ur Specific [place] Urine Protein Urine Glucose (UA) Urine Ketones Urine Blood Urine Nitrite Urine Bilirubin Urine Urobilinogen Ur Leukocyte Esterase Urine WBC (Auto) Urine RBC (Auto) U Hyaline Cast (Auto) U Epithel Cells (Auto) Urine Bacteria (Auto) Nasal Screen MRSA (PCR) 06/02/22 06/02/22 06/02/22 17:33 17:35 18:18 WBC 13.88 H RBC 4.33 Hgb 12.9 Hct 41.7 MCV 96.3 D MCH 29.8 MCHC 30.9 L RDW Std Deviation 53.8 H RDW Coeff of Елена 15.0 H Plt Count 281 MPV 11.0 Immature Gran % (Auto) 1.3 Neut % (Auto) 72.4 Lymph % (Auto) 18.9 [place] % (Auto) 6.9 Eos % (Auto) 0.1 Baso % (Auto) 0.4 Neut # (Auto) 10.04 H Lymph # (Auto) 2.63 [place] # (Auto) 0.96 H Eos # (Auto) 0.02 Baso # (Auto) 0.05 Immature Gran # (Auto) 0.18 H Absolute Nucleated RBC 0.02 H Nucleated RBC % (auto) 0.1 Polychromasia 1+ Poikilocytosis Present Echinocytes 1+ Acanthocytes (Spur) 2+ PT INR APTT PTT Ratio VBG pH VBG pCO2 VBG pO2 VBG HCO3 VBG O2 Saturation VBG Base Excess Sodium 138 Potassium 4.6 Chloride 107 Carbon Dioxide 17 L Anion Gap 14 H BUN 32 H Creatinine 1.39 H D Est Cr Clr Drug Dosing 41.3 Est GFR ( Amer) 43.8 Est GFR (Non-Af Amer) 37.8 BUN/Creatinine Ratio 23.0 H Glucose 227 H POC Glucose Lactate Calcium 8.1 L Phosphorus Magnesium 2.5 H Troponin I High Sens 60.1 H* B-Natriuretic Peptide 1489 H Albumin Procalcitonin Urine Color Urine Appearance Urine pH Ur Specific [place] Urine Protein Urine Glucose (UA) Urine Ketones Urine Blood Urine Nitrite Urine Bilirubin Urine Urobilinogen Ur Leukocyte Esterase Urine WBC (Auto) Urine RBC (Auto) U Hyaline Cast (Auto) U Epithel Cells (Auto) Urine Bacteria (Auto) Nasal Screen MRSA (PCR) 06/02/22 06/02/22 06/02/22 18:18 18:18 18:18 WBC RBC Hgb Hct MCV MCH MCHC RDW Std Deviation RDW Coeff of Елена Plt Count MPV Immature Gran % (Auto) Neut % (Auto) Lymph % (Auto) [place] % (Auto) Eos % (Auto) Baso % (Auto) Neut # (Auto) Lymph # (Auto) [place] # (Auto) Eos # (Auto) Baso # (Auto) Immature Gran # (Auto) Absolute Nucleated RBC Nucleated RBC % (auto) Polychromasia Poikilocytosis Echinocytes Acanthocytes (Spur) PT Cancelled INR Cancelled APTT Cancelled PTT Ratio Cancelled VBG pH 7.09 L VBG pCO2 40 VBG pO2 17 VBG HCO3 12 VBG O2 Saturation < 60.0 VBG Base Excess -17.1 Sodium Potassium Chloride Carbon Dioxide Anion Gap BUN Creatinine Est Cr Clr Drug Dosing Est GFR ( Amer) Est GFR (Non-Af Amer) BUN/Creatinine Ratio Glucose POC Glucose Lactate 5.1 H* Calcium Phosphorus Magnesium Troponin I High Sens B-Natriuretic Peptide Albumin Procalcitonin Urine Color Urine Appearance Urine pH Ur Specific [place] Urine Protein Urine Glucose (UA) Urine Ketones Urine Blood Urine Nitrite Urine Bilirubin Urine Urobilinogen Ur Leukocyte Esterase Urine WBC (Auto) Urine RBC (Auto) U Hyaline Cast (Auto) U Epithel Cells (Auto) Urine Bacteria (Auto) Nasal Screen MRSA (PCR) 06/02/22 06/02/22 06/02/22 18:19 19:30 20:24 WBC RBC Hgb Hct MCV MCH MCHC RDW Std Deviation RDW Coeff of Елена Plt Count MPV Immature Gran % (Auto) Neut % (Auto) Lymph % (Auto) [place] % (Auto) Eos % (Auto) Baso % (Auto) Neut # (Auto) Lymph # (Auto) [place] # (Auto) Eos # (Auto) Baso # (Auto) Immature Gran # (Auto) Absolute Nucleated RBC Nucleated RBC % (auto) Polychromasia Poikilocytosis Echinocytes Acanthocytes (Spur) PT INR APTT PTT Ratio VBG pH VBG pCO2 VBG pO2 VBG HCO3 VBG O2 Saturation VBG Base Excess Sodium Potassium Chloride Carbon Dioxide Anion Gap BUN Creatinine Est Cr Clr Drug Dosing Est GFR ( Amer) Est GFR (Non-Af Amer) BUN/Creatinine Ratio Glucose POC Glucose Lactate 6.5 H* Calcium Phosphorus Magnesium Troponin I High Sens B-Natriuretic Peptide Albumin Procalcitonin 0.19 Urine Color Urine Appearance Urine pH Ur Specific [place] Urine Protein Urine Glucose (UA) Urine Ketones Urine Blood Urine Nitrite Urine Bilirubin Urine Urobilinogen Ur Leukocyte Esterase Urine WBC (Auto) Urine RBC (Auto) U Hyaline Cast (Auto) U Epithel Cells (Auto) Urine Bacteria (Auto) Nasal Screen MRSA (PCR) Negative 06/02/22 06/02/22 06/02/22 20:24 21:28 23:50 WBC RBC Hgb Hct MCV MCH MCHC RDW Std Deviation RDW Coeff of Елена Plt Count MPV Immature Gran % (Auto) Neut % (Auto) Lymph % (Auto) [place] % (Auto) Eos % (Auto) Baso % (Auto) Neut # (Auto) Lymph # (Auto) [place] # (Auto) Eos # (Auto) Baso # (Auto) Immature Gran # (Auto) Absolute Nucleated RBC Nucleated RBC % (auto) Polychromasia Poikilocytosis Echinocytes Acanthocytes (Spur) PT 14.0 H INR 1.3 H APTT 44.3 H PTT Ratio 1.6 VBG pH VBG pCO2 VBG pO2 VBG HCO3 VBG O2 Saturation VBG Base Excess Sodium Potassium Chloride Carbon Dioxide Anion Gap BUN Creatinine Est Cr Clr Drug Dosing Est GFR ( Amer) Est GFR (Non-Af Amer) BUN/Creatinine Ratio Glucose POC Glucose 150 H Lactate Calcium Phosphorus Magnesium Troponin I High Sens B-Natriuretic Peptide Albumin Procalcitonin Urine Color [place] Urine Appearance Cloudy A Urine pH 5.0 Ur Specific [place] > 1.060 H Urine Protein 1+ H Urine Glucose (UA) Negative Urine Ketones Negative Urine Blood 3+ H Urine Nitrite Negative Urine Bilirubin 1+ H Urine Urobilinogen Negative Ur Leukocyte Esterase Trace H Urine WBC (Auto) 10-30 H Urine RBC (Auto) >30 H U Hyaline Cast (Auto) Not Reportable U Epithel Cells (Auto) >30 H Urine Bacteria (Auto) Negative Nasal Screen MRSA (PCR) 06/03/22 06/03/22 06/03/22 00:19 00:19 00:19 WBC RBC Hgb Hct MCV MCH MCHC RDW Std Deviation RDW Coeff of Елена Plt Count MPV Immature Gran % (Auto) Neut % (Auto) Lymph % (Auto) [place] % (Auto) Eos % (Auto) Baso % (Auto) Neut # (Auto) Lymph # (Auto) [place] # (Auto) Eos # (Auto) Baso # (Auto) Immature Gran # (Auto) Absolute Nucleated RBC Nucleated RBC % (auto) Polychromasia Poikilocytosis Echinocytes Acanthocytes (Spur) PT INR APTT PTT Ratio VBG pH 7.29 L VBG pCO2 VBG pO2 VBG HCO3 VBG O2 Saturation VBG Base Excess Sodium 139 Potassium 4.9 Chloride 109 H Carbon Dioxide 19 L Anion Gap 11 BUN 33 H Creatinine 1.20 Est Cr Clr Drug Dosing 47.9 Est GFR ( Amer) 52.3 Est GFR (Non-Af Amer) 45.1 BUN/Creatinine Ratio 27.5 H Glucose 147 H POC Glucose Lactate 4.1 H* Calcium 9.1 Phosphorus 4.7 Magnesium 2.4 Troponin I High Sens B-Natriuretic Peptide Albumin Procalcitonin Urine Color Urine Appearance Urine pH Ur Specific [place] Urine Protein Urine Glucose (UA) Urine Ketones Urine Blood Urine Nitrite Urine Bilirubin Urine Urobilinogen Ur Leukocyte Esterase Urine WBC (Auto) Urine RBC (Auto) U Hyaline Cast (Auto) U Epithel Cells (Auto) Urine Bacteria (Auto) Nasal Screen MRSA (PCR) 06/03/22 06/03/22 06/03/22 03:21 03:21 03:21 WBC 13.82 H RBC 4.36 Hgb 12.9 Hct 40.4 MCV 92.7 MCH 29.6 MCHC 31.9 L RDW Std Deviation 50.7 H RDW Coeff of Елена 14.9 H Plt Count 201 MPV 10.9 Immature Gran % (Auto) 1.0 Neut % (Auto) 77.1 Lymph % (Auto) 13.6 [place] % (Auto) 8.1 Eos % (Auto) 0.0 Baso % (Auto) 0.2 Neut # (Auto) 10.65 H Lymph # (Auto) 1.88 [place] # (Auto) 1.12 H Eos # (Auto) 0.00 Baso # (Auto) 0.03 Immature Gran # (Auto) 0.14 H Absolute Nucleated RBC 0.02 H Nucleated RBC % (auto) 0.1 Polychromasia Poikilocytosis Echinocytes Acanthocytes (Spur) PT INR APTT 58.6 H* PTT Ratio 2.1 VBG pH VBG pCO2 VBG pO2 VBG HCO3 VBG O2 Saturation VBG Base Excess Sodium 137 Potassium 4.5 Chloride 108 H Carbon Dioxide 20 L Anion Gap 9 BUN 34 H Creatinine 1.09 Est Cr Clr Drug Dosing 52.7 Est GFR ( Amer) 58.7 Est GFR (Non-Af Amer) 50.7 BUN/Creatinine Ratio 31.2 H Glucose 128 H POC Glucose Lactate Calcium 8.5 Phosphorus 4.2 Magnesium 2.4 Troponin I High Sens B-Natriuretic Peptide Albumin 3.3 L Procalcitonin Urine Color Urine Appearance Urine pH Ur Specific [place] Urine Protein Urine Glucose (UA) Urine Ketones Urine Blood Urine Nitrite Urine Bilirubin Urine Urobilinogen Ur Leukocyte Esterase Urine WBC (Auto) Urine RBC (Auto) U Hyaline Cast (Auto) U Epithel Cells (Auto) Urine Bacteria (Auto) Nasal Screen MRSA (PCR) 06/03/22 06/03/22 03:21 03:21 WBC RBC Hgb Hct MCV MCH MCHC RDW Std Deviation RDW Coeff of Елена Plt Count MPV Immature Gran % (Auto) Neut % (Auto) Lymph % (Auto) [place] % (Auto) Eos % (Auto) Baso % (Auto) Neut # (Auto) Lymph # (Auto) [place] # (Auto) Eos # (Auto) Baso # (Auto) Immature Gran # (Auto) Absolute Nucleated RBC Nucleated RBC % (auto) Polychromasia Poikilocytosis Echinocytes Acanthocytes (Spur) PT INR APTT PTT Ratio VBG pH VBG pCO2 VBG pO2 VBG HCO3 VBG O2 Saturation VBG Base Excess Sodium Potassium Chloride Carbon Dioxide Anion Gap BUN Creatinine Est Cr Clr Drug Dosing Est GFR ( Amer) Est GFR (Non-Af Amer) BUN/Creatinine Ratio Glucose POC Glucose Lactate 2.2 H* Calcium Phosphorus Magnesium Troponin I High Sens B-Natriuretic Peptide Albumin Procalcitonin 0.31 Urine Color Urine Appearance Urine pH Ur Specific [place] Urine Protein Urine Glucose (UA) Urine Ketones Urine Blood Urine Nitrite Urine Bilirubin Urine Urobilinogen Ur Leukocyte Esterase Urine WBC (Auto) Urine RBC (Auto) U Hyaline Cast (Auto) U Epithel Cells (Auto) Urine Bacteria (Auto) Nasal Screen MRSA (PCR) PG Care Time/CCT Total # of Minutes Spent Total Time Spent with Patient: Total time spent is greater than 50% in coordination of care (as documented) at patient's floor/unit and/or counseling patient: Coding Level of Care Code 85371 Subseq Hosp Care Lvl 2 Diagnoses Atrial fibrillation with rapid ventricular response I48.91 Elevated troponin R77.8 Hypertension I10 Cardiomyopathy I42.9
[2022-06-03] MEDS: METOPROLOL TARTRATE 25 MG TAB PO SCH ×2 (12:02→17:49)
--- NOTE | 2022-06-03 12:08 | Electrocardiogram Report ---
Test Reason : Blood Pressure : / mmHG Vent. Rate : 072 BPM Atrial Rate : 089 BPM P-R Int : 000 ms QRS Dur : 084 ms QT Int : 510 ms P-R-T Axes : 000 055 214 degrees QTc Int : 558 ms Atrial fibrillation with premature ventricular or aberrantly conducted complexes Low voltage QRS Prolonged QT Abnormal ECG When compared with ECG of 02-JUN-2022 06:12, Vent. rate has decreased BY 68 BPM T wave inversion more evident in Anterolateral leads Confirmed by Bola Arora ([id number]) on 06/03/2022 12:08:35 PM Referred By: REFERRED SELF Confirmed By:Flex Arora
--- NOTE | 2022-06-03 12:10 | Electrocardiogram Report ---
Test Reason : Blood Pressure : / mmHG Vent. Rate : 063 BPM Atrial Rate : 060 BPM P-R Int : 000 ms QRS Dur : 082 ms QT Int : 536 ms P-R-T Axes : 000 086 188 degrees QTc Int : 548 ms Atrial fibrillation Low voltage QRS T wave abnormality, consider inferior ischemia T wave abnormality, consider anterolateral ischemia Prolonged QT Abnormal ECG When compared with ECG of 02-JUN-2022 17:18, (unconfirmed) T wave inversion less evident in Anterior leads Confirmed by Bola Arora ([id number]) on 06/03/2022 12:10:15 PM Referred By: REFERRED SELF Confirmed By:Flex Arora
--- NOTE | 2022-06-03 12:18 | Electrocardiogram Report ---
Test Reason : Blood Pressure : / mmHG Vent. Rate : 104 BPM Atrial Rate : 104 BPM P-R Int : 000 ms QRS Dur : 082 ms QT Int : 344 ms P-R-T Axes : 000 048 227 degrees QTc Int : 452 ms Atrial fibrillation with rapid ventricular response Low voltage QRS Abnormal ECG When compared with ECG of 02-JUN-2022 18:20, (unconfirmed) Vent. rate has increased BY 41 BPM T wave inversion less evident in Lateral leads QT has shortened Confirmed by Bola Arora ([id number]) on 06/03/2022 12:18:11 PM Referred By: REFERRED SELF Confirmed By:Flex Arora
[2022-06-03] MEDS ORDERED: DIGOXIN 250 MCG in SYRINGE 9 ML IV ONE ×2 (14:30→21:00)
--- NOTE | 2022-06-03 18:10 | Ultrasound Report ---
US abdomen limited CLINICAL HISTORY: R/O cholecystitis TECHNIQUE: Multiple real-time sonographic images of the right upper quadrant were obtained. Comparison: None available at the time of this dictation. FINDINGS: Partial visualization of a right pleural effusion. The liver is diffusely homogenous with normal contour and echogenicity. No focal mass lesions are se en. No intrahepatic ductal dilatation is seen. No gallstones or sludge are identified within the gallbladder. The gallbladder wall is not thickened. There is no pericholecystic fluid present. A sono graphic Jean-Baptiste's sign was not elicited by the kennel operator. The common duct measures 0.[address] at the level of the hepatic artery. The visualized portions of the pancreas appear normal. Right kidney measures 8.5 cm. No hydronephrosis is seen. No ascites or free fluid is seen in Hoffmann's pouch. IMPRESSION: 1. No evidence of cholecystitis. 2. Right pleural effusion is partially visualized. ACT 112: Negative or not required by law. Electronically signed by: Joaquim Payan M.D. 06/03/2022 6:08 PM
[2022-06-03] MEDS: ATORVASTATIN 20 MG TAB PO SCH (20:09)
[2022-06-03] MEDS: APIXABAN 5 MG TABLET PO SCH (20:10)
[2022-06-03] MEDS: ACETAMINOPHEN 325 MG TAB PO PRN (20:23)
[2022-06-03] MEDS ORDERED: STOP HEPARIN DRIP ORDER ONE (21:15)
[2022-06-04] MEDS: METOPROLOL TARTRATE 25 MG TAB PO SCH ×2 (00:02→05:36)
[2022-06-04] MEDS: LEVOTHYROXINE SODIUM 75 MCG TABLET PO SCH (05:36)
[2022-06-04 05:53] LABS: Basophils # (auto) 0.05 K/uL (0-0.2); Basophils % (auto) 0.4 %; Eosinophils # (auto) 0.21 K/uL (0-0.50); Eosinophils % (auto) 1.9 %; Hematocrit (blood only) 39.3 % (34.1-44.9); Hemoglobin 12.7 g/dl (12.0-16.0); Immature Granulocytes # (auto) 0.06 K/uL (0.00-0.02); Immature Granulocytes % (auto) 0.5 %; Lymphocytes # (auto) 2.17 K/uL (1.2-3.4); Lymphocytes % (auto) 19.3 %; Mean Corpuscular Hemoglobin 29.6 pg (25.0-34.0); Mean Corpuscular Hgb Conc 32.3 g/dL (32.0-36.0); Mean Corpuscular Volume 91.6 fL (80.0-100.0); Mean Platelet Volume 10.5 fL (9.4-12.3); Monocytes # (auto) 0.72 K/uL (0.24-0.82); Monocytes % (auto) 6.4 %; Neutrophils # (auto) 8.02 K/uL (1.4-6.5); Neutrophils % (auto) 71.5 %; Platelet Count 175 K/uL (130-400); RDW Coefficient of Variation 14.6 % (11.5-14.5); RDW Standard Deviation 48.3 fL (36.4-46.3); Red Blood Count 4.29 M/uL (3.93-5.22); White Blood Count 11.23 K/ul (4.8-10.8)
[2022-06-04 06:03] LABS: Partial Thromboplastin Ratio 0.8; Partial Thromboplastin Time 21.8 Seconds (21.0-31.0)
[2022-06-04 06:23] LABS: Albumin Level 3.1 gm/dl (3.4-5.0); BUN Creatinine Ratio 39.3 (10-20); Calcium 7.8 mg/dl (8.5-10.1); Creatinine Clr Calc Pharmacy 64.5 ml/min; Est GFR (Non-African American) 64.7 ml/min; Magnesium 2.2 mg/dl (1.7-2.4); Phosphorus 3.4 mg/dl (2.5-4.9); Potassium 4.5 mmol/L (3.5-5.1)
--- NOTE | 2022-06-04 08:22 | XRay Report ---
XR chest 1V portable CLINICAL HISTORY: ICU Status/fluid overload. Follow-up bilateral pleural effusions with bibasilar a telectasis/collapse and mild central vascular congestion COMPARISON STUDY: 06/03/2022 TECHNIQUE: 1 view of the chest FINDINGS: Single frontal view of the chest demonstrates the heart to again be enlarged. Compared to previous ex amination, there is again evidence for bilateral pleural effusions , right greater than left with bib asilar atelectasis/collapse , right greater than left. Previously suspected early left upper lobe maxwell eolar opacity is not seen. There is mild central vascular congestion is present. There is no acute os seous pathology. IMPRESSION: 1. Compared to previous examination, there is again evidence for bilateral pleural effusions and biba silar atelectasis/collapse, right greater than left. 2. Very mild central vascular congestion is again seen. 3. No evidence for left upper lobe alveolar opacity on the current study. ACT 112: Negative or not required by law. Electronically signed by: Mikel Travis M.D. 06/04/2022 8:21 AM
[2022-06-04] MEDS: MAGNESIUM OXIDE 400 MG TAB PO SCH ×2 (08:40→20:51)
[2022-06-04] MEDS: ASPIRIN 81 MG ECTAB PO SCH (08:40)
[2022-06-04] MEDS: APIXABAN 5 MG TABLET PO SCH ×2 (08:40→20:50)
[2022-06-04] MEDS: POTASSIUM CHLORIDE CRTAB 20 MEQ TABCR PO SCH (08:40)
--- NOTE | 2022-06-04 11:37 | Hospitalist Progress Note ---
Date of Service June 04, 2022 Assessment & Plan (1) Atrial fibrillation with rapid ventricular response: Plan: Patient has not been taking her metoprolol succinate for up to a year possibly. Echo showed EF 15 to 20%; likely tachycardia-inducued. - Cardiology consulted. - Switch to Toprol XL 50 mg PO daily (rates well-controlled this AM at 70-80 bpm) - Continue apixaban - Patient will need LifeVest on discharge and follow-up in 4 to 6 weeks with cardiology (2) Elevated troponin: Plan: This is currently trending down at this time. No chest pain or tightness. Cardiology on board and doubts that this is an acute ND. - No plans for cardiac catheterization at this time (3) Cardiomyopathy: Plan: New diagnosis. EF 15 - 20% as above. - LifeVest on discharge. (4) Hypertension: Plan: BP is 150/80 today. - Continue Toprol as above - Continue to monitor on telemetry and follow vital signs per protocol (5) Hypercholesterolemia: Plan: - Continue atorvastatin 20 mg (6) Stas's thyroiditis: Plan: Stas's thyroiditis/hypothyroidism- - Continue levothyroxine 75 mcg p.o. daily - TSH mildly elevated at 9.749, which can be addressed by her PCP after discharge (7) Hypothyroidism (acquired): Plan: Follow-up in 4 to 6 weeks with PCP for adjustment of levothyroxine as needed Admission and Anticipated Discharge Date Admission Date: June 01, 2022 Physical Exam Constitutional: WD/WN, vitals as above Eyes: EOM intact bilaterally; no conjunctival abnormality ENMT: external ear and nose normal, oropharynx normal Neck: trachea midline, no thyromegaly normal visual inspection Respiratory: normal respiratory effort, lungs clear to auscultation no respiratory distress Cardiovascular: Rate/Rhythm: regular rate and + irregularly irregular Extremities: no edema Gastrointestinal (Abdomen): Inspection/Auscultation: abdomen normal to inspec tion; abdomen not distended Musculoskeletal: no cyanosis or clubbing, extremities motor strength 5/5 Skin: no rashes, warm and dry Neurologic: moves all extremities and awake Psychiatric: Orientation: alert, oriented to person and cooperative Results & Data Results & Data ([facility]) Vital Signs (Past 12 Hours) Vital Signs Temp Pulse Pulse Resp BP Pulse Ox Pulse Ox 06/04/22 11:00 36.5 C 74 25 H 147/79 H 94 06/04/22 08:00 36.4 C L 74 68 20 150/82 H 92 92 06/04/22 05:34 65 147/72 H 06/04/22 03:35 37 C 63 16 140/77 94 06/04/22 00:01 37.4 C 81 24 138/67 93 PG Care Time/CCT Total # of Minutes Spent Total Time Spent with Patient: Total time spent is greater than 50% in coordination of care (as documented) at patient's floor/unit and/or counseling patient: Coding Level of Care Code 66545 Subseq Hosp Care Lvl 2 Diagnoses Atrial fibrillation with rapid ventricular response I48.91 Elevated troponin R77.8 Hypertension I10 Hypercholesterolemia E78.00 Stas's thyroiditis E06.3 Hypothyroidism (acquired) E03.9 Cardiomyopathy I42.9
[2022-06-04] MEDS: METOPROLOL SUCC 50MG EXT REL TAB PO SCH (12:16)
--- NOTE | 2022-06-04 12:51 | Cardiology Progress Note ---
Date of Service June 04, 2022 Assessment & Plan (1) Atrial fibrillation with rapid ventricular response: Plan: -rate now adequately controlled on metoprolol tartrate. -agree with addition of Eliquis. -suspect this is the cause of her cardiomyopathy. (2) Elevated troponin: Plan: -likely secondary to her atrial fibrillation and rapid ventricular response. -doubt coronary ischemia. (3) Cardiomyopathy: Plan: -suspect this is secondary to atrial fibrillation and rapid ventricular response. -continue metoprolol tartrate. -could consider use of an ACEI or ARB. -recheck echocardiogram in 1-2 months as an outpatient. (4) Hypertension: Plan: -adequate control on current regimen. Admission and Anticipated Discharge Date Admission Date: June 01, 2022 Subjective The patient is seated at bedside chair without complaints of chest pain, dyspnea, or palpitations. Results & Data ([facility]) Vital Signs (Past 12 Hours) Vital Signs Temp Pulse Pulse Resp BP Pulse Ox Pulse Ox 06/04/22 11:00 36.5 C 74 25 H 147/79 H 94 06/04/22 08:00 36.4 C L 74 68 20 150/82 H 92 92 06/04/22 05:34 65 147/72 H 06/04/22 03:35 37 C 63 16 140/77 94 Diagnostic Findings edgerman notes rate controlled atrial fibrillation. PG Care Time/CCT Total # of Minutes Spent Total Time Spent with Patient: Total time spent is greater than 50% in coordination of care (as documented) at patient's floor/unit and/or counseling patient: Coding Level of Care Code 66678 Subseq Hosp Care Lvl 3 Diagnoses Atrial fibrillation with rapid ventricular response I48.91 Elevated troponin R77.8 Hypertension I10 Cardiomyopathy I42.9
[2022-06-04] MEDS: ATORVASTATIN 20 MG TAB PO SCH (20:51)
[2022-06-05] MEDS: LEVOTHYROXINE SODIUM 75 MCG TABLET PO SCH (05:31)
[2022-06-05 06:10] LABS: Hematocrit (blood only) 40.3 % (34.1-44.9); Hemoglobin 13.4 g/dl (12.0-16.0); Mean Corpuscular Hemoglobin 29.6 pg (25.0-34.0); Mean Corpuscular Hgb Conc 33.3 g/dL (32.0-36.0); Mean Corpuscular Volume 89.2 fL (80.0-100.0); Mean Platelet Volume 10.5 fL (9.4-12.3); Platelet Count 193 K/uL (130-400); RDW Coefficient of Variation 14.3 % (11.5-14.5); RDW Standard Deviation 45.7 fL (36.4-46.3); Red Blood Count 4.52 M/uL (3.93-5.22); White Blood Count 8.72 K/ul (4.8-10.8)
[2022-06-05 06:25] LABS: BUN Creatinine Ratio 28.6 (10-20); Est GFR (African American) 89.4 ml/min; Est GFR (Non-African American) 77.1 ml/min; Magnesium 2.1 mg/dl (1.7-2.4); Potassium 4.1 mmol/L (3.5-5.1)
[2022-06-05] MEDS: APIXABAN 5 MG TABLET PO SCH ×2 (08:12→20:25)
[2022-06-05] MEDS: MAGNESIUM OXIDE 400 MG TAB PO SCH ×2 (08:12→20:25)
[2022-06-05] MEDS: METOPROLOL SUCC 50MG EXT REL TAB PO SCH (08:13)
[2022-06-05] MEDS: ASPIRIN 81 MG ECTAB PO SCH (09:09)
--- NOTE | 2022-06-05 12:09 | Electrocardiogram Report ---
Test Reason : Blood Pressure : / mmHG Vent. Rate : 093 BPM Atrial Rate : 138 BPM P-R Int : 000 ms QRS Dur : 084 ms QT Int : 382 ms P-R-T Axes : 000 052 220 degrees QTc Int : 474 ms Poor data quality, interpretation may be adversely affected Atrial fibrillation Prolonged QT Abnormal ECG When compared with ECG of 03-JUN-2022 05:24, No significant change was found Confirmed by Bola Arora ([id number]) on 06/05/2022 12:09:21 PM Referred By: REFERRED SELF Confirmed By:Flex Arora
--- NOTE | 2022-06-05 12:50 | Cardiology Progress Note ---
Date of Service June 05, 2022 Assessment & Plan (1) Atrial fibrillation with rapid ventricular response: Plan: -rate now adequately controlled on metoprolol tartrate. -continue Eliquis. -suspect this is the cause of her cardiomyopathy. (2) Elevated troponin: Plan: -likely a supply demand mismatch (atrial fibrillation with a rapid ventricular response). -doubt coronary ischemia. (3) Cardiomyopathy: Plan: -suspect this is secondary to atrial fibrillation and rapid ventricular response. -continue metoprolol succinate. -could consider use of an ACEI or ARB. -recheck echocardiogram in 1-2 months as an outpatient. (4) Hypertension: Plan: -adequate control on current regimen. Admission and Anticipated Discharge Date Admission Date: June 01, 2022 Subjective The patient is resting comfortably in bed without complaints of chest pain, dyspnea, or palpitations. Physical Exam Physical Exam: In general is well-developed well-nourished white female no acute distress. HEENT exam is negative. Neck is supple with full carotid upstrokes. No carotid bruits. Jugular is pressure is flat at 90. There is no thyromegaly. Cardiovascular exam reveals irregular irregular rhythm with distant heart sounds. No obvious murmurs. Lungs are clear without rales, rhonchi or wheeze. Abdomen is soft without bruits extremities reveal intact radial artery pulses bilaterally. There is trace pretibial edema. Results & Data ([facility]) Vital Signs (Past 12 Hours) Vital Signs Temp Pulse Pulse Resp BP Pulse Ox 06/05/22 11:31 37.1 C 59 L 16 137/82 93 06/05/22 09:10 36.9 C 99 H 18 122/62 94 06/05/22 07:39 36.7 C 97 H 16 181/84 H 96 06/05/22 07:18 90 06/05/22 05:11 160/70 H 06/05/22 04:20 36.4 C L 110 H 20 170/90 H 97 Diagnostic Findings monitor technician notes rate controlled atrial fibrillation. PG Care Time/CCT Total # of Minutes Spent Total Time Spent with Patient: Total time spent is greater than 50% in coordination of care (as documented) at patient's floor/unit and/or counseling patient: Coding Level of Care Code 80507 Subseq Hosp Care Lvl 3 Diagnoses Atrial fibrillation with rapid ventricular response I48.91 Elevated troponin R77.8 Cardiomyopathy I42.9 Hypertension I10
--- NOTE | 2022-06-05 15:45 | Hospitalist Progress Note ---
Date of Service June 05, 2022 Assessment & Plan (1) Atrial fibrillation with rapid ventricular response: Plan: Patient has not been taking her metoprolol succinate for up to a year possibly. Echo showed EF 15 to 20%; likely tachycardia-inducued. - Cardiology consulted. - started Toprol XL 50 mg PO daily (rates remain well-controlled this AM at 70- 80 bpm) - Continue apixaban-lester checked with CM and is affordable for her -Will need follow-up with cardiology as an outpatient (2) Cardiomyopathy: Plan: New diagnosis. EF 15 - 20% as above likely tachy induced CM, nonischemic - - Does NOT need a Life Vest as per my d/w Cardiology today. Expect her EF to improve with rate control -f/u with Cardiology as outpt and repeat ECHO in 1-2 months -continue Toprol XL and add lisinopril 5mg po daily not volume overloaded, no diuretics needed (3) HFrEF (heart failure with reduced ejection fraction): Plan: as above Discontinued home verapamil (4) Rosacea: Plan: breakout on face, triggered by warm air in room she says -start 7 day course of doxycycline 50mg and start Metrogel bid (5) Hypertension: Plan: BP mildly elevated now but was hypotensive requiring Levophed in the beginning of her hospitalization verapamil from home stopped due to hypotension and is contraindicated with severely reduced EF - Continue Toprol as above -add lisinopril 5mg po daily for cardiomyopathy and watch blood pressure - Continue to monitor on telemetry and follow vital signs per protocol (6) Hypercholesterolemia: Plan: - Continue atorvastatin 20 mg (7) Elevated troponin: Plan: Myocardial infarction type 2 in setting of hypoxia and hypotension troponin trended down at this time. No chest pain or tightness. Cardiology on board and doubts that this is an acute TX. - No plans for cardiac catheterization at this time (8) Stas's thyroiditis: Plan: Sats's thyroiditis/hypothyroidism- - Continue levothyroxine 75 mcg p.o. daily - TSH mildly elevated at 9.749, agree as she has not been taking her levothyroxine for quite some time -Follow TSH as an outpatient in 4 to 6 weeks (9) Hypothyroidism (acquired): Plan: Follow-up in 4 to 6 weeks with PCP for adjustment of levothyroxine as needed (10) Acute encephalopathy: Plan: Metabolic encephalopathy in setting of hypoxia and hypotension Now resolved Plan: DVT prophylaxis-Eliquis Disposition-continued stay overnight and likely discharge to home tomorrow Admission and Anticipated Discharge Date Admission Date: June 01, 2022 Anticipated date of discharge: 06/06/22 Subjective Patient feeling better today but does not feel ready to go home yet. Denies shortness of breath but does complain of significant leg fatigue with walking in the halls with physical therapy. No chest pain. Patient also complaining that her rosacea has flared up on her face since being in the hospital with a rash all over that is not itchy. She has no rashes anywhere else on her body and says that this rash is typical when she is around hot air. Telemetry with atrial fibrillation and PVCs with rates in the 80s to 140s with exertion. I did discuss her case with the concrete stone finisher. Review of Systems Review of Systems: All systems reviewed & are unremarkable except as noted in HPI & below No issues with constipation or diarrhea Physical Exam Constitutional: WD/WN, vitals as above Eyes: PERRL, conjunctivae normal, anicteric sclerae ENMT: external ear and nose normal, oropharynx normal Neck: trachea midline, no thyromegaly Respiratory: normal respiratory effort, lungs clear to auscultation Cardiovascular: Rate/Rhythm: regular rate and + irregularly irregular Heart Sounds: no murmur Extremities: no edema Chest (Breasts): Chest: normal inspection of chest Gastrointestinal (Abdomen): normal bowel sounds, soft, nontender, no hepatosplenomegaly Musculoskeletal: Extremities: extremities normal to inspection; no cyanosis and no clubbing Skin: + rash (Face with erythematous maculopapular rash on cheeks and nose) Neurologic: moves all extremities and awake; no focal motor deficits Psychiatric: A+Ox3, euthymic affect Lymphatic: no lymphedema Results & Data Results & Data ([facility]) Vital Signs (Past 12 Hours) Vital Signs Temp Pulse Pulse Resp BP Pulse Ox Pulse Ox 06/05/22 15:00 36.8 C 104 H 16 149/76 H 95 06/05/22 14:20 86 06/05/22 11:31 37.1 C 59 L 16 137/82 93 06/05/22 09:10 36.9 C 99 H 18 122/62 94 06/05/22 08:00 94 06/05/22 07:39 36.7 C 97 H 16 181/84 H 96 06/05/22 07:18 90 06/05/22 05:11 160/70 H 06/05/22 04:20 36.4 C L 110 H 20 170/90 H 97 Laboratory Results 06/05/22 06/05/22 Range/Units 05:47 05:47 WBC 8.72 (4.8-10.8) K/ul RBC 4.52 (3.93-5.22) M/uL Hgb 13.4 (12.0-16.0) g/dl Hct 40.3 (34.1-44.9) % MCV 89.2 (80.0-100.0) fL MCH 29.6 (25.0-34.0) pg MCHC 33.3 (32.0-36.0) g/dL RDW Std Deviation 45.7 (36.4-46.3) fL RDW Coeff of Елена 14.3 (11.5-14.5) % Plt Count 193 (130-400) K/uL MPV 10.5 (9.4-12.3) fL Sodium 137 (136-145) mmol/L Potassium 4.1 (3.5-5.1) mmol/L Chloride 105 (98-107) mmol/L Carbon Dioxide 26 (21-32) mmol/L Anion Gap 6 (3-11) BUN 22 (6-23) mg/dl Creatinine 0.77 (0.6-1.2) mg/dl Est Cr Clr Drug Dosing 75.0 ml/min Est GFR ( Amer) 89.4 ml/min Est GFR (Non-Af Amer) 77.1 ml/min BUN/Creatinine Ratio 28.6 H (10-20) Glucose 98 (70-99(Fasting)) mg/dl Calcium 8.0 L (8.5-10.1) mg/dl Magnesium 2.1 (1.7-2.4) mg/dl PG Care Time/CCT Total # of Minutes Spent Total Time Spent with Patient: Total time spent is greater than 50% in coordination of care (as documented) at patient's floor/unit and/or counseling patient: Coding Level of Care Code 50146 Subseq Hosp Care Lvl 3 Diagnoses Atrial fibrillation with rapid ventricular response I48.91 Elevated troponin R77.8 Cardiomyopathy I42.9 Hypertension I10 Hypercholesterolemia E78.00 Stas's thyroiditis E06.3 Hypothyroidism (acquired) E03.9 Rosacea L71.9 HFrEF (heart failure with reduced ejection fraction) I50.20 Acute encephalopathy G93.40
[2022-06-05] MEDS: lisinopril 5 MG TAB PO SCH (16:38)
[2022-06-05] MEDS: metroNIDAZOLE 0.75% TOPICAL GEL 45 GM TUBE TOP SCH (16:38)
[2022-06-05] MEDS: DOXYCYCLINE HYCLATE 50 MG CAP PO SCH (16:38)
[2022-06-05] MEDS: ATORVASTATIN 20 MG TAB PO SCH (20:25)
[2022-06-06] MEDS: LEVOTHYROXINE SODIUM 75 MCG TABLET PO SCH (05:38)
[2022-06-06 06:37] LABS: Basophils # (auto) 0.04 K/uL (0-0.2); Basophils % (auto) 0.4 %; Eosinophils # (auto) 0.25 K/uL (0-0.50); Eosinophils % (auto) 2.8 %; Hematocrit (blood only) 42.9 % (34.1-44.9); Hemoglobin 13.9 g/dl (12.0-16.0); Immature Granulocytes # (auto) 0.07 K/uL (0.00-0.02); Immature Granulocytes % (auto) 0.8 %; Lymphocytes # (auto) 1.81 K/uL (1.2-3.4); Lymphocytes % (auto) 20.3 %; Mean Corpuscular Hemoglobin 29.6 pg (25.0-34.0); Mean Corpuscular Hgb Conc 32.4 g/dL (32.0-36.0); Mean Corpuscular Volume 91.3 fL (80.0-100.0); Mean Platelet Volume 10.6 fL (9.4-12.3); Monocytes # (auto) 0.65 K/uL (0.24-0.82); Monocytes % (auto) 7.3 %; Neutrophils # (auto) 6.11 K/uL (1.4-6.5); Neutrophils % (auto) 68.4 %; Platelet Count 216 K/uL (130-400); RDW Coefficient of Variation 14.6 % (11.5-14.5); RDW Standard Deviation 47.5 fL (36.4-46.3); White Blood Count 8.93 K/ul (4.8-10.8)
[2022-06-06 07:01] LABS: BUN Creatinine Ratio 23.9 (10-20); Calcium 8.1 mg/dl (8.5-10.1); Creatinine Clr Calc Pharmacy 74.9 ml/min; Est GFR (African American) 98.6 ml/min; Est GFR (Non-African American) 85.1 ml/min; Magnesium 2.2 mg/dl (1.7-2.4)
[2022-06-06] MEDS: APIXABAN 5 MG TABLET PO SCH (08:00)
[2022-06-06] MEDS: lisinopril 5 MG TAB PO SCH (08:00)
[2022-06-06] MEDS: METOPROLOL SUCC 50MG EXT REL TAB PO SCH (08:00)
[2022-06-06] MEDS: ASPIRIN 81 MG ECTAB PO SCH (08:00)
[2022-06-06] MEDS: metroNIDAZOLE 0.75% TOPICAL GEL 45 GM TUBE TOP SCH (08:00)
[2022-06-06] MEDS: MAGNESIUM OXIDE 400 MG TAB PO SCH (08:00)
[2022-06-06] MEDS: DOXYCYCLINE HYCLATE 50 MG CAP PO SCH (11:07)
--- NOTE | 2022-06-06 11:24 | Discharge Summary ---
Date of Service June 06, 2022 Admission HPI Per Admitting Provider The patient is a 71-year-old female with a past medical history including hypertension, hypercholesterolemia, Stas's thyroiditis, hypertension, hypokalemia and allergic rhinitis. She had run out of medications a few months ago, and had not taken any until about 1 week ago, when she checked her blood pressure, vitals elevated, and resumed her verapamil dosing at that time. She reports her blood pressure had improved, and she had not noticed any palpitations or increased heart rate. She was found to be in atrial fibrillation with RVR went arrival to the ED, and reports that she did have atrial fibrillation about 11 years ago. She had previously been on Xarelto as well, which had been discontinued a while ago. Principal Diagnosis Rapid atrial fibrillation, Acute HFrEF, nonischemic cardiomyopathy Discharge Exam Constitutional WD/WN, vitals as above Eyes + anicteric sclerae Neck trachea midline, no thyromegaly Respiratory normal respiratory effort, lungs clear to auscultation Cardiovascular Rate/Rhythm: regular rate and + irregularly irregular Heart Sounds: no murmur Extremities: no edema Chest (Breasts) Chest: normal inspection of chest Gastrointestinal (Abdomen) normal bowel sounds, soft, nontender, no hepatosplenomegaly Musculoskeletal Extremities: extremities normal to inspection; no cyanosis and no clubbing Skin + rash (Face with erythematous maculopapular rash on cheeks and nose) Neurologic moves all extremities and awake; no focal motor deficits Psychiatric A+Ox3, euthymic affect Lymphatic no lymphedema Discharge Data Allergies Allergy/AdvReac Type Severity Reaction Status Date / Time aspirin Allergy Unknown CHEST Verified 06/01/22 20:29 TIGHTNESS, RINGING IN EARS Consultations 06/01/22 20:30 ED Decision to Admit Stat 06/02/22 01:15 Consult Cardiology Routine 06/02/22 18:16 Consult Linen Aide Routine Ordered Studies 06/02/22 21:53 CT angio abdomen pelvis w con Urgent CT head/brain wo con Urgent 06/02/22 21:54 CT angio head w con Urgent CT angio neck with con Urgent 06/02/22 21:58 CT angio chest PE protocol Urgent 06/03/22 13:44 US abdomen limited Routine ECHO Hospital Course (1) Atrial fibrillation with rapid ventricular response: Patient has not been taking her metoprolol succinate for up to a year possibly. Echo showed EF 15 to 20%; likely tachycardia-inducued. - Cardiology consulted. - started Toprol XL 50 mg PO daily (rates remain well-controlled now at 70-80 bpm) - Continue apixaban-lester checked with CM and is affordable for her -Will need follow-up with cardiology as an outpatient (2) Cardiomyopathy: New diagnosis. EF 15 - 20% as above likely tachy induced CM, nonischemic - - Does NOT need a Life Vest as per my d/w Cardiology.. Expect her EF to improve with rate control -f/u with Cardiology as outpt and repeat ECHO in 1-2 months -continue Toprol XL and added lisinopril 5mg po daily not volume overloaded, no diuretics needed continue low sodium diet, daily weights at home (3) HFrEF (heart failure with reduced ejection fraction): as above Discontinued home verapamil (4) Rosacea: breakout on face, triggered by warm air in room she says -finish out 7 day course of doxycycline 50mg daily and started Metrogel bid (5) Hypertension: BP was hypotensive requiring Levophed in the beginning of her hospitalization verapamil from home stopped due to hypotension and is contraindicated with severely reduced EF BPs now well controlled - Continue Toprol as above -added lisinopril 5mg po daily for cardiomyopathy and watch blood pressure as an outpt (6) Hypercholesterolemia: - Continue atorvastatin 20 mg (7) Elevated troponin: Myocardial infarction type 2 in setting of hypoxia and hypotension troponin trended down at this time. No chest pain or tightness. Cardiology on board and doubts that this is an acute ND. - No plans for cardiac catheterization at this time (8) Stas's thyroiditis: Stas's thyroiditis/hypothyroidism- - Continue levothyroxine 75 mcg p.o. daily - TSH mildly elevated at 9.749, agree as she has not been taking her levothyroxine for quite some time -Follow TSH as an outpatient in 4 to 6 weeks (9) Hypothyroidism (acquired): Follow-up in 4 to 6 weeks with PCP for adjustment of levothyroxine as needed (10) Acute encephalopathy: Metabolic encephalopathy in setting of hypoxia and hypotension Now resolved Plan DVT prophylaxis-Eliquis Disposition-discharge to home today Total Time Total Time Spent Total Time Spent (In Minutes): 40 min Discharge Plan Discharge Items Patient Disposition: Home - Self-Care Reason For Visit: ATRIAL FIB WITH RVR, ELEVATED TROPONIN Discharge Diagnosis: Rapid atrial fibrillation, Acute systolic CHF, cardiomyopathy Condition on Discharge: Good Activity: As commented below Bathing: No limitations Exercise/Sports: Gradually increase as tolerated Weightbearing: Full weightbearing Non-emergency contact: Primary Care Provider and Toolsmith Call non-emergency contact if: you have any medication questions and your symptoms worsen Follow-up/Referrals: Ky Holm MD [Physician] - (Follow up within 2-3 weeks after discharge) Mj Quinn DO [Physician] - (Please follow up within 7 days after discharge as a new patient hospital follow up.) PCP,NO [Primary Care Provider] - Diet: Heart Healthy and Low Sodium (2gm) Fluids: 1800ml (7 cups) Addtl Attending Provider Instructions: You were admitted for rapid atrial fibrillation and found to have congestive heart failure. You were restarted on your medications to improve your heart and also restarted on your thyroid medication. You are also being started on Eliquis which is a blood thinner to prevent stroke. You will need to follow up with Cardiology and have a repeat echocardiogram in 1-2 months to see if your heart function has improved. Call your Primary Care doctor if any of the following symptoms or problems start or get worse: * Shortness of breath or difficulty breathing * Wake up at night short of breath * Chest pain * Cough * Swelling of your hands, feet, or legs * More fatigued or tired with your normal activity * Palpitations - sudden fast heart beats WEIGHT * Weigh yourself every morning after using the bathroom. * Use the same scale. * Wear the same amount of clothing. * Write your weight down on a chart. * Call your Primary Care doctor if you gain more than 2-3 pounds in 1-2 days. MEDICATIONS * Use this discharge instruction sheet for medication instructions. * Take your medications at the time your doctor ordered. * Do not skip a dose of your medicines. * If you miss a dose of medicine, take it as soon as possible, but DO NOT DOUBLE A DOSE. * Read your medicine information when you get home. * Know all of the side effects of your medicine. If in doubt, ask your pharmacist * Call your Primary Care doctor's office if you have any side effects. * Be sure all of your doctors know what medicine and herbs you take (including cold, flu, and herbal medicine). Take the following with you to your follow-up doctor appointments: * Weight Chart * Medication List * List of questions Do not drink excessive alcohol, beer or wine. Pending Studies at Discharge: No Stand-Alone Forms: My [facility] [employer], Smoking Cessation Medications and DC Order Prescriptions: New Eliquis 5 mg Tablet 5 mg PO BID Qty: 60 0RF doxycycline hyclate 50 mg Capsule 50 mg PO Q24H Qty: 5 0RF lisinopril [Zestril] 5 mg Tablet 5 mg PO QAM Qty: 30 0RF metronidazole 0.75 % Gel 1 applic topical BID Qty: 45 0RF Rx Instructions: Apply to rash on face Continued atorvastatin 20 mg tablet 20 mg PO QPM Qty: 30 0RF metoprolol succinate 50 mg tablet extended release 24 hr 50 mg PO DAILY Qty: 30 0RF Rx Instructions: TAKE WITH 12.5MG = 62.5MG DAILY fexofenadine 180 mg tablet 180 mg PO DAILY Qty: 30 0RF levothyroxine 75 mcg capsule 75 mcg PO DAILY Qty: 30 0RF Rx Instructions: Take on an empty stomach 1 hour prior to eating or taking other meds aspirin [Adult Low Dose Aspirin] 81 mg tablet,delayed release (DR/EC) 81 mg PO DAILY Qty: 30 0RF Rx Instructions: OTC Discontinued magnesium 250 mg tablet 250 mg PO BID metoprolol succinate 25 mg tablet extended release 24 hr 12.5 mg PO DAILY Qty: 45 3RF Rx Instructions: TAKE WITH 50MG = 62.5MG DAILY potassium chloride [Klor-Con M20] 20 mEq tablet,ER particles/crystals 20 meq PO DAILY Qty: 90 1RF verapamil 240 mg tablet extended release 120 mg PO QAM Qty: 45 3RF Discharge Orders: Discharge Order (Routine); Ordered 06/06/22 Ordered By: Anupama Franco Admission Data Admit Date/Time: 06/01/22 22:39 Attending Provider: Anupama Franco Admit Provider: Hugo Nicolas Primary Care Provider: PCP,NO Other Providers: Kelvin Maldonado ; Phillip Card ; Hugo Nicolas ; Bola Arora ; Pablo Garcia Coding Level of Care Code D/C DAY MANAGEMENT >30 MINS Diagnoses Atrial fibrillation with rapid ventricular response I48.91 Cardiomyopathy I42.9 HFrEF (heart failure with reduced ejection fraction) I50.20 Rosacea L71.9 Hypertension I10 Hypercholesterolemia E78.00 Elevated troponin R77.8 Stas's thyroiditis E06.3 Hypothyroidism (acquired) E03.9 Acute encephalopathy G93.40
== END 2022-06-06 17:03 | disposition home or self-care (01) | DRG 280 ==
LOC: ED 19:04 → SUATTDRO 22:39 → 2S 22:39 → 1E 06-02 18:12 → 2N 06-04 11:49

== ENCOUNTER 2022-08-21 06:21 | Inpatient (IN) ==
[2022-08-21 07:07] LABS: Basophils # (auto) 0.08 K/uL (0-0.2); Basophils % (auto) 0.9 %; Eosinophils # (auto) 0.14 K/uL (0-0.50); Eosinophils % (auto) 1.6 %; Hematocrit (blood only) 44.7 % (34.1-44.9); Immature Granulocytes # (auto) 0.04 K/uL (0.00-0.02); Immature Granulocytes % (auto) 0.4 %; Lymphocytes # (auto) 1.86 K/uL (1.2-3.4); Lymphocytes % (auto) 20.8 %; Mean Corpuscular Hemoglobin 30.4 pg (25.0-34.0); Mean Corpuscular Hgb Conc 33.6 g/dL (32.0-36.0); Mean Corpuscular Volume 90.7 fL (80.0-100.0); Mean Platelet Volume 12.5 fL (9.4-12.3); Monocytes # (auto) 0.55 K/uL (0.24-0.82); Monocytes % (auto) 6.2 %; Neutrophils # (auto) 6.27 K/uL (1.4-6.5); Neutrophils % (auto) 70.1 %; Platelet Count 201 K/uL (130-400); RDW Standard Deviation 64.3 fL (36.4-46.3); Red Blood Count 4.93 M/uL (3.93-5.22); White Blood Count 8.94 K/ul (4.8-10.8)
--- NOTE | 2022-08-21 07:17 | Emergency Department Note ---
Impression & Plan Anasarca, Atrial fibrillation with rapid ventricular response, Generalized weakness, Intertrigo ED Provider Note INFORMANT: Patient ED PROVIDER(S): Kirk Casillas MD CHIEF COMPLAINT: Swelling PLAN: Disposition: Admitted Condition: Good Outpatient prescription management: none Referral: None MEDICAL DECISION MAKING: Patient presented emergency room because of swelling and weakness. She had significant mount of edema on physical examination. No signs of cellulitis. Vital signs showed that she had tachycardia and borderline hypotension from her rapid atrial fibrillation. She did have significant tachycardia prehospital and was treated with IV Cardizem. The patient is likely hypotensive from that Cardizem dose. She is mentating well and not having any issues with any ligh theaded or dizziness at this time. EMS did note that the patient's living situation was concerning. The patient does live with her mother who unfortunately had a fall and significant head injury with dehydration and UTI. She is being admitted. The patient's ECG did showed an A. fib with improved T wave inversions. Her chest x-ray showed some cardiomegaly and CHF. Her troponin was minimally elevated and she did have an elevated and gap and low CO2. She did not have any significant hyperglycemia. CBC was unremarkable. Patient is wilda need further management in the hospital for this atrial fibrillation and fluid overload issue. [facility] Patient was evaluated in the ER and admitted for further management Triage Nursing notes reviewed and agree them. Vital Signs: reviewed and remarkable for tachycardia and hypotension Differential diagnosis: Infection, dehydration, metabolic abnormality, hypo/hyperglycemia, electrolyte disturbance, anemia, hypoxia, cardiac sources, intracerebral event, toxicologic, neurologic, as well as other pathologies. Diagnostics interpreted by me: ECG: Twelve-lead ECG reveals atrial fibrillation with PVCs and low QRS at [address] elevation. There is a septal Q wave present. Improved T wave inversions present when compared to prior. Cardiac Monitoring: Cardiac monitoring ordered by me: The patient was placed on continuous cardiac monitoring and observed. It revealed atrial fibrillation with a rate of 115 bpm. Imaging studies: Chest x-ray as noted below HPI: The patient is a 71year old female who presents to the Emergency Room with complaints of swelling. This started over the last few weeks and is described as both legs and up into the lower abdomen. The patient also notes the followin g associated symptoms, generalized weakness, weeping of the legs. The patient has been started on Lasix a days ago for relieving factors. Current pain is rated as 0/10. Patient states that she is so weak that she has difficulty getting off the couch. EMS was summoned to her residence and they noted that conditions were poor. She was in rapid A. fib with a heart rate over 150. She was given 20 mg of Cardizem. Pt denies LOC, headache, fevers, chills, diaphoresis, visual changes, neck pain, chest pain, breathing difficulties, nausea, vomiting, abdominal pain, back pain, melena, hematochezia, urinary symptoms, numbness, lymphadenopathy, rash, or other complaints. ROS: See above HPI for pertinent positives & negatives. A total of 10 systems reviewed and were otherwise negative. PAST MEDICAL HISTORY:See Below , atrial fibrillation, heart failure, hypertension PAST SURGICAL HISTORY:See Below, FAMILY HISTORY:See Below SOCIAL HISTORY:See Below, lives with mother HOME MEDICATIONS:See Below ALLERGIES:See Below VITALS:See Below PHYSICAL EXAMINATION: GENERAL: Awake, alert, [id number], in no distress HENT: Normocephalic, atraumatic. Oropharynx unremarkable. EYES: Normal conjunctiva. Sclera non-icteric. NECK: Inspection normal. Non-tender. Supple. No nuchal rigidity. FROM. No masses. RESPIRATORY: Clear to auscultation. No wheezes. No rales. Normal respiratory effort. CARDIAC: Borderline tachycardic rate. Irregular rhythm. No murmurs. No rubs. Extremities warm and well perfused. Pulses equal. No JVD. GI: Soft, non-distended. No tenderness to palpation. No rebound or guarding. No masses. MUSCULOSKELETAL: Atraumatic. Chest examination reveals no tenderness. The back is symmetrical on inspection without obvious abnormality. There is no CVA tenderness to palpation. No joint edema. LOWER EXTREMITIES: Calves are equal size bilaterally and non-tender. 3-4+ edema. Chronic venous discoloration. NEURO: Normal sensorium. No sensory or motor deficits noted. SKIN: There is intertrigo noted below both breasts. No jaundice noted. 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 Beliefs That Will Affect Care: None marital status: Single Current Living Situation: Parent Other Information That Helps Us Care for You: No Feels Safe at Home: Yes Assistive Devices: Walker Allergies Allergies Allergy/AdvReac Type Severity Reaction Status Date / Time aspirin Allergy Unknown CHEST Verified 06/01/22 20:29 TIGHTNESS, RINGING IN EARS Home Meds Previous Rx's Medication Instructions Recorded aspirin 81 mg tablet,delayed 81 mg PO DAILY #30 tabs 06/06/22 release (Adult Low Dose Aspirin) fexofenadine 180 mg tablet 180 mg PO DAILY #30 tabs 06/06/22 metronidazole 0.75 % topical gel 1 applic topical BID #45 grams 06/06/22 sacubitril 24 mg-valsartan 26 mg 1 tab PO BID #60 tabs 06/25/22 tablet (Entresto) metoprolol succinate 50 mg 50 mg PO DAILY #30 tabs 07/02/22 tablet,extended release 24 hr apixaban 5 mg tablet (Eliquis) 5 mg PO BID #60 tabs 07/13/22 atorvastatin 20 mg tablet 20 mg PO QPM #30 tabs 07/13/22 levothyroxine 75 mcg capsule 75 mcg PO DAILY #30 caps 07/13/22 furosemide 40 mg tablet 40 mg PO DAILY #30 tabs 08/09/22 potassium chloride 20 mEq 20 meq PO DAILY #30 tabs 08/09/22 tablet,extended release(part/cryst) (Klor-Con M) Results & Data (ED) Vital Signs Vital Signs - 24 hr 08/21/22 06:30 08/21/22 06:33 08/21/22 06:48 Temperature 36.4 C L Temperature Source Oral Pulse Rate 104 H 123 H Pulse Rate from SpO2 Sensor 105 H Pulse Rhythm Irregular Respiratory Rate 22 24 Respiratory Effort / Characteristics Non-Labored Respiratory Depth Normal Blood Pressure 100/57 L 88/64 L Blood Pressure Mean 71 72 Pulse Oximetry 95 94 Oxygen Delivery Method Room Air Sepsis Recent Fever Within 48 Hours No Sepsis New/Unexplained Change in Mental Status No Sepsis Action Taken by Nursing No Action Required 08/21/22 07:01 08/21/22 07:30 08/21/22 08:00 Temperature Temperature Source Pulse Rate 95 H 84 90 Pulse Rate from SpO2 Sensor 88 85 96 H Pulse Rhythm Respiratory Rate 22 20 24 Respiratory Effort / Characteristics Respiratory Depth Blood Pressure 96/58 L 100/61 104/64 Blood Pressure Mean 70 74 77 Pulse Oximetry 95 96 96 Oxygen Delivery Method Sepsis Recent Fever Within 48 Hours Sepsis New/Unexplained Change in Mental Status Sepsis Action Taken by Nursing 08/21/22 08:30 08/21/22 09:00 08/21/22 09:30 Temperature Temperature Source Pulse Rate 99 H 118 H 127 H Pulse Rate from SpO2 Sensor 106 H 129 H 122 H Pulse Rhythm Respiratory Rate 20 22 22 Respiratory Effort / Characteristics Respiratory Depth Blood Pressure 107/68 95/72 L 117/67 Blood Pressure Mean 81 79 83 Pulse Oximetry 96 97 96 Oxygen Delivery Method Sepsis Recent Fever Within 48 Hours Sepsis New/Unexplained Change in Mental Status Sepsis Action Taken by Nursing Laboratory Data Result diagrams: 08/21/22 06:38 08/21/22 06:38 Lab Results 08/21/22 08/21/22 08/21/22 Range/Units 06:38 06:38 06:38 WBC 8.94 (4.8-10.8) K/ul RBC 4.93 (3.93-5.22) M/uL Hgb 15.0 (12.0-16.0) g/dl Hct 44.7 (34.1-44.9) % MCV 90.7 (80.0-100.0) fL MCH 30.4 (25.0-34.0) pg MCHC 33.6 (32.0-36.0) g/dL RDW Std Deviation 64.3 H (36.4-46.3) fL RDW Coeff of Елена 20.0 H (11.5-14.5) % Plt Count 201 (130-400) K/uL MPV 12.5 H (9.4-12.3) fL Immature Gran % (Auto) 0.4 % Neut % (Auto) 70.1 % Lymph % (Auto) 20.8 % Day % (Auto) 6.2 % Eos % (Auto) 1.6 % Baso % (Auto) 0.9 % Neut # (Auto) 6.27 (1.4-6.5) K/uL Lymph # (Auto) 1.86 (1.2-3.4) K/uL Day # (Auto) 0.55 (0.24-0.82) K/uL Eos # (Auto) 0.14 (0-0.50) K/uL Baso # (Auto) 0.08 (0-0.2) K/uL Immature Gran # (Auto) 0.04 H (0.00-0.02) K/uL Sodium 137 (136-145) mmol/L Potassium 4.5 (3.5-5.1) mmol/L Chloride 108 H (98-107) mmol/L Carbon Dioxide 17 L (21-32) mmol/L Anion Gap 12 H (3-11) BUN 30 H (6-23) mg/dl Creatinine 1.02 (0.6-1.2) mg/dl Est Cr Clr Drug Dosing 63.1 ml/min Est GFR ( Amer) 63.6 ml/min Est GFR (Non-Af Amer) 54.9 ml/min BUN/Creatinine Ratio 29.4 H (10-20) Glucose 124 H (70-99(Fasting)) mg/dl Calcium 8.2 L (8.5-10.1) mg/dl Magnesium 1.9 (1.7-2.4) mg/dl Total Bilirubin 1.8 H (0.2-1.0) mg/dl AST 42 H (13-39) U/L ALT 35 (7-52) U/L Alkaline Phosphatase 187 H (34-104) U/L Troponin I High Sens 27.9 H D (0-14) pg/ml B-Natriuretic Peptide (0-100) pg/ml Total Protein 5.5 L (6.0-8.3) gm/dl Albumin 3.2 L (3.4-5.0) gm/dl Globulin 2.3 L (2.5-4.0) gm/dl Albumin/Globulin Ratio 1.4 (0.9-2) TSH 40.309 H (0.300-4.500) uIu/ml Free T4 0.59 L (0.61-1.60) ng/dl SARS-CoV-2, RNA, NAAT (NEGATIVE) 08/21/22 08/21/22 Range/Units 06:38 09:50 WBC (4.8-10.8) K/ul RBC (3.93-5.22) M/uL Hgb (12.0-16.0) g/dl Hct (34.1-44.9) % MCV (80.0-100.0) fL MCH (25.0-34.0) pg MCHC (32.0-36.0) g/dL RDW Std Deviation (36.4-46.3) fL RDW Coeff of Елена (11.5-14.5) % Plt Count (130-400) K/uL MPV (9.4-12.3) fL Immature Gran % (Auto) % Neut % (Auto) % Lymph % (Auto) % Day % (Auto) % Eos % (Auto) % Baso % (Auto) % Neut # (Auto) (1.4-6.5) K/uL Lymph # (Auto) (1.2-3.4) K/uL Day # (Auto) (0.24-0.82) K/uL Eos # (Auto) (0-0.50) K/uL Baso # (Auto) (0-0.2) K/uL Immature Gran # (Auto) (0.00-0.02) K/uL Sodium (136-145) mmol/L Potassium (3.5-5.1) mmol/L Chloride (98-107) mmol/L Carbon Dioxide (21-32) mmol/L Anion Gap (3-11) BUN (6-23) mg/dl Creatinine (0.6-1.2) mg/dl Est Cr Clr Drug Dosing ml/min Est GFR ( Amer) ml/min Est GFR (Non-Af Amer) ml/min BUN/Creatinine Ratio (10-20) Glucose (70-99(Fasting)) mg/dl Calcium (8.5-10.1) mg/dl Magnesium (1.7-2.4) mg/dl Total Bilirubin (0.2-1.0) mg/dl AST (13-39) U/L ALT (7-52) U/L Alkaline Phosphatase (34-104) U/L Troponin I High Sens (0-14) pg/ml B-Natriuretic Peptide 1611 H (0-100) pg/ml Total Protein (6.0-8.3) gm/dl Albumin (3.4-5.0) gm/dl Globulin (2.5-4.0) gm/dl Albumin/Globulin Ratio (0.9-2) TSH (0.300-4.500) uIu/ml Free T4 (0.61-1.60) ng/dl SARS-CoV-2, RNA, NAAT NEGATIVE (NEGATIVE) Administered Medications Metoprolol Tartrate (Metoprolol Tartrate 25 Mg Tab) 25 mg PO BID SARABJIT Stop: 09/20/22 11:14 Last Admin: 08/21/22 11:35 Dose: 25 mg Documented By: AMRIK Discontinued Medications Apixaban (Apixaban 5 Mg Tablet) 5 mg PO NOW STA Stop: 08/21/22 10:53 Last Admin: 08/21/22 11:35 Dose: 5 mg Documented By: AMRIK Furosemide (Furosemide Inj 20 Mg/2 Ml Vial) 20 mg IV ONE ONE Stop: 08/21/22 11:01 Last Admin: 08/21/22 11:34 Dose: 20 mg Documented By: AMRIK Levothyroxine Sodium (Levothyroxine Sodium 75 Mcg Tablet) 75 mcg PO NOW STA Stop: 08/21/22 10:57 Last Admin: 08/21/22 11:35 Dose: 75 mcg Documented By: AMRIK Metoprolol Succinate (Metoprolol Succ 50mg Ext Rel Tab) 50 mg PO NOW STA Stop: 08/21/22 10:53 Last Admin: 08/21/22 11:44 Dose: Not Given Documented By: AMRIK Imaging Data Radiologist's Impression: Chest X-Ray 08/21/22 06:53 SINGLE VIEW CHEST CLINICAL HISTORY: Generalized weakness. FINDINGS: An AP, portable, upright chest radiograph is compared to study dated 06/04/2022. Correlation is made with chest CT dated 06/02/2022. The heart is enlarged. There is mild pulmonary vascular congestion. Chronic interstitial thickening is similar previous. There are bilateral pleural effusions with dependent consolidation. Foci of parenchymal scarring are seen throughout both lungs. There is volume loss in the left lung. No pneumothorax is seen. The skeletal structures are osteopenic. The bony thorax is grossly intact. IMPRESSION: 1. Cardiomegaly with pulmonary vascular congestion. 2. Pleural effusions with dependent consolidation. ACT 112: Negative or not required by law. Electronically signed by: Kelvin Gupta M.D. 08/21/2022 7:26 AM Discharge Plan Visit Data Chief Complaint: Swelling/Edema to Extremity Stated Complaint: FALL/DIFFICULT AMBULATION ED Provider: Kirk Casillas Discharge Problem: Anasarca, Atrial fibrillation with rapid ventricular response, Generalized weakness, Intertrigo Patient Disposition: Admitted As Inpatient Discharge Instructions Interventions: ED Discharge Assessment Last Done: 08/21/22 11:50
--- NOTE | 2022-08-21 07:28 | XRay Report ---
SINGLE VIEW CHEST CLINICAL HISTORY: Generalized weakness. FINDINGS: An AP, portable, upright chest radiograph is compared to study dated 06/04/2022. Correlation is made with chest CT dated 06/02/2022. The heart is enlarged. There is mild pulmonary vascular conges tion. Chronic interstitial thickening is similar previous. There are bilateral pleural effusions with dependent consolidation. Foci of parenchymal scarring are seen throughout both lungs. There is volum e loss in the left lung. No pneumothorax is seen. The skeletal structures are osteopenic. The bony th orax is grossly intact. IMPRESSION: 1. Cardiomegaly with pulmonary vascular congestion. 2. Pleural effusions with dependent consolidation. ACT 112: Negative or not required by law. Electronically signed by: Kelvin Gupta M.D. 08/21/2022 7:26 AM
[2022-08-21 08:07] LABS: Albumin Globulin Ratio 1.4 (0.9-2); Albumin Level 3.2 gm/dl (3.4-5.0); Bilirubin,Total 1.8 mg/dl (0.2-1.0); Calcium 8.2 mg/dl (8.5-10.1); Globulin 2.3 gm/dl (2.5-4.0); Magnesium 1.9 mg/dl (1.7-2.4); Potassium 4.5 mmol/L (3.5-5.1); Total Protein 5.5 gm/dl (6.0-8.3)
[2022-08-21 08:24] LABS: Troponin I High Sensitivity 27.9 pg/ml (0-14)
[2022-08-21 08:51] LABS: BUN Creatinine Ratio 29.4 (10-20); Creatinine Clr Calc Pharmacy 63.1 ml/min; Est GFR (African American) 63.6 ml/min; Est GFR (Non-African American) 54.9 ml/min
--- NOTE | 2022-08-21 10:20 | History & Physical Report ---
Date of Service August 21, 2022 Assessment & Plan (1) Atrial fibrillation with rapid ventricular response: Plan: - HR 150s at home despite compliance with metoprolol 50 mg daily. Did not take yet today. EMS gave 20 mg of Cardizem en route. - HR maintained in 130-150s in ED, BP initially soft 80s/40s, now improved 110s/60s. - Morning dose of Eliquis given, metoprolol succinate 50 mg once daily switched to metoprolol tartrate 25 mg BID given soft BPs on presentation. - Cardiology consulted, appreciate their recommendations. - Echo ordered. - K 4.5, Mg 1.9. - 20 mg IV Lasix given in ED for volume overload. (2) HFrEF (heart failure with reduced ejection fraction): Plan: Acute on chronic HFrEF - BNP 1611 with anasarca/pulmonary vascular congestion apparently resistant to PO Lasix over the past 8 days. - Echo in May: EF 15-20%. - With 3+ pitting edema bilaterally/anasarca. - Continue ASA, statin, beta helen and Entresto. (3) Elevated LFTs: Plan: TBili, AST, and alk phos mildly elevated no abd pain or tenderness suspect hepatic congestion from HF trend LFTs consider liver US if not improving with diuresis but doubt any primary liver issue at this time (4) Metabolic acidosis: Plan: HCO3 17 with AG 12 on admission possibly from being intravascularly volume depleted? No evidence of sepsis or infection. Lactate not checked on arrival diuresing follow BMP (5) Stas's thyroiditis: Plan: - TSH 41, free T4 pending. - Patient reports compliance with levothyroxine 75 mcg. Likely gut wall edema is inhibiting absorption. - We will increase levothyroxine to 100 mcg daily. -follow TFTs in 4-6 weeks as outpt (6) Elevated troponin: Plan: Myocardial demand ischemia - hs trop elevated at 27, likely secondary to demand with A. fib HR 150s, however will trend. - Cardiology consulted as above. (7) Cardiomyopathy: Plan: - Unknown etiology, but suspected to be secondary to A. fib RVR. - Echo in May: EF 15-20%. - Updating echo as above. - Continue Entresto as BP will tolerate. (8) Anasarca: Plan: - 8 days of rapid fluid overload in lower extremities and abdomen, unchanged by taking Lasix 40 mg daily. - 20 mg IV Lasix given in ED. Can give further doses if no improvement as long as patient's BP can tolerate. (9) Generalized weakness: Plan: - Ongoing since last admission, worse with b/l leg edema. - Patient was diachagrdd home on last admission without home health and states she feels too weak in her hip muscles to ambulate off couch at home. - PT/OT to eval and treat patient while admitted, she may require rehab or home health. (10) Hypertension: Plan: - Patient presented initially mildly hypotensive, therefore will hold morning dose of Entresto. - If patient becomes normotensive with better rate control, can continue Entresto. (11) Hypercholesterolemia: Plan: - Continue atorvastatin 20 mg. (12) Rosacea: Plan: - Continue metronidazole gel. Plan - Admit to PCU. - SCDs, Eliquis for VTE PPx. - DNR/DNI. History of Present Illness Chief Complaint: Extremity weakness, swelling x8 days Primary Care Provider: NO PCP Debby Mccray is a 71-year-old female with a past medical history significant for A. fib, HFrEF, hypertension, hypercholesteremia, and Stas's thyroiditis who presents today planing of lower extremity swelling. 8 days ago, patient noted an abrupt swelling in her bilateral ankles which is since progressed up her legs bilaterally and into her abdomen. She is prescribed 40 mg Lasix to take daily to help with this, however has not seen improvement. She is also becoming weak, which prompted her to present to the ED today. She is actually calling EMS for her mother who had fallen at home, but when patient sat down on the couch, she was too weak to get up. When EMS arrived, they assessed her and noted that she was in A. fib with an HR in 150s. She received 20 mg of Cardizem in route and was transported to ED for further evaluation. Upon presentation to our ED, BP 100/57, did become as low as 88/64, however now 110s/60s. HR [id number]. Afebrile, SPO2 >95% on RA. Labs significant for bicarb 17, BUN 30, calcium 8.2, T bili 1.8, AST 42, alk phos 187, troponin 27.9. Protein, albumin, globulin low. TSH 41.766, free T4 pending. BNP pending. CXR shows cardiomegaly and pulmonary vascular congestion, pleural effusions with dependent consolidation. Allergies Allergy/AdvReac Type Severity Reaction Status Date / Time aspirin Allergy Unknown CHEST Verified 06/01/22 20:29 TIGHTNESS, RINGING IN EARS Home Medications Medication Instructions Recorded Confirmed Type aspirin 81 mg tablet,delayed 81 mg PO DAILY #30 tabs 06/06/22 08/21/22 Rx release (Adult Low Dose Aspirin) fexofenadine 180 mg tablet 180 mg PO DAILY #30 tabs 06/06/22 08/21/22 Rx metronidazole 0.75 % topical gel 1 applic topical BID #45 grams 06/06/22 08/21/22 Rx sacubitril 24 mg-valsartan 26 mg 1 tab PO BID #60 tabs 06/25/22 08/21/22 Rx tablet (Entresto) metoprolol succinate 50 mg 50 mg PO DAILY #30 tabs 07/02/22 08/21/22 Rx tablet,extended release 24 hr apixaban 5 mg tablet (Eliquis) 5 mg PO BID #60 tabs 07/13/22 08/21/22 Rx atorvastatin 20 mg tablet 20 mg PO QPM #30 tabs 07/13/22 08/21/22 Rx levothyroxine 75 mcg capsule 75 mcg PO DAILY #30 caps 07/13/22 08/21/22 Rx furosemide 40 mg tablet 40 mg PO DAILY #30 tabs 08/09/22 08/21/22 Rx potassium chloride 20 mEq 20 meq PO DAILY #30 tabs 08/09/22 08/21/22 Rx tablet,extended release(part/cryst) (Klor-Con M) Past Med/Surg History Medical History Atrial fibrillation (03/10/12) Benign essential hypertension (03/10/12) Cardiomyopathy Stas's thyroiditis HFrEF (heart failure with reduced ejection fraction) Hypercholesterolemia Hypertension Hypothyroidism (acquired) Mitral and aortic regurgitation Rosacea Family History (Updated 08/21/22 @ 21:05 by Anupama Franco MD) Other Family history non-contributory Social History Smoking Status: Never smoker Hx Alcohol Use: No Hx Substance Use: No Preferred Language: Sinhala Communication Ability: Effective Financial Services Internship Required: No Beliefs That Will Affect Care: None marital status: Single Current Living Situation: Parent Other Information That Helps Us Care for You: No Feels Safe at Home: Yes Assistive Devices: Walker Review of Systems Review of Systems: Constitutional: weakness x 8 days; No fever/chills, fatigue, myalgias, anorexia, night sweats Eyes: No diplopia, no worsening or blurred vision ENT: normal hearing, no trouble swallowing Respiratory: No cough, sputum, dyspnea at rest or on exertion Cardiovascular: No chest pain, tightness or palpitations Abdomen: No pain, nausea, vomiting, diarrhea or constipation : Denies dysuria, hematuria, increased urgency/frequency, urinary retention Musculoskeletal: Bilateral lower extremity swelling, redness x8 days; no joint pain, calf pain Neurologic: No weakness, numbness/tingling, or balance problems Psychiatric: No anxiety or depression Skin: No rash or itch Physical Exam Physical Exam: General: awake, alert, no apparent distress Head: Normocephalic, atraumatic ENT: PERRL, EOMI, no pharyngeal exudate, mucous membranes moist Chest: Clear to auscultation, on room air, no adventitious breath sounds Cardiac: Irregularly irregular rhythm consistent with A. fib, tachycardic rate; no murmur, no JVD, normal peripheral pulses, good capillary refill Abdominal: Abdomen is firm but nontender; NABS x 4 quadrants, no rebound, guarding or tenderness Extremities: Bilateral lower extremity 3+ edema with erythematous changes to just below the knees bilaterally Psych: Normal mood and affect Neuro: AAO x 3, strength intact bilaterally and rated 5/5, no motor deficits, speech is clear, no peripheral sensory deficits Skin: no rash or erythema Results & Data Results & Data ([facility]) Vital Signs (Past 12 Hours) Vital Signs Temp Pulse Resp BP Pulse Ox O2 Del Method 08/21/22 09:30 127 H 22 117/67 96 08/21/22 09:00 118 H 22 95/72 L 97 08/21/22 08:30 99 H 20 107/68 96 08/21/22 08:00 90 24 104/64 96 08/21/22 07:30 84 20 100/61 96 09/27/22 07:01 95 H 22 96/58 L 95 08/21/22 06:48 123 H 24 88/64 L 94 08/21/22 06:33 36.4 C L 104 H 22 100/57 L 95 Room Air Laboratory Results Abnormal lab results 08/21/22 08/21/22 08/21/22 Range/Units 06:38 06:38 06:38 RDW Std Deviation 64.3 H (36.4-46.3) fL RDW Coeff of Елена 20.0 H (11.5-14.5) % MPV 12.5 H (9.4-12.3) fL Immature Gran # (Auto) 0.04 H (0.00-0.02) K/uL Chloride 108 H (98-107) mmol/L Carbon Dioxide 17 L (21-32) mmol/L Anion Gap 12 H (3-11) BUN 30 H (6-23) mg/dl BUN/Creatinine Ratio 29.4 H (10-20) Glucose 124 H (70-99(Fasting)) mg/dl Calcium 8.2 L (8.5-10.1) mg/dl Total Bilirubin 1.8 H (0.2-1.0) mg/dl AST 42 H (13-39) U/L Alkaline Phosphatase 187 H (34-104) U/L Troponin I High Sens 27.9 H D (0-14) pg/ml B-Natriuretic Peptide (0-100) pg/ml Total Protein 5.5 L (6.0-8.3) gm/dl Albumin 3.2 L (3.4-5.0) gm/dl Globulin 2.3 L (2.5-4.0) gm/dl TSH 41.766 H (0.300-4.500) uIu/ml 08/21/22 Range/Units 06:38 RDW Std Deviation (36.4-46.3) fL RDW Coeff of Елена (11.5-14.5) % MPV (9.4-12.3) fL Immature Gran # (Auto) (0.00-0.02) K/uL Chloride (98-107) mmol/L Carbon Dioxide (21-32) mmol/L Anion Gap (3-11) BUN (6-23) mg/dl BUN/Creatinine Ratio (10-20) Glucose (70-99(Fasting)) mg/dl Calcium (8.5-10.1) mg/dl Total Bilirubin (0.2-1.0) mg/dl AST (13-39) U/L Alkaline Phosphatase (34-104) U/L Troponin I High Sens (0-14) pg/ml B-Natriuretic Peptide 1611 H (0-100) pg/ml Total Protein (6.0-8.3) gm/dl Albumin (3.4-5.0) gm/dl Globulin (2.5-4.0) gm/dl TSH (0.300-4.500) uIu/ml Diagnostic Findings Chest X-Ray 08/21/22 06:53 SINGLE VIEW CHEST CLINICAL HISTORY: Generalized weakness. FINDINGS: An AP, portable, upright chest radiograph is compared to study dated 06/04/2022. Correlation is made with chest CT dated 06/02/2022. The heart is enlarged. There is mild pulmonary vascular congestion. Chronic interstitial thickening is similar previous. There are bilateral pleural effusions with dependent consolidation. Foci of parenchymal scarring are seen throughout both lungs. There is volume loss in the left lung. No pneumothorax is seen. The skeletal structures are osteopenic. The bony thorax is grossly intact. IMPRESSION: 1. Cardiomegaly with pulmonary vascular congestion. 2. Pleural effusions with dependent consolidation. ACT 112: Negative or not required by law. Electronically signed by: Kelvin Gupta M.D. 08/21/2022 7:26 AM ECG Additional Comments: Atrial fibrillation with premature ventricular or aberrantly conducted complexes Low voltage QRS Septal infarct , age undetermined Abnormal ECG When compared with ECG of 05-JUN-2022 04:57, Significant changes have occurred. Code Status & VTE Plan Code Status DNR/DNI. Supervising Physician Co-Signing Physician Notes PA Supervision Note: I personally saw and examined the patient. I verified all peck points and agree with ERIK Nur with the following exceptions and/or additions: S-Pt presents with weakness, severe edema and weight gain, rapid afib although she was not aware of this. Denies CP. No recent illness, legs red but same as always. Has weeping blisters from legs. O- Vitals reviewed Gen: [AAOx3, NAD] HEENT: [anicteric sclerae, EOMI] CV: [irreg irreg, rapid rate, no mgr nl S1S2, +JVD] Pulm: [unlabored breathing, +crackles bilat lower and middle lung noel, no rhonchi or wheezing] Abd: [+BS soft NT ND no masses or hernias] Ext: [4+ pitting edema all the way to abdomen] Skin: [chronic venous stasis changes with erythema bilat legs, not hot otr tender to touch, with weeping serous fluid from feet and legs, some small blisters] Neuro: [full strength throughout] Labs, Rads, and ECG reviewed A/P-71 yo female with history as above, here with acute on chronic HFrEF, anasarca, weakness, and rapid atrial fibrillation -admit for IV diuresis -added on digoxin and increased metoprolol for better rate control-convert back to Toprol XL after titrated up with tartrate appreciate Cardio consult Will likely be here for 4-5 days for adequate diuresis PG Care Time/CCT Total # of Minutes Spent Total Time Spent with Patient: Total time spent is greater than 50% in coordination of care (as documented) at patient's floor/unit and/or counseling patient: Coding Level of Care Code 66206 Initial Inpt Care Lvl 3 Diagnoses Atrial fibrillation with rapid ventricular response I48.91 HFrEF (heart failure with reduced ejection fraction) I50.20 Elevated LFTs R79.89 Metabolic acidosis E87.2 Stas's thyroiditis E06.3 Elevated troponin R77.8 Cardiomyopathy I42.9 Anasarca R60.1 Generalized weakness R53.1 Hypertension I10 Hypercholesterolemia E78.00 Rosacea L71.9
[2022-08-21] MEDS ORDERED: APIXABAN 5 MG TABLET PO STA (10:52)
[2022-08-21] MEDS ORDERED: METOPROLOL SUCC 50MG EXT REL TAB PO STA (10:52)
[2022-08-21] MEDS ORDERED: LEVOTHYROXINE SODIUM 75 MCG TABLET PO STA (10:56)
[2022-08-21] MEDS ORDERED: FUROSEMIDE INJ 20 MG/2 ML VIAL IV ONE (11:00)
[2022-08-21] MEDS ORDERED: METOPROLOL TARTRATE 25 MG TAB PO SCH (11:15)
[2022-08-21 11:28] LABS: T4 Free Thyroxine 0.59 ng/dl (0.61-1.60)
[2022-08-21 12:54] LABS: Thyroid Stimulating Hormone 40.309 uIu/ml (0.300-4.500)
[2022-08-21] MEDS ORDERED: POLYETHYLENE (MIRALAX) 17 GM PACK PO PRN (13:00)
[2022-08-21] MEDS ORDERED: ONDANSETRON INJ 2 MG/ML 2 ML VIAL IV PRN (13:00)
--- NOTE | 2022-08-21 16:15 | Cardiology Consultation ---
Date of Consultation August 21, 2022 Assessment & Plan (1) Acute on chronic HFrEF (heart failure with reduced ejection fraction): (2) Atrial fibrillation with rapid ventricular response: (3) Cardiomyopathy: (4) Mitral and aortic regurgitation: (5) Elevated troponin: (6) Hypertension: Plan ASSESSMENT/PLAN: 1. Acute on chronic heart failure with reduced EF: She appears to be significantly hypervolemic. Recommend intravenous diuretic, such as Lasix 40 mg IV daily or b.i.d. to achieve 1-2 L negative net fluid balance daily, or more if blood pressure tolerates. Recommend spironolactone and discontinuation of oral potassium supplementation. Continue Entresto. Continue metoprolol succinate on discharge however currently on metoprolol tartrate in an attempt to titrate medical therapy to better control heart rate. Recommend SG LT 2 inhibitor on discharge. Recommend heart failure program. Heart failure program may assist in obtaining a scale for her and hopefully can help manage her with frequent phone calls as well, given transportation is difficult and she has missed or canceled appointments since last hospital stay. 2. Cardiomyopathy: Possibly tachycardia induced, but still tachycardic today. Repeat echo pending. If LV systolic function does not improve with controlled heart rate and optimal medical therapy, would consider ICD for primary prevention. Would also consider ischemic evaluation if no improvement with controlled heart rate, and other secondary workup if applicable. 3. Atrial fibrillation with rapid ventricular response: Continue metoprolol tartrate and can increase to 50 mg twice daily. Would hold if systolic blood pressures less than 90 or for symptomatic hypotension. Also, will start digoxin, which may also offer some benefit from a heart failure standpoint. Avoid diltiazem given heart failure with reduced EF. 4. Mitral and aortic regurgitation: Non severe per last echo report. Repeat echo pending. 5. Elevated troponin: High sensitivity troponin is only slightly elevated, but likely due to demand ischemia in the setting of AFib with RVR and decompensated heart failure. She did not present with acute coronary syndrome. 6. Hypertension: Carries a history of hypertension however blood pressure has been low-normal or mildly hypotensive, which is not unusual in the setting of severely reduced LV systolic function. 7. Disposition: Dr. Holm, her primary brazer furnace, will continue her care tomorrow when he returns. Patient care discussed with Ping Jha of the Heart failure program to enroll her in the program. Patient care communicated with primary hospitalist service, Alexandria Nur. Highly complex medical issues. Thank you for allowing me to participate in the care of your patient. Please call for any other questions or concerns. Sincerely, Sourav Yanez M.D. History of Present Illness Reason for Consultation: AFib with RVR Requesting Physician: Anupama Franco MD Attending Physician: Anupama Franco MD History of Present Illness Ms. Mccray is a pleasant 71-year-old female with a history significant for heart failure with reduced EF, cardiomyopathy, atrial fibrillation, hypertension, dyslipidemia, and hypothyroidism. Her primary brazer furnace is Dr. Holm. She was hospitalized in May of 2022 and found to have severely reduced LV systolic function, thought to be tachycardia induced perhaps. She was also in AFib with RVR. She was placed on metoprolol succinate, Entresto, Lasix, and set up for outpatient follow-up and repeat echo in the future. Unfortunately, she did not follow-up in the cardiology office. She does not drive and has difficulty finding transportation at times. She states that she is compliant with her medical therapy except for levothyroxine. She read the labels and states that she maintains a low-sodium diet. She does not have a scale to weigh herself. For the past 8 days her legs have been swelling. She sleeps in a recliner with her feet elevated due to the fact that she feels dizzy when laying in bed. She denies orthopnea, shortness of breath, syncope, near-syncope, chest pain, palpitations, melena, hematochezia, or hematuria. Her legs get weak with walking since they have been more swollen. She states that overall she feels better than she did last hospitalization. On presentation, she was found to be in AFib with RVR. She had received diltiazem IV by EMS and also a dose of metoprolol tartrate 25 mg here. She was hypotensive initially with systolic pressure in the 80s per report. She has had the following studies/procedures: 1. Echo 06/02/2022: Severely reduced LV systolic function. EF 15-20%. Moderate hypokinesis of the basal inferior and posterior segments with near akinesis of the remaining LV. Moderately to severely reduced RV systolic function. Left atrial dilation. Mild AI. Moderate MR. Review of systems: As above. Review of systems otherwise negative/unremarkable. Family history: No known premature CAD in first-degree relatives. Social history: She denies smoking, alcohol, or drug abuse. She lives at home with her mother. She has not been . No children. She was un accompanied. Allergies Allergy/AdvReac Type Severity Reaction Status Date / Time aspirin Allergy Unknown CHEST Verified 06/01/22 20:29 TIGHTNESS, RINGING IN EARS Home Medications Medication Instructions Recorded Confirmed Type aspirin 81 mg tablet,delayed 81 mg PO DAILY #30 tabs 06/06/22 08/21/22 Rx release (Adult Low Dose Aspirin) fexofenadine 180 mg tablet 180 mg PO DAILY #30 tabs 06/06/22 08/21/22 Rx metronidazole 0.75 % topical gel 1 applic topical BID #45 grams 06/06/22 08/21/22 Rx sacubitril 24 mg-valsartan 26 mg 1 tab PO BID #60 tabs 06/25/22 08/21/22 Rx tablet (Entresto) metoprolol succinate 50 mg 50 mg PO DAILY #30 tabs 07/02/22 08/21/22 Rx tablet,extended release 24 hr apixaban 5 mg tablet (Eliquis) 5 mg PO BID #60 tabs 07/13/22 08/21/22 Rx atorvastatin 20 mg tablet 20 mg PO QPM #30 tabs 07/13/22 08/21/22 Rx levothyroxine 75 mcg capsule 75 mcg PO DAILY #30 caps 07/13/22 08/21/22 Rx furosemide 40 mg tablet 40 mg PO DAILY #30 tabs 08/09/22 08/21/22 Rx potassium chloride 20 mEq 20 meq PO DAILY #30 tabs 08/09/22 08/21/22 Rx tablet,extended release(part/cryst) (Klor-Con M) Patient History Medical History Atrial fibrillation (03/10/12) Benign essential hypertension (03/10/12) Cardiomyopathy Stas's thyroiditis HFrEF (heart failure with reduced ejection fraction) Hypercholesterolemia Hypertension Hypothyroidism (acquired) Mitral and aortic regurgitation Rosacea Social History Smoking Status: Never smoker Hx Alcohol Use: No Hx Substance Use: No Preferred Language: Luxembourgish Communication Ability: Effective Bill Sorter Required: No Beliefs That Will Affect Care: None marital status: Single Current Living Situation: Parent Other Information That Helps Us Care for You: No Feels Safe at Home: Yes Assistive Devices: Walker Physical Exam Physical Exam: Gen.: No acute distress. Alert and oriented. HEENT: Anicteric sclera. Neck: JVD to the mandible while sitting upright. No bruits. Normal carotid upstrokes bilaterally. Cardiac: PMI was nonpalpable. No ventricular heave. Irregularly irregular and tachycardic. Normal S1-S2. No murmurs, rubs, or gallops. Pulmonary: Bibasilar rales. Abdomen: Soft, nontender, nondistended, with normoactive bowel sounds. No bruits noted. 1+ pitting edema of the abdominal wall. Extremities: 2+ radial pulses bilaterally. 2+ posterior tibialis pulses bilaterally. 3+ tense bilateral pitting edema of the lower extremities up to the knees and 2+ from the knees to the hips. No cyanosis. Psychiatric: Affect appears appropriate. Results & Data ([facility]) Vital Signs (Past 12 Hours) Vital Signs Temp Pulse Pulse Pulse Resp BP BP 08/21/22 15:34 36.5 C 130 H 18 98/65 L 08/21/22 15:46 08/21/22 15:26 36.7 C 135 H 106/70 08/21/22 11:50 08/21/22 09:30 127 H 22 117/67 08/21/22 09:00 118 H 22 95/72 L 08/21/22 08:30 99 H 20 107/68 08/21/22 08:00 90 24 104/64 08/21/22 07:30 84 20 100/61 08/21/22 07:01 95 H 22 96/58 L 08/21/22 06:48 123 H 24 88/64 L 08/21/22 06:33 36.4 C L 104 H 22 100/57 L Pulse Ox O2 Del Method 08/21/22 15:34 95 Room Air 08/21/22 15:46 Room Air 08/21/22 15:26 97 Room Air 08/21/22 11:50 Room Air 08/21/22 09:30 96 08/21/22 09:00 97 08/21/22 08:30 96 08/21/22 08:00 96 08/21/22 07:30 96 08/21/22 07:01 95 08/21/22 06:48 94 08/21/22 06:33 95 Room Air Laboratory Results Laboratory Results - last 24 hr 08/21/22 08/21/22 08/21/22 06:38 06:38 06:38 WBC 8.94 RBC 4.93 Hgb 15.0 Hct 44.7 MCV 90.7 MCH 30.4 MCHC 33.6 RDW Std Deviation 64.3 H RDW Coeff of Елена 20.0 H Plt Count 201 MPV 12.5 H Immature Gran % (Auto) 0.4 Neut % (Auto) 70.1 Lymph % (Auto) 20.8 Gregory % (Auto) 6.2 Eos % (Auto) 1.6 Baso % (Auto) 0.9 Neut # (Auto) 6.27 Lymph # (Auto) 1.86 Gregory # (Auto) 0.55 Eos # (Auto) 0.14 Baso # (Auto) 0.08 Immature Gran # (Auto) 0.04 H Sodium 137 Potassium 4.5 Chloride 108 H Carbon Dioxide 17 L Anion Gap 12 H BUN 30 H Creatinine 1.02 Est Cr Clr Drug Dosing 63.1 Est GFR ( Amer) 63.6 Est GFR (Non-Af Amer) 54.9 BUN/Creatinine Ratio 29.4 H Glucose 124 H Calcium 8.2 L Magnesium 1.9 Total Bilirubin 1.8 H AST 42 H ALT 35 Alkaline Phosphatase 187 H Troponin I High Sens 27.9 H D B-Natriuretic Peptide Total Protein 5.5 L Albumin 3.2 L Globulin 2.3 L Albumin/Globulin Ratio 1.4 TSH 40.309 H Free T4 0.59 L SARS-CoV-2, RNA, NAAT 08/21/22 08/21/22 08/21/22 06:38 09:50 11:14 WBC RBC Hgb Hct MCV MCH MCHC RDW Std Deviation RDW Coeff of Елена Plt Count MPV Immature Gran % (Auto) Neut % (Auto) Lymph % (Auto) Gregory % (Auto) Eos % (Auto) Baso % (Auto) Neut # (Auto) Lymph # (Auto) Gregory # (Auto) Eos # (Auto) Baso # (Auto) Immature Gran # (Auto) Sodium Potassium Chloride Carbon Dioxide Anion Gap BUN Creatinine Est Cr Clr Drug Dosing Est GFR ( Amer) Est GFR (Non-Af Amer) BUN/Creatinine Ratio Glucose Calcium Magnesium Total Bilirubin AST ALT Alkaline Phosphatase Troponin I High Sens 27.6 H B-Natriuretic Peptide 1611 H Total Protein Albumin Globulin Albumin/Globulin Ratio TSH Free T4 SARS-CoV-2, RNA, NAAT NEGATIVE Diagnostic Findings ECG personally reviewed 08/21/2022: AFib 98 beats per minute. Nonspecific T- wave abnormality. Septal infarct. Echo report reviewed as noted above in HPI. Chest x-ray 08/21/2022: Pulmonary vascular congestion. Pleural effusions with dependent consolidation per Radiology. Medications Administered Current Inpatient Medications Acetaminophen (Acetaminophen 325 Mg Tab) 650 mg PO Q4H PRN PRN Reason: Pain or Fever Stop: 09/20/22 12:59 Apixaban (Apixaban 5 Mg Tablet) 5 mg PO BID SARABJIT Stop: 09/20/22 20:59 Aspirin (Aspirin 81 Mg Ectab) 81 mg PO DAILY SARABJIT Stop: 09/21/22 08:59 Atorvastatin Calcium (Atorvastatin 20 Mg Tab) 20 mg PO QPM SARABJIT Stop: 09/20/22 20:59 Fexofenadine HCl (Fexofenadine Hcl 180 Mg Tab) 180 mg PO DAILY SARABJIT Stop: 09/21/22 08:59 Furosemide (Furosemide 40 Mg Tab) 40 mg PO DAILY SARABJIT Stop: 09/21/22 08:59 Levothyroxine Sodium (Levothyroxine Sodium 100 Mcg Tablet) 100 mcg PO DAILYBB SARABJIT Stop: 09/21/22 06:29 Metoprolol Tartrate (Metoprolol Tartrate 25 Mg Tab) 25 mg PO BID SARABJIT Stop: 09/20/22 11:14 Last Admin: 08/21/22 11:35 Dose: 25 mg Metronidazole (Metronidazole 0.75% Topical Gel 45 Gm Tube) 1 appln TOP BID SARABJIT Stop: 08/31/22 20:59 Ondansetron HCl (Ondansetron Inj 2 Mg/Ml 2 Ml Vial) 4 mg IV Q6H PRN PRN Reason: Nausea Stop: 09/20/22 12:59 Polyethylene Glycol (Polyethylene (Miralax) 17 Gm Pack) 17 gm PO DAILY PRN PRN Reason: Constipation Stop: 09/20/22 12:59 Potassium Chloride (Potassium Chloride Crtab 20 Meq Tabcr) 20 meq PO DAILY SARABJIT Stop: 09/21/22 08:59 Sacubitril/Valsartan (Valsartan/Sacubitril 26/24mg Tab) 1 tab PO BID SARABJIT Stop: 09/20/22 20:59 PG Care Time/CCT Total # of Minutes Spent Total Time Spent with Patient: Total time spent is greater than 50% in coordination of care (as documented) at patient's floor/unit and/or counseling patient: Coding Level of Care Code 31628 Initial Inpt Care Lvl 3 Diagnoses Acute on chronic HFrEF (heart failure with reduced ejection fraction) I50.23 Atrial fibrillation with rapid ventricular response I48.91 Cardiomyopathy I42.9 Mitral and aortic regurgitation I08.0 Elevated troponin R77.8 Hypertension I10
[2022-08-21] MEDS ORDERED: FUROSEMIDE 40 MG/4 ML VIAL IV ONE (16:35)
[2022-08-21] MEDS ORDERED: DIGOXIN 500 MCG in SYRINGE 9 ML IV ONE (16:45)
[2022-08-21] MEDS: ATORVASTATIN 20 MG TAB PO SCH (21:35)
[2022-08-21] MEDS: VALSARTAN/SACUBITRIL 26/24MG TAB PO SCH (21:35)
[2022-08-21] MEDS: APIXABAN 5 MG TABLET PO SCH (21:36)
[2022-08-21] MEDS: METOPROLOL TARTRATE 50 MG TAB PO SCH (21:37)
[2022-08-21] MEDS: metroNIDAZOLE 0.75% TOPICAL GEL 45 GM TUBE TOP SCH (21:39)
[2022-08-21] MEDS ORDERED: DIGOXIN 250 MCG in SYRINGE 9 ML IV ONE (22:32)
--- NOTE | 2022-08-21 23:09 | Electrocardiogram Report ---
Test Reason : Blood Pressure : / mmHG Vent. Rate : 098 BPM Atrial Rate : 102 BPM P-R Int : 000 ms QRS Dur : 064 ms QT Int : 318 ms P-R-T Axes : 000 066 -74 degrees QTc Int : 405 ms Poor data quality, interpretation may be adversely affected Atrial fibrillation with premature ventricular or aberrantly conducted complexes Low voltage QRS Septal infarct , age undetermined Nonspecific T wave abnormality Abnormal ECG When compared with ECG of 05-JUN-2022 04:57, T wave inversion no longer evident in Anterior leads T wave inversion no longer evident in Inferior leads Confirmed by Anthony Yanez ([id number]) on 08/21/2022 11:08:33 PM Referred By: REFERRED SELF Confirmed By:Anthony Yanez
[2022-08-21 23:39] LABS: Bacteria Urine Automated Negative (Negative); Bilirubin Urine Negative (Negative); Blood Urine Negative (Negative); Color Urine Yellow; Epithelial Cell Urine Auto >30 /lpf (0-5); Glucose Urine UA Negative (Negative); Ketones Urine Negative (Negative); Leukocyte Esterase Urine Trace (Negative); Nitrite Urine Negative (Negative); Protein Urine Negative (Negative); Specific Gravity Urine 1.012 (1.000-1.030); Urobilinogen Urine Negative (Negative)
[2022-08-21 23:41] LABS: Appearance Urine Clear (Clear)
[2022-08-22] MEDS ORDERED: diphenhydrAMINE Capsule 25 MG CAP PO ONE (02:56)
[2022-08-22] MEDS ORDERED: DIGOXIN 250 MCG in SYRINGE 9 ML IV ONE (04:35)
[2022-08-22] MEDS: LEVOTHYROXINE SODIUM 100 MCG TABLET PO SCH (05:35)
[2022-08-22 06:59] LABS: Hematocrit (blood only) 44.6 % (34.1-44.9); Hemoglobin 15.4 g/dl (12.0-16.0); Immature Granulocytes # (auto) 0.05 K/uL (0.00-0.02); Immature Granulocytes % (auto) 0.5 %; Lymphocytes # (auto) 1.74 K/uL (1.2-3.4); Lymphocytes % (auto) 17.7 %; Mean Corpuscular Hemoglobin 30.6 pg (25.0-34.0); Mean Corpuscular Hgb Conc 34.5 g/dL (32.0-36.0); Mean Corpuscular Volume 88.7 fL (80.0-100.0); Mean Platelet Volume 12.5 fL (9.4-12.3); Monocytes # (auto) 0.68 K/uL (0.24-0.82); Monocytes % (auto) 6.9 %; Neutrophils # (auto) 7.07 K/uL (1.4-6.5); Neutrophils % (auto) 71.9 %; Platelet Count 182 K/uL (130-400); RDW Coefficient of Variation 20.1 % (11.5-14.5); RDW Standard Deviation 62.4 fL (36.4-46.3); Red Blood Count 5.03 M/uL (3.93-5.22); White Blood Count 9.84 K/ul (4.8-10.8)
[2022-08-22] MEDS: ASPIRIN 81 MG ECTAB PO SCH (07:53)
[2022-08-22] MEDS: FEXOFENADINE HCL 180 MG TAB PO SCH (07:53)
[2022-08-22] MEDS: APIXABAN 5 MG TABLET PO SCH ×2 (07:53→21:15)
[2022-08-22] MEDS: METOPROLOL TARTRATE 50 MG TAB PO SCH ×2 (07:53→21:24)
[2022-08-22] MEDS: metroNIDAZOLE 0.75% TOPICAL GEL 45 GM TUBE TOP SCH ×2 (07:54→21:24)
[2022-08-22] MEDS: VALSARTAN/SACUBITRIL 26/24MG TAB PO SCH ×2 (07:54→21:14)
[2022-08-22] MEDS: SPIRONOLACTONE 25 MG TAB PO SCH (07:54)
[2022-08-22 08:09] LABS: Albumin Level 3.1 gm/dl (3.4-5.0); BUN Creatinine Ratio 29.2 (10-20); Bilirubin Direct 0.7 mg/dl (0-0.2); Bilirubin,Total 1.7 mg/dl (0.2-1.0); Calcium 8.3 mg/dl (8.5-10.1); Creatinine Clr Calc Pharmacy 52.9 ml/min; Est GFR (African American) 52.3 ml/min; Est GFR (Non-African American) 45.1 ml/min; Magnesium 1.9 mg/dl (1.7-2.4); Potassium 4.4 mmol/L (3.5-5.1); Total Protein 5.4 gm/dl (6.0-8.3)
[2022-08-22 08:11] LABS: Acanthocytes 1+; Polychromasia 1+
--- NOTE | 2022-08-22 08:28 | XCELERA ---
[id number] \\[id number]_Reports\[id number]
[2022-08-22] MEDS ORDERED: FUROSEMIDE 40 MG TAB PO SCH (09:00)
[2022-08-22] MEDS ORDERED: FUROSEMIDE 40 MG/4 ML VIAL IV SCH ×2 (09:00)
[2022-08-22] MEDS ORDERED: METOPROLOL SUCC 50MG EXT REL TAB PO SCH (09:00)
[2022-08-22] MEDS ORDERED: POTASSIUM CHLORIDE CRTAB 20 MEQ TABCR PO SCH (09:00)
[2022-08-22] MEDS: FUROSEMIDE 40 MG/4 ML VIAL IV SCH (17:34)
--- NOTE | 2022-08-22 21:03 | Hospitalist Progress Note ---
Date of Service August 22, 2022 Assessment & Plan (1) HFrEF (heart failure with reduced ejection fraction): Plan: Acute on chronic HFrEF Echo in 06/15 and this admission both with EF 15-20% Either tachy-arrhythmia induced or due to ischemia (has wall motion abnormal ities) or both Cont IV lasix BID Cont metoprolol 50mg BID Cont digoxin for a.fib rate control Cont Entresto twice daily Daily weights, daily BMP, etc. Fluid restrict to 1500cc/day Salt restrict May need heart cath later this admission to r/o ischemia/CAD (2) Atrial fibrillation with rapid ventricular response: Plan: Rates improved with addition of IV digoxin to her metoprolol Cont both Cont telemetry Cont Eliquis (3) Elevated LFTs: Plan: likely due to passive hepatic congestion from decompensated CHF trend LFTs (4) Stas's thyroiditis: Plan: decompensated. This will contribute to her CHF issues as well. TSH 41. FT4 very low. Patient reports compliance with levothyroxine 75 mcg. gut wall edema inhibiting absorption? increase levothyroxine to 100 mcg daily and repeat TSH in 6 weeks. (5) Elevated troponin: Plan: Likely Myocardial demand ischemia in setting of decompensated CHF and rapid a.f ib. No symptoms of ACS. With that said may need heart cath to r/o CAD - defer timing to cardiology. (6) Cardiomyopathy: Plan: 2nd to chronic, uncontrolled a.fib (suspected). Can't fully r/o CAD/ischemia. See above. (7) Anasarca: Plan: 2nd to severe, decompensated CHF. (8) Generalized weakness: Plan: 2nd to advanced cardiac disease. cont PT/OT. (9) Hypertension: Plan: controlled (10) Hypercholesterolemia: Plan: Continue atorvastatin 20 mg. Trend LFTs. (11) Rosacea: Plan: Continue metronidazole gel. Plan PT, OT Admission and Anticipated Discharge Date Admission Date: August 21, 2022 Subjective tele overnight - a.fib rates improved, with most now <100 she feels modestly better today less dyspnea at rest some [place] some orthopnea main complaint is that of ongoing edema no new complaints Review of Systems Review of Systems: gen - appetite wnl cv - no chest pain; orthopnea, edema continue pulm - no cough GI - no abd pain or N/V Physical Exam Physical Exam: gen - mild "quiet" tachypnea, but speaks in full sentences neck - JVD with +hepatojugular reflex mouth - MMM heart - irregularly irregular, s1 s2, regular rate, no murmur lungs - diffuse rales >1/2 way up back, L>R; decreased BS right base abd - body wall edema especially on flanks b/l; BS+, liver edge palpable ext - extensive edema all the way up to the thighs, pulses 2+ b/l skin - venous stasis changes b/l shins psych - a/o x 3 Results & Data Results & Data ([facility]) Vital Signs (Past 12 Hours) Vital Signs Temp Pulse Pulse Resp BP Pulse Ox O2 Del Method 08/22/22 19:00 36.7 C 87 20 103/62 96 08/22/22 15:32 36.6 C 84 19 122/65 96 Room Air 08/22/22 10:44 Room Air 08/22/22 10:42 36.4 C L 88 20 115/52 L 96 Room Air Laboratory Results Laboratory Results - last 24 hr 08/21/22 08/22/22 08/22/22 22:40 06:00 06:00 WBC 9.84 RBC 5.03 Hgb 15.4 Hct 44.6 MCV 88.7 MCH 30.6 MCHC 34.5 RDW Std Deviation 62.4 H RDW Coeff of Елена 20.1 H Plt Count 182 MPV 12.5 H Immature Gran % (Auto) 0.5 Neut % (Auto) 71.9 Lymph % (Auto) 17.7 [place] % (Auto) 6.9 Eos % (Auto) 2.0 Baso % (Auto) 1.0 Neut # (Auto) 7.07 H Lymph # (Auto) 1.74 [place] # (Auto) 0.68 Eos # (Auto) 0.20 Baso # (Auto) 0.10 Immature Gran # (Auto) 0.05 H Hypersegmented Neuts 1+ Polychromasia 1+ Acanthocytes (Spur) 1+ Sodium 138 Potassium 4.4 Chloride 106 Carbon Dioxide 24 Anion Gap 8 BUN 35 H Creatinine 1.20 Est Cr Clr Drug Dosing 52.9 Est GFR ( Amer) 52.3 Est GFR (Non-Af Amer) 45.1 BUN/Creatinine Ratio 29.2 H Glucose 106 H Calcium 8.3 L Magnesium 1.9 Total Bilirubin 1.7 H Direct Bilirubin 0.7 H AST 21 ALT 26 Alkaline Phosphatase 173 H Total Protein 5.4 L Albumin 3.1 L Urine Color Yellow Urine Appearance Clear Urine pH 5.0 Ur Specific [place] 1.012 Urine Protein Negative Urine Glucose (UA) Negative Urine Ketones Negative Urine Blood Negative Urine Nitrite Negative Urine Bilirubin Negative Urine Urobilinogen Negative Ur Leukocyte Esterase Trace H Urine WBC (Auto) 1-5 Urine RBC (Auto) 5-10 H U Hyaline Cast (Auto) 5-10 H U Epithel Cells (Auto) >30 H Urine Bacteria (Auto) Negative Digoxin 08/22/22 15:05 WBC RBC Hgb Hct MCV MCH MCHC RDW Std Deviation RDW Coeff of Елена Plt Count MPV Immature Gran % (Auto) Neut % (Auto) Lymph % (Auto) [place] % (Auto) Eos % (Auto) Baso % (Auto) Neut # (Auto) Lymph # (Auto) [place] # (Auto) Eos # (Auto) Baso # (Auto) Immature Gran # (Auto) Hypersegmented Neuts Polychromasia Acanthocytes (Spur) Sodium Potassium Chloride Carbon Dioxide Anion Gap BUN Creatinine Est Cr Clr Drug Dosing Est GFR ( Amer) Est GFR (Non-Af Amer) BUN/Creatinine Ratio Glucose Calcium Magnesium Total Bilirubin Direct Bilirubin AST ALT Alkaline Phosphatase Total Protein Albumin Urine Color Urine Appearance Urine pH Ur Specific [place] Urine Protein Urine Glucose (UA) Urine Ketones Urine Blood Urine Nitrite Urine Bilirubin Urine Urobilinogen Ur Leukocyte Esterase Urine WBC (Auto) Urine RBC (Auto) U Hyaline Cast (Auto) U Epithel Cells (Auto) Urine Bacteria (Auto) Digoxin 1.9 Diagnostic Findings echo - EF 15-20% PG Care Time/CCT Total # of Minutes Spent Total Time Spent with Patient: Total time spent is greater than 50% in coordination of care (as documented) at patient's floor/unit and/or counseling patient: Coding Level of Care Code 09625 Subseq Hosp Care Lvl 2 Diagnoses HFrEF (heart failure with reduced ejection fraction) I50.20 Atrial fibrillation with rapid ventricular response I48.91 Elevated LFTs R79.89 Stas's thyroiditis E06.3 Elevated troponin R77.8 Cardiomyopathy I42.9 Anasarca R60.1 Generalized weakness R53.1 Hypertension I10 Hypercholesterolemia E78.00 Rosacea L71.9
[2022-08-22] MEDS: ATORVASTATIN 20 MG TAB PO SCH (21:15)
[2022-08-23 07:50] LABS: Albumin Globulin Ratio 1.2 (0.9-2); Albumin Level 2.8 gm/dl (3.4-5.0); BUN Creatinine Ratio 29.5 (10-20); Bilirubin,Total 1.4 mg/dl (0.2-1.0); Creatinine Clr Calc Pharmacy 56.9 ml/min; Est GFR (African American) 56.8 ml/min; Globulin 2.3 gm/dl (2.5-4.0); Total Protein 5.1 gm/dl (6.0-8.3)
[2022-08-23] MEDS: LEVOTHYROXINE SODIUM 100 MCG TABLET PO SCH (09:30)
[2022-08-23] MEDS: FEXOFENADINE HCL 180 MG TAB PO SCH (09:30)
[2022-08-23] MEDS: SPIRONOLACTONE 25 MG TAB PO SCH (09:33)
--- NOTE | 2022-08-23 09:34 | Cardiology Progress Note ---
Date of Service August 23, 2022 Assessment & Plan (1) Acute on chronic HFrEF (heart failure with reduced ejection fraction): Plan: -improving on Lasix 40 mg IV b.i.d.. -decompensation may have been secondary to rapid atrial fibrillation. -continue Entresto, Aldactone, and metoprolol tartrate. -would convert metoprolol to the succinate preparation at time of discharge. -consider SGLT2 inhibitor. (2) Atrial fibrillation with rapid ventricular response: Plan: -rate now adequately controlled. -continue Eliquis 5 mg b.i.d. (3) Cardiomyopathy: Plan: -suspect this may be tachycardic induced. -medical management as outlined above. (4) Mitral and aortic regurgitation: Plan: -mild aortic insufficiency on current echocardiogram. -mild to moderate mitral regurgitation on current echocardiogram. (5) Elevated troponin: Plan: -likely a supply demand mismatch at time of presentation. -do not suspect an acute coronary syndrome. (6) Hypertension: Plan: -adequate control on current regimen. Admission and Anticipated Discharge Date Admission Date: August 21, 2022 Subjective The patient is resting comfortably in bed without complaints of chest pain, dyspnea, or palpitations. Physical Exam Physical Exam: In general is well-developed well-nourished white female no acute distress. HEENT exam is negative. Neck is supple with full carotid upstrokes. No carotid bruits. Jugular venous pressure is flat at 90. There is no thyromegaly. Cardiovascular exam reveals irregular irregular rhythm with distant heart sounds. No obvious murmurs. No S3. Lungs note decreased breath sounds at the bases but no rales, rhonchi, or wheezes. Abdomen is obese without bruits. Extremities reveal 1 to 2+ pretibial edema bilaterally. Pretibial regions are erythematous. Results & Data ([facility]) Vital Signs (Past 12 Hours) Vital Signs Temp Pulse Pulse Resp BP Pulse Ox O2 Del Method 08/23/22 07:10 36.7 C 76 20 108/69 94 Room Air 08/23/22 04:00 37.0 C 80 18 131/85 96 Room Air 08/22/22 23:35 Room Air 08/22/22 23:00 36.4 C L 112 H 16 111/60 95 Room Air Diagnostic Findings desk monitor notes rate controlled atrial fibrillation. PG Care Time/CCT Total # of Minutes Spent Total Time Spent with Patient: Total time spent is greater than 50% in coordination of care (as documented) at patient's floor/unit and/or counseling patient: Coding Level of Care Code 17825 Subseq Hosp Care Lvl 3 Diagnoses Acute on chronic HFrEF (heart failure with reduced ejection fraction) I50.23 Atrial fibrillation with rapid ventricular response I48.91 Cardiomyopathy I42.9 Mitral and aortic regurgitation I08.0 Elevated troponin R77.8 Hypertension I10
[2022-08-23] MEDS: VALSARTAN/SACUBITRIL 26/24MG TAB PO SCH ×2 (09:35→20:42)
[2022-08-23] MEDS: METOPROLOL TARTRATE 50 MG TAB PO SCH ×2 (09:35→20:42)
[2022-08-23] MEDS: APIXABAN 5 MG TABLET PO SCH ×2 (09:37→20:42)
[2022-08-23] MEDS: ASPIRIN 81 MG ECTAB PO SCH (09:37)
[2022-08-23] MEDS: FUROSEMIDE 40 MG/4 ML VIAL IV SCH ×2 (09:38→20:42)
[2022-08-23] MEDS: metroNIDAZOLE 0.75% TOPICAL GEL 45 GM TUBE TOP SCH ×2 (09:40→20:42)
[2022-08-23] MEDS: ATORVASTATIN 20 MG TAB PO SCH (20:42)
[2022-08-24] MEDS: LEVOTHYROXINE SODIUM 100 MCG TABLET PO SCH (06:28)
[2022-08-24 07:11] LABS: Creatinine Clr Calc Pharmacy 60.7 ml/min; Est GFR (African American) 65.2 ml/min; Est GFR (Non-African American) 56.2 ml/min; Magnesium 1.6 mg/dl (1.7-2.4); Potassium 3.5 mmol/L (3.5-5.1)
--- NOTE | 2022-08-24 08:35 | Hospitalist Progress Note ---
Date of Service August 23, 2022 Assessment & Plan (1) HFrEF (heart failure with reduced ejection fraction): Plan: Acute on chronic HFrEF Volume status slowly improving with diuresis Echo in 06/15 and this admission both with EF 15-20% Either tachy-arrhythmia induced or due to ischemia (has wall motion abnormalities) or both Cont IV lasix BID Cont metoprolol 50mg BID Defer to cardiology about whether to cont PO digoxin for a.fib rate control Cont Entresto twice daily Daily weights, daily BMP, etc. Fluid restrict to 1500cc/day Salt restrict May need heart cath later this admission to r/o ischemia/CAD (2) Atrial fibrillation with rapid ventricular response: Plan: Rates improved with addition of IV digoxin to her metoprolol Defer to cards about PO digoxin Cont telemetry Cont Eliquis (3) Elevated LFTs: Plan: likely due to passive hepatic congestion from decompensated CHF trend LFTs - repeat in 48 hours (4) Stas's thyroiditis: Plan: decompensated. This will contribute to her CHF issues as well. TSH 41. FT4 very low. Patient reports compliance with levothyroxine 75 mcg. gut wall edema inhibiting absorption? increased levothyroxine to 100 mcg daily and repeat TSH in 6 weeks. this could be contributing to "electric shock feeling" in feet check a b12 level this admission (5) Elevated troponin: Plan: Likely Myocardial demand ischemia in setting of decompensated CHF and rapid a.fib. No symptoms of ACS. With that said may need heart cath to r/o CAD - defer timing to cardiology. (6) Cardiomyopathy: Plan: 2nd to chronic, uncontrolled a.fib (suspected). Can't fully r/o CAD/ischemia. See above. (7) Anasarca: Plan: 2nd to severe, decompensated CHF. (8) Generalized weakness: Plan: 2nd to advanced cardiac disease. cont PT/OT. (9) Hypertension: Plan: controlled (10) Hypercholesterolemia: Plan: Continue atorvastatin 20 mg. Trend LFTs. (11) Rosacea: Plan: Continue metronidazole gel. Plan PT, OT slow,steady progress appreciate cardiology assistance Admission and Anticipated Discharge Date Admission Date: August 21, 2022 Subjective tele - a.fib, rates <100 edema modestly better dyspnea improved she feels better overall she c/o "electric feeling" in feet no new issues Review of Systems Review of Systems: gen - no fevers; eating ok cv - no cp pulm - no cough GI - no abd pain, nausea, emesis; flank edema/body-wall edema still present Physical Exam Physical Exam: gen - NAD, looks good today neck - even sitting upright 90 degrees still with noticeable JVD mouth - MMM heart - irregularly irregular, s1 s2, regular rate, no murmur lungs - diffuse rales >1/2 way up back, L>R; decreased BS right base abd - body wall edema flanks b/l; BS+, liver edge palpable ext - extensive edema all the way up to the thighs - slightly better today; pulses 2+ b/l skin - venous stasis changes b/l shins w/o cellulitis psych - a/o x 3 Results & Data Results & Data ([facility]) Vital Signs (Past 12 Hours) Vital Signs Temp Pulse Resp BP Pulse Ox O2 Del Method 08/24/22 07:39 36.8 C 84 18 129/71 92 Room Air 08/24/22 02:49 36.7 C 80 18 112/64 94 Room Air 08/23/22 22:00 36.4 C L 83 16 115/65 93 Room Air Laboratory Results BMP wnl including creatinine PG Care Time/CCT Total # of Minutes Spent Total Time Spent with Patient: Total time spent is greater than 50% in coordination of care (as documented) at patient's floor/unit and/or counseling patient: Coding Level of Care Code 03933 Subseq Hosp Care Lvl 2 Diagnoses HFrEF (heart failure with reduced ejection fraction) I50.20 Atrial fibrillation with rapid ventricular response I48.91 Elevated LFTs R79.89 Stas's thyroiditis E06.3 Elevated troponin R77.8 Cardiomyopathy I42.9 Anasarca R60.1 Generalized weakness R53.1 Hypertension I10 Hypercholesterolemia E78.00 Rosacea L71.9
[2022-08-24] MEDS: METOPROLOL TARTRATE 50 MG TAB PO SCH ×2 (09:07→20:20)
[2022-08-24] MEDS: MAGNESIUM SULFATE / D5W 1 GM/100 ML BAG IV SCH ×2 (09:07→10:40)
[2022-08-24] MEDS: VALSARTAN/SACUBITRIL 26/24MG TAB PO SCH ×2 (09:07→20:20)
[2022-08-24] MEDS: APIXABAN 5 MG TABLET PO SCH ×2 (09:07→20:20)
[2022-08-24] MEDS: FEXOFENADINE HCL 180 MG TAB PO SCH (09:07)
[2022-08-24] MEDS: FUROSEMIDE 40 MG/4 ML VIAL IV SCH ×2 (09:08→16:40)
[2022-08-24] MEDS: metroNIDAZOLE 0.75% TOPICAL GEL 45 GM TUBE TOP SCH ×2 (09:08→20:21)
[2022-08-24] MEDS: SPIRONOLACTONE 25 MG TAB PO SCH (09:08)
[2022-08-24] MEDS: ASPIRIN 81 MG ECTAB PO SCH (09:08)
[2022-08-24] MEDS ORDERED: POTASSIUM CHLORIDE CRTAB 20 MEQ TABCR PO STA (17:04)
[2022-08-24] MEDS ORDERED: METOPROLOL TARTRATE 50 MG TAB PO STA (17:34)
[2022-08-24] MEDS ORDERED: MAGNESIUM SULFATE / D5W 1 GM/100 ML BAG IV ONE (17:45)
[2022-08-24] MEDS: ATORVASTATIN 20 MG TAB PO SCH (20:20)
--- NOTE | 2022-08-24 23:05 | Hospitalist Progress Note ---
Date of Service August 24, 2022 Assessment & Plan (1) HFrEF (heart failure with reduced ejection fraction): Plan: Acute on chronic HFrEF Volume status cont to improve Echo in 06/15 and this admission both with EF 15-20% Either tachy-arrhythmia induced or due to ischemia (has wall motion abnormalities) or both Cont IV lasix BID - no change Cont metoprolol 50mg BID Defer to cardiology about whether to cont PO digoxin for a.fib rate control Cont Entresto twice daily Cont aldactone 25mg daily Daily weights, daily BMP, etc. Fluid restrict to 1500cc/day Salt restrict May need heart cath later this admission to r/o ischemia/CAD Check BMP am (2) Atrial fibrillation with rapid ventricular response: Plan: Rates improved with addition of IV digoxin to her metoprolol earlier this week b ut having episodes of RVR Consider PO digoxin ongoing Cont metoprolol Cont telemetry Cont Eliquis (3) Elevated LFTs: Plan: likely due to passive hepatic congestion from decompensated CHF repeat LFTs am (4) Stas's thyroiditis: Plan: decompensated. This will contribute to her CHF issues as well. TSH 41. FT4 very low. Patient reports compliance with levothyroxine 75 mcg. gut wall edema inhibiting absorption? increased levothyroxine to 100 mcg daily and repeat TSH in 6 weeks. this could be contributing to "electric shock feeling" in feet check a b12 level in am (5) Elevated troponin: Plan: Likely Myocardial demand ischemia in setting of decompensated CHF and rapid a.fib. No symptoms of ACS. With that said may need heart cath to r/o CAD - defer timing to cardiology. (6) Cardiomyopathy: Plan: 2nd to chronic, uncontrolled a.fib (suspected). Can't fully r/o CAD/ischemia. See above. (7) Anasarca: Plan: 2nd to severe, decompensated CHF. improving slowly w/ diuresis. (8) Generalized weakness: Plan: 2nd to advanced cardiac disease. cont PT/OT. (9) Hypertension: Plan: controlled (10) Hypercholesterolemia: Plan: Continue atorvastatin 20 mg. Recheck LFTs am. (11) Rosacea: Plan: Continue metronidazole gel. (12) Cellulitis and abscess of lower extremity: Plan: b/l feet/shins. may be contributing to her LE complaints. add keflex with doxy PO. serial exams. elevate legs when in bed. (13) Hypomagnesemia: Plan: IV mag sulfate today repeat mag level AM Plan cont PT, OT Admission and Anticipated Discharge Date Admission Date: August 21, 2022 Subjective tele - a.fib, most times rates are <100 some episodes of >100 to 120-130 she overall feels better only complaint is the ongoing "electric" feeling in b/l feet, worse with weight- bearing and walking edema in legs ongoing but improved less flank body-wall edema as well Review of Systems Review of Systems: gen - no fevers cv - no orthopnea, no cp pulm - no dyspnea at rest GI - no nausea/emesis Physical Exam Physical Exam: gen - NAD, lying in bed comfortably neck - ongoing JVD mouth - MMM heart - irregularly irregular, s1 s2, regular rate, no murmur lungs - diffuse rales b/l - slightly improved today; decreased BS right base abd - body wall edema flanks b/l but improved; softer; BS+, NT ext - extensive edema all the way up to the thighs - slightly better again today; pulses 2+ b/l skin - venous stasis changes b/l shins and feet; there is worsening warmth of these erythematous skin regions psych - a/o x 3 Results & Data Results & Data ([facility]) Vital Signs (Past 12 Hours) Vital Signs Temp Pulse Resp BP Pulse Ox O2 Del Method 08/24/22 19:00 36.5 C 88 18 106/60 92 Room Air 08/24/22 15:32 36.9 C 82 16 108/61 92 Room Air 08/24/22 12:00 37.1 C 86 16 99/61 L 92 Room Air Laboratory Results Laboratory Results - last 24 hr 08/24/22 05:55 Sodium 139 Potassium 3.5 Chloride 102 Carbon Dioxide 30 Anion Gap 7 BUN 27 H Creatinine 1.00 Est Cr Clr Drug Dosing 60.7 Est GFR ( Amer) 65.2 Est GFR (Non-Af Amer) 56.2 BUN/Creatinine Ratio 27.0 H Glucose 85 Calcium 8.0 L Magnesium 1.6 L PG Care Time/CCT Total # of Minutes Spent Total Time Spent with Patient: Total time spent is greater than 50% in coordination of care (as documented) at patient's floor/unit and/or counseling patient: Coding Level of Care Code 03955 Subseq Hosp Care Lvl 2 Diagnoses HFrEF (heart failure with reduced ejection fraction) I50.20 Atrial fibrillation with rapid ventricular response I48.91 Elevated LFTs R79.89 Stas's thyroiditis E06.3 Elevated troponin R77.8 Cardiomyopathy I42.9 Anasarca R60.1 Generalized weakness R53.1 Hypertension I10 Hypercholesterolemia E78.00 Rosacea L71.9 Cellulitis and abscess of lower extremity L03.119; L02.419 Hypomagnesemia E83.42
[2022-08-25] MEDS: LEVOTHYROXINE SODIUM 100 MCG TABLET PO SCH (05:04)
[2022-08-25 07:01] LABS: BUN Creatinine Ratio 28.6 (10-20); Bilirubin Direct 0.4 mg/dl (0-0.2); Bilirubin,Total 1.2 mg/dl (0.2-1.0); Creatinine Clr Calc Pharmacy 77.6 ml/min; Est GFR (African American) 89.4 ml/min; Est GFR (Non-African American) 77.1 ml/min; Potassium 3.6 mmol/L (3.5-5.1); Total Protein 5.5 gm/dl (6.0-8.3)
[2022-08-25] MEDS: cephALEXin 500 MG CAP PO SCH ×3 (09:05→20:18)
[2022-08-25] MEDS: DOXYCYCLINE HYCLATE 100 MG CAP PO SCH ×2 (09:05→20:18)
[2022-08-25] MEDS: SPIRONOLACTONE 25 MG TAB PO SCH (09:05)
[2022-08-25] MEDS: APIXABAN 5 MG TABLET PO SCH ×2 (09:06→20:20)
[2022-08-25] MEDS: ASPIRIN 81 MG ECTAB PO SCH (09:06)
[2022-08-25] MEDS: FUROSEMIDE 40 MG/4 ML VIAL IV SCH ×2 (09:06→17:05)
[2022-08-25] MEDS: FEXOFENADINE HCL 180 MG TAB PO SCH (09:06)
[2022-08-25] MEDS: VALSARTAN/SACUBITRIL 26/24MG TAB PO SCH ×2 (09:06→20:20)
[2022-08-25] MEDS: metroNIDAZOLE 0.75% TOPICAL GEL 45 GM TUBE TOP SCH ×2 (09:07→20:19)
[2022-08-25] MEDS: CYANOCOBALAMIN (B-12) 500 MCG TABLET PO SCH (09:41)
[2022-08-25] MEDS: POTASSIUM CHLORIDE CRTAB 20 MEQ TABCR PO SCH ×2 (09:41→20:19)
[2022-08-25] MEDS: METOPROLOL TARTRATE 50 MG TAB PO SCH ×2 (11:52→20:18)
[2022-08-25] MEDS ORDERED: METOPROLOL TARTRATE 50 MG TAB PO PRN (16:49)
[2022-08-25] MEDS: ATORVASTATIN 20 MG TAB PO SCH (20:19)
--- NOTE | 2022-08-25 21:22 | Hospitalist Progress Note ---
Date of Service August 25, 2022 Assessment & Plan (1) HFrEF (heart failure with reduced ejection fraction): Plan: Acute on chronic HFrEF - MUCH improved. Volume status cont to improve; has lost 10+ kg of weight since admission. Echo in 06/15 and this admission both with EF 15-20% Either tachy-arrhythmia induced or due to ischemia (has wall motion abnormalities) or both Cont IV lasix BID Cont metoprolol 50mg BID Defer to cardiology about whether to cont PO digoxin for a.fib rate control Cont Entresto twice daily Cont aldactone 25mg daily Daily weights, daily BMP, etc. Fluid restrict to 1500cc/day Salt restrict May need heart cath later this admission to r/o ischemia/CAD Check BMP and mag in am (2) Atrial fibrillation with rapid ventricular response: Plan: Rates improved with addition of IV digoxin to her metoprolol earlier this week but having episodes of RVR Consider PO digoxin ongoing or increase her metoprolol to 75mg BID Cont telemetry Cont Eliquis (3) Elevated LFTs: Plan: likely due to passive hepatic congestion from decompensated CHF repeat LFTs today improved (4) Stas's thyroiditis: Plan: decompensated. This will contribute to her CHF issues as well. TSH 41. FT4 very low. Patient reports compliance with levothyroxine 75 mcg. gut wall edema inhibiting absorption? increased levothyroxine to 100 mcg daily and repeat TSH in 6 weeks. this could be contributing to "electric shock feeling" in feet (5) Elevated troponin: Plan: Likely Myocardial demand ischemia in setting of decompensated CHF and rapid a.fib. No symptoms of ACS. With that said may need heart cath to r/o CAD - defer timing to cardiology - later in the admission? (6) Cardiomyopathy: Plan: 2nd to chronic, uncontrolled a.fib (suspected). Can't fully r/o CAD/ischemia. See above. (7) Anasarca: Plan: 2nd to severe, decompensated CHF. improving (8) Generalized weakness: Plan: 2nd to advanced cardiac disease. cont PT/OT. (9) Hypertension: Plan: controlled (10) Hypercholesterolemia: Plan: Continue atorvastatin 20 mg. LFTs today stable/improved. (11) Rosacea: Plan: Continue metronidazole gel. (12) Cellulitis and abscess of lower extremity: Plan: b/l feet/shins. may be contributing to her LE complaints. cont keflex. cont doxycycline. (13) Hypomagnesemia: Plan: repleted resolved repeat level am (14) Vitamin B12 deficiency: Plan: start B12 supplement - 1000mcg daily could be contributing to discomfort in feet Plan cont PT, OT progressing Admission and Anticipated Discharge Date Admission Date: August 21, 2022 Subjective tele overnight - a.fib, rates controlled occasional periods of rates >100 patient continues to improve with her breathing and her LE edema only complaint is the "electric" feeling in her feet she went down the hallway and visited with her mother no new issues Review of Systems Review of Systems: gen - feeling better each day cv - no orthopnea pulm - no dyspnea GI - no nausea/emesis Physical Exam Physical Exam: gen - NAD, lying in bed comfortably neck - ongoing JVD but slightly better mouth - MMM heart - irregularly irregular, s1 s2, regular rate, no murmur lungs - diffuse rales b/l L>R but improved from prior exams abd - body wall edema flanks b/l but improved; softer; BS+, NT ext - extensive edema all the way up to the thighs - again better today; pulses 2+ b/l skin - venous stasis changes b/l shins and feet; ?cellulitis b/l feet and shins appears improved today psych - a/o x 3 Results & Data Results & Data ([facility]) Vital Signs (Past 12 Hours) Vital Signs Temp Pulse Pulse Resp BP Pulse Ox O2 Del Method 08/25/22 20:15 36.6 C 95 H 17 125/82 96 Room Air 08/25/22 15:58 36.6 C 86 16 149/71 H 93 Room Air 08/25/22 11:12 36.5 C 93 H 16 99/63 L 92 Room Air Laboratory Results Laboratory Results - last 24 hr 08/25/22 08/25/22 05:38 05:38 Sodium 138 Potassium 3.6 Chloride 101 Carbon Dioxide 30 Anion Gap 7 BUN 22 Creatinine 0.77 Est Cr Clr Drug Dosing 77.6 Est GFR ( Amer) 89.4 Est GFR (Non-Af Amer) 77.1 BUN/Creatinine Ratio 28.6 H Glucose 105 H Calcium 8.0 L Magnesium 2.0 Total Bilirubin 1.2 H Direct Bilirubin 0.4 H AST 20 ALT 19 Alkaline Phosphatase 137 H Total Protein 5.5 L Albumin 3.0 L Vitamin B12 284 PG Care Time/CCT Total # of Minutes Spent Total Time Spent with Patient: Total time spent is greater than 50% in coordination of care (as documented) at patient's floor/unit and/or counseling patient: Coding Level of Care Code 07774 Subseq Hosp Care Lvl 2 Diagnoses HFrEF (heart failure with reduced ejection fraction) I50.20 Atrial fibrillation with rapid ventricular response I48.91 Elevated LFTs R79.89 Stas's thyroiditis E06.3 Elevated troponin R77.8 Cardiomyopathy I42.9 Anasarca R60.1 Generalized weakness R53.1 Hypertension I10 Hypercholesterolemia E78.00 Rosacea L71.9 Cellulitis and abscess of lower extremity L03.119; L02.419 Hypomagnesemia E83.42 Vitamin B12 deficiency E53.8
[2022-08-26] MEDS: LEVOTHYROXINE SODIUM 100 MCG TABLET PO SCH (05:09)
[2022-08-26 07:30] LABS: BUN Creatinine Ratio 28.4 (10-20); Creatinine Clr Calc Pharmacy 79.1 ml/min; Est GFR (African American) 93.8 ml/min; Est GFR (Non-African American) 80.9 ml/min; Magnesium 1.8 mg/dl (1.7-2.4); Potassium 3.6 mmol/L (3.5-5.1)
[2022-08-26] MEDS: DOXYCYCLINE HYCLATE 100 MG CAP PO SCH ×2 (08:01→20:50)
[2022-08-26] MEDS: VALSARTAN/SACUBITRIL 26/24MG TAB PO SCH ×2 (08:02→20:50)
[2022-08-26] MEDS: SPIRONOLACTONE 25 MG TAB PO SCH (08:02)
[2022-08-26] MEDS: POTASSIUM CHLORIDE CRTAB 20 MEQ TABCR PO SCH ×2 (08:02→20:46)
[2022-08-26] MEDS: CYANOCOBALAMIN (B-12) 500 MCG TABLET PO SCH (08:02)
[2022-08-26] MEDS: ASPIRIN 81 MG ECTAB PO SCH (08:02)
[2022-08-26] MEDS: cephALEXin 500 MG CAP PO SCH ×3 (08:03→20:45)
[2022-08-26] MEDS: FEXOFENADINE HCL 180 MG TAB PO SCH (08:03)
[2022-08-26] MEDS: APIXABAN 5 MG TABLET PO SCH ×2 (08:03→20:50)
[2022-08-26] MEDS: FUROSEMIDE 40 MG/4 ML VIAL IV SCH ×2 (08:03→16:49)
[2022-08-26] MEDS: metroNIDAZOLE 0.75% TOPICAL GEL 45 GM TUBE TOP SCH ×2 (08:05→20:45)
[2022-08-26] MEDS: MAGNESIUM CHLORIDE W/CALCIUM 64MG DELAYED REL TAB PO SCH (09:02)
[2022-08-26] MEDS: METOPROLOL TARTRATE 25 MG TAB PO SCH ×2 (09:02→20:49)
[2022-08-26] MEDS ORDERED: DIGOXIN 0.125 MG TAB PO ONE (10:47)
[2022-08-26] MEDS: ATORVASTATIN 20 MG TAB PO SCH (20:51)
--- NOTE | 2022-08-26 20:57 | Hospitalist Progress Note ---
Date of Service August 26, 2022 Assessment & Plan (1) HFrEF (heart failure with reduced ejection fraction): Plan: Acute on chronic HFrEF - MUCH improved. Weight down considerably since admission. She is feeling better. Echo in 06/15 and this admission both with EF 15-20% Either tachy-arrhythmia induced or due to ischemia (has wall motion abnormalities) or both Cont IV lasix BID Cont metoprolol but increase to 75mg BID due to poor a.fib rate control Add digoxin 0.125mg daily for a.fib rate control Cont Entresto twice daily Cont aldactone 25mg daily Daily weights, daily BMP, etc. Fluid restrict to 1500cc/day Salt restrict May need heart cath later this admission to r/o ischemia/CAD Check BMP am (2) Atrial fibrillation with rapid ventricular response: Plan: Rates improved with addition of IV digoxin to her metoprolol earlier this week but having continued episodes of RVR Thus, add PO digoxin 0.125mg daily and increase metoprolol to 75mg BID Cont telemetry Cont Eliquis (3) Elevated LFTs: Plan: due to passive hepatic congestion from decompensated CHF repeat LFTs 08/25 improved repeat the LFTs again in 2-3 days for stability (4) Stas's thyroiditis: Plan: decompensated. This will contribute to her CHF issues as well. TSH 41. FT4 very low. Patient reports compliance with levothyroxine 75 mcg. gut wall edema inhibiting absorption? increased levothyroxine to 100 mcg daily and repeat TSH in 6 weeks. this could be contributing to "electric shock feeling" in feet (5) Elevated troponin: Plan: Likely Myocardial demand ischemia in setting of decompensated CHF and rapid a.fib. No symptoms of ACS. With that said may need heart cath to r/o CAD - defer timing to cardiology - later in the admission? (6) Cardiomyopathy: Plan: 2nd to chronic, uncontrolled a.fib (suspected). Can't fully r/o CAD/ischemia. See above. (7) Anasarca: Plan: 2nd to severe, decompensated CHF. improving nicely. (8) Generalized weakness: Plan: 2nd to advanced cardiac disease. cont PT/OT. (9) Hypertension: Plan: controlled (10) Hypercholesterolemia: Plan: Continue atorvastatin 20 mg. LFTs today stable/improved. (11) Rosacea: Plan: Continue metronidazole gel. (12) Cellulitis and abscess of lower extremity: Plan: b/l feet/shins. may be contributing to her LE complaints. IMPROVED today. cont keflex. cont doxycycline. (13) Hypomagnesemia: Plan: repleted resolved repeat level today wnl (14) Vitamin B12 deficiency: Plan: cont B12 supplement 1000mcg daily could be contributing to discomfort in feet Plan cont PT, OT progressing nicely will speak to cardiology tomorrow re: a.fib rate control Admission and Anticipated Discharge Date Admission Date: August 21, 2022 Subjective patient without any new complaints feet less uncomfortable as her edema improves redness also better eating well dyspnea improved tele - a.fib rates still >100 with minimal activity (up to 140s or higher) Review of Systems Review of Systems: cv - no orthopnea or cp; no palpitations pulm - no cough GI - no pain Physical Exam Physical Exam: gen - NAD neck - JVD continues to improve but still present mouth - MMM heart - irregularly irregular, s1 s2, regular rate, no murmur lungs - diffuse rales b/l L>R; right base particularly improved abd - body wall edema flanks b/l but improved; soft, NT, BS+, no HSM ext - pulses 2+ b/l; edema of legs from feet to thighs skin - venous stasis changes b/l shins and feet; ?cellulitis b/l feet and shins again appears improved today with less erythema and less warmth psych - a/o x 3 Results & Data Results & Data ([facility]) Vital Signs (Past 12 Hours) Vital Signs Temp Pulse Pulse Resp BP Pulse Ox O2 Del Method 08/26/22 20:48 88 111/56 L 08/26/22 18:57 36.7 C 100 H 18 102/62 96 Room Air 08/26/22 16:03 37 C 78 18 135/60 97 Room Air 08/26/22 12:12 37.1 C 95 H 18 102/66 93 Room Air 08/26/22 11:22 73 Laboratory Results Laboratory Results - last 24 hr 08/26/22 06:34 Sodium 140 Potassium 3.6 Chloride 101 Carbon Dioxide 32 Anion Gap 7 BUN 21 Creatinine 0.74 Est Cr Clr Drug Dosing 79.1 Est GFR ( Amer) 93.8 Est GFR (Non-Af Amer) 80.9 BUN/Creatinine Ratio 28.4 H Glucose 102 H Calcium 8.0 L Magnesium 1.8 PG Care Time/CCT Total # of Minutes Spent Total Time Spent with Patient: Total time spent is greater than 50% in coordination of care (as documented) at patient's floor/unit and/or counseling patient: Coding Level of Care Code 08524 Subseq Hosp Care Lvl 2 Diagnoses HFrEF (heart failure with reduced ejection fraction) I50.20 Atrial fibrillation with rapid ventricular response I48.91 Elevated LFTs R79.89 Stas's thyroiditis E06.3 Elevated troponin R77.8 Cardiomyopathy I42.9 Anasarca R60.1 Generalized weakness R53.1 Hypertension I10 Hypercholesterolemia E78.00 Rosacea L71.9 Cellulitis and abscess of lower extremity L03.119; L02.419 Hypomagnesemia E83.42 Vitamin B12 deficiency E53.8
[2022-08-27] MEDS: LEVOTHYROXINE SODIUM 100 MCG TABLET PO SCH (06:11)
[2022-08-27 07:25] LABS: BUN Creatinine Ratio 26.1 (10-20); Creatinine Clr Calc Pharmacy 66.7 ml/min; Est GFR (African American) 76.1 ml/min; Est GFR (Non-African American) 65.6 ml/min; Potassium 3.9 mmol/L (3.5-5.1)
[2022-08-27] MEDS: cephALEXin 500 MG CAP PO SCH ×3 (09:45→20:13)
[2022-08-27] MEDS: SPIRONOLACTONE 25 MG TAB PO SCH (09:45)
[2022-08-27] MEDS: FUROSEMIDE 40 MG/4 ML VIAL IV SCH ×2 (09:45→17:10)
[2022-08-27] MEDS: ASPIRIN 81 MG ECTAB PO SCH (09:45)
[2022-08-27] MEDS: FEXOFENADINE HCL 180 MG TAB PO SCH (09:45)
[2022-08-27] MEDS: CYANOCOBALAMIN (B-12) 500 MCG TABLET PO SCH (09:46)
[2022-08-27] MEDS: DOXYCYCLINE HYCLATE 100 MG CAP PO SCH ×2 (09:46→20:13)
[2022-08-27] MEDS: APIXABAN 5 MG TABLET PO SCH ×2 (09:46→20:17)
[2022-08-27] MEDS: VALSARTAN/SACUBITRIL 26/24MG TAB PO SCH ×2 (09:46→20:13)
[2022-08-27] MEDS: METOPROLOL TARTRATE 25 MG TAB PO SCH ×2 (09:46→20:14)
[2022-08-27] MEDS: MAGNESIUM CHLORIDE W/CALCIUM 64MG DELAYED REL TAB PO SCH (09:46)
[2022-08-27] MEDS: POTASSIUM CHLORIDE CRTAB 20 MEQ TABCR PO SCH ×2 (09:46→20:14)
[2022-08-27] MEDS: metroNIDAZOLE 0.75% TOPICAL GEL 45 GM TUBE TOP SCH ×2 (09:47→20:14)
[2022-08-27] MEDS: ACETAMINOPHEN 325 MG TAB PO PRN (09:58)
[2022-08-27] MEDS: DIGOXIN 0.125 MG TAB PO SCH (17:10)
--- NOTE | 2022-08-27 17:26 | Cardiology Progress Note ---
Date of Service August 27, 2022 Assessment & Plan (1) Acute on chronic HFrEF (heart failure with reduced ejection fraction): Plan: She continues to diurese well. Still element of volume overload. Continuing daily Lasix. Monitoring mitral lytes and renal function closely. (2) Atrial fibrillation with rapid ventricular response: Plan: Overall rate control seems reasonable. There was some concern about higher rates with activity, but some of the higher rates on the telemetry appear to be artifactual. I think we can monitor this more closely while she is hospitalized. Will check a digoxin level tomorrow. We still have room to increase metoprolol. (3) Cardiomyopathy: Plan: On metoprolol succinate, spironolactone and Entresto. Jardiance is being considered. Perhaps waiting to see if adequate rate control improved LV function is worthwhile. (4) Mitral and aortic regurgitation: Plan: -mild aortic insufficiency on current echocardiogram. -mild to moderate mitral regurgitation on current echocardiogram. (5) Elevated troponin: Plan: -likely a supply demand mismatch at time of presentation. -do not suspect an acute coronary syndrome. (6) Hypertension: Plan: -adequate control on current regimen. Low blood pressure at times. Admission and Anticipated Discharge Date Admission Date: August 21, 2022 Subjective This afternoon the patient claimed he feeling well. She states she still has some difficulty with ambulation due to the edema in her legs, but denies dizziness or lightheadedness. No significant breathing trouble. No sense of palpitation. Review of Systems Review of Systems: Per HPI Physical Exam Physical Exam: Gen.: No acute distress. Alert and oriented. HEENT: Anicteric sclera. Cardiac: Irregularly irregular rhythm. Pulmonary: Normal respiratory effort Extremities: 2+ radial pulses bilaterally. 2+ posterior tibialis pulses bilaterally. 3+ tense bilateral pitting edema of the lower extremities up to the knees and 2+ from the knees to the hips. No cyanosis. Psychiatric: Affect appears appropriate. She answers all questions appropriately Results & Data ([facility]) Vital Signs (Past 12 Hours) Vital Signs Temp Pulse Pulse Pulse Resp BP Pulse Ox 08/27/22 17:10 80 08/27/22 15:27 36.8 C 79 20 120/70 93 08/27/22 11:50 36.7 C 84 18 91/55 L 95 08/27/22 07:55 37.2 C 57 L 20 98/66 L 92 O2 Del Method 08/27/22 17:10 08/27/22 15:27 Room Air 08/27/22 11:50 Room Air 08/27/22 07:55 Room Air Laboratory Results Abnormal Lab Results 08/27/22 06:29 Sodium 140 Potassium 3.9 Chloride 100 Carbon Dioxide 34 H Anion Gap 6 BUN 23 Creatinine 0.88 Est Cr Clr Drug Dosing 66.7 Est GFR ( Amer) 76.1 Est GFR (Non-Af Amer) 65.6 BUN/Creatinine Ratio 26.1 H Glucose 107 H Calcium 8.0 L PG Care Time/CCT Total # of Minutes Spent Total Time Spent with Patient: Total time spent is greater than 50% in coordination of care (as documented) at patient's floor/unit and/or counseling patient: Coding Level of Care Code 68859 Subseq Hosp Care Lvl 2 Diagnoses Acute on chronic HFrEF (heart failure with reduced ejection fraction) I50.23 Atrial fibrillation with rapid ventricular response I48.91 Cardiomyopathy I42.9 Mitral and aortic regurgitation I08.0 Elevated troponin R77.8 Hypertension I10
--- NOTE | 2022-08-27 19:57 | Hospitalist Progress Note ---
Date of Service August 27, 2022 Assessment & Plan (1) HFrEF (heart failure with reduced ejection fraction): Plan: Acute on chronic HFrEF - MUCH improved. Weight down considerably since admission. About 20kg weight loss. She is feeling markedly better. Echo in 06/15 and this admission both with EF 15-20% Either tachy-arrhythmia induced or due to ischemia (has wall motion abnormalities) or both Cont IV lasix BID Cont metoprolol 75mg BID - will ultimately need this changed to succinate formulation later in stay. Added digoxin 0.125mg daily for a.fib rate control over the weekend - check dig level am. Cont Entresto twice daily Cont aldactone 25mg daily Daily weights, daily BMP, etc. Fluid restrict to 1500cc/day Salt restrict May need heart cath later this admission to r/o ischemia/CAD contributing to CHF Check BMP am (2) Atrial fibrillation with rapid ventricular response: Plan: Rates improved with addition of IV digoxin to her metoprolol last week but PO digoxin was not started then. Continued episodes of RVR. Thus, added PO digoxin 0.125mg dailyon 08/26/22. Metoprolol tartrate increased to 75mg BID on 08/26/22 as well. Cont Eliquis. Check dig level am. (3) Elevated LFTs: Plan: due to passive hepatic congestion from decompensated CHF repeat LFTs 08/25 improved repeat the LFTs again in 2-3 days for stability (4) Stas's thyroiditis: Plan: decompensated. This will contribute to her CHF issues as well. TSH 41. FT4 very low. Patient reports compliance with levothyroxine 75 mcg. gut wall edema inhibiting absorption? increased levothyroxine to 100 mcg daily and repeat TSH in 6 weeks. this could be contributing to "electric shock feeling" (sounds like neuropathy) in feet (5) Elevated troponin: Plan: Likely Myocardial demand ischemia in setting of decompensated CHF and rapid a.fib. No symptoms of ACS. With that said may need heart cath to r/o CAD - defer timing to cardiology - later in the admission? (6) Cardiomyopathy: Plan: 2nd to chronic, uncontrolled a.fib (suspected). Can't fully r/o CAD/ischemia. See above. (7) Anasarca: Plan: 2nd to severe, decompensated CHF. improving nicely. (8) Generalized weakness: Plan: 2nd to advanced cardiac disease. cont PT/OT. (9) Hypertension: Plan: controlled (10) Hypercholesterolemia: Plan: Continue atorvastatin 20 mg. Most recent LFts stable/improved. (11) Rosacea: Plan: Continue metronidazole gel. (12) Cellulitis and abscess of lower extremity: Plan: b/l feet/shins. may be contributing to her LE complaints. Cont to improve. cont keflex. day #3 of 7. cont doxycycline. day #3 of 7. (13) Hypomagnesemia: Plan: repleted resolved cont slow mag daily repeat level am (14) Vitamin B12 deficiency: Plan: cont B12 supplement 1000mcg daily could be contributing to discomfort in feet (15) Stasis dermatitis of both legs: Plan: start triamcinolone cream 0.1% TID in thin amounts to scaly regions (16) Neuropathy: Plan: her "electric" feeling in feet may be neuropathy her decompensated hypothyroidism, low-normal B12 level, and/or other factors are likely contributing start gabapentin 300mg HS Plan cont PT, OT progressing nicely care d/w Dr Arora from cardiology Admission and Anticipated Discharge Date Admission Date: August 21, 2022 Subjective only complaints are that of ongoing "electric" feeling - primarily in feet also with itchy skin on b/l shins and feet overall edema much better no dyspnea good appetite she continues to visit with her mother who is on comfort care measures tele - a.fib, rates improved with increased BB dose & digoxin Review of Systems Review of Systems: gen - no fatigue, eating ok cv - no orthopnea or cp pulm - no cough or dypsnea GI - moving bowels, no pain, no nausea Physical Exam Physical Exam: gen - NAD neck - JVD continues to improve mouth - MMM heart - irregularly irregular, s1 s2, regular rate, no murmur lungs - rales b/l L>R, improving; no wheezes; no increased work of breathing abd - body wall edema flanks b/l but improved; soft, NT, BS+, no HSM ext - pulses 2+ b/l; edema of legs from feet to thighs still present but improving day to day skin - venous stasis changes b/l shins and feet; ?cellulitis b/l feet and shins again appears improved with less redness & heat; stasis dermatitis distal shins and ankles psych - a/o x 3 Results & Data Results & Data ([facility]) Vital Signs (Past 12 Hours) Vital Signs Temp Pulse Pulse Pulse Resp BP Pulse Ox 08/27/22 19:29 36.8 C 78 20 102/77 97 08/27/22 16:00 91 H 08/27/22 08:00 88 08/27/22 17:10 80 08/27/22 15:27 36.8 C 79 20 120/70 93 08/27/22 11:50 36.7 C 84 18 91/55 L 95 O2 Del Method 08/27/22 19:29 Room Air 08/27/22 16:00 08/27/22 08:00 08/27/22 17:10 08/27/22 15:27 Room Air 08/27/22 11:50 Room Air Laboratory Results Laboratory Results - last 24 hr 08/27/22 06:29 Sodium 140 Potassium 3.9 Chloride 100 Carbon Dioxide 34 H Anion Gap 6 BUN 23 Creatinine 0.88 Est Cr Clr Drug Dosing 66.7 Est GFR ( Amer) 76.1 Est GFR (Non-Af Amer) 65.6 BUN/Creatinine Ratio 26.1 H Glucose 107 H Calcium 8.0 L PG Care Time/CCT Total # of Minutes Spent Total Time Spent with Patient: Total time spent is greater than 50% in coordination of care (as documented) at patient's floor/unit and/or counseling patient: Coding Level of Care Code 88200 Subseq Hosp Care Lvl 3 Diagnoses HFrEF (heart failure with reduced ejection fraction) I50.20 Atrial fibrillation with rapid ventricular response I48.91 Elevated LFTs R79.89 Stas's thyroiditis E06.3 Elevated troponin R77.8 Cardiomyopathy I42.9 Anasarca R60.1 Generalized weakness R53.1 Hypertension I10 Hypercholesterolemia E78.00 Rosacea L71.9 Cellulitis and abscess of lower extremity L03.119; L02.419 Hypomagnesemia E83.42 Vitamin B12 deficiency E53.8 Stasis dermatitis of both legs I87.2 Neuropathy G62.9
[2022-08-27] MEDS: GABAPENTIN 300 MG CAP PO SCH (20:13)
[2022-08-27] MEDS: ATORVASTATIN 20 MG TAB PO SCH (20:13)
[2022-08-27] MEDS: TRIAMCINOLONE ACET 0.1% CR 80 GM TUBE EXT SCH (20:14)
[2022-08-28] MEDS: LEVOTHYROXINE SODIUM 100 MCG TABLET PO SCH (05:24)
[2022-08-28 07:32] LABS: BUN Creatinine Ratio 27.7 (10-20); Calcium 8.4 mg/dl (8.5-10.1); Creatinine Clr Calc Pharmacy 69.3 ml/min; Est GFR (African American) 81.7 ml/min; Est GFR (Non-African American) 70.4 ml/min; Magnesium 1.7 mg/dl (1.7-2.4); Potassium 3.7 mmol/L (3.5-5.1)
[2022-08-28] MEDS: APIXABAN 5 MG TABLET PO SCH ×2 (09:23→20:03)
[2022-08-28] MEDS: FUROSEMIDE 40 MG/4 ML VIAL IV SCH ×2 (09:23→16:27)
[2022-08-28] MEDS: METOPROLOL TARTRATE 25 MG TAB PO SCH ×2 (09:23→20:02)
[2022-08-28] MEDS: DOXYCYCLINE HYCLATE 100 MG CAP PO SCH ×2 (09:23→20:02)
[2022-08-28] MEDS: MAGNESIUM CHLORIDE W/CALCIUM 64MG DELAYED REL TAB PO SCH (09:23)
[2022-08-28] MEDS: cephALEXin 500 MG CAP PO SCH ×3 (09:23→20:03)
[2022-08-28] MEDS: CYANOCOBALAMIN (B-12) 500 MCG TABLET PO SCH (09:23)
[2022-08-28] MEDS: ASPIRIN 81 MG ECTAB PO SCH (09:23)
[2022-08-28] MEDS: FEXOFENADINE HCL 180 MG TAB PO SCH (09:23)
[2022-08-28] MEDS: POTASSIUM CHLORIDE CRTAB 20 MEQ TABCR PO SCH ×2 (09:23→20:02)
[2022-08-28] MEDS: SPIRONOLACTONE 25 MG TAB PO SCH (09:23)
[2022-08-28] MEDS: metroNIDAZOLE 0.75% TOPICAL GEL 45 GM TUBE TOP SCH ×2 (09:24→20:07)
[2022-08-28] MEDS: VALSARTAN/SACUBITRIL 26/24MG TAB PO SCH ×2 (09:24→20:03)
[2022-08-28] MEDS: TRIAMCINOLONE ACET 0.1% CR 80 GM TUBE EXT SCH ×3 (09:24→20:06)
[2022-08-28] MEDS: MAGNESIUM SULFATE / D5W 1 GM/100 ML BAG IV SCH ×2 (10:20→12:07)
--- NOTE | 2022-08-28 11:36 | Cardiology Progress Note ---
Date of Service August 28, 2022 Assessment & Plan (1) Acute on chronic HFrEF (heart failure with reduced ejection fraction): Plan: She continues to diurese well. Still element of volume overload. Continuing daily Lasix. Monitoring mitral lytes and renal function closely. (2) Atrial fibrillation with rapid ventricular response: Plan: Overnight her rate control is quite good. She hovers around 100 beats per minute, mostly last. The bigger question is what her rates will be when she is ambulatory. Will need to monitor her telemetry over the course of the day. Digoxin level seems adequate. Unfortunately, her blood pressures been on the lower side which may limit our ability to increase her metoprolol more. Some of the higher rates noted on her telemetry were simply artifactual. Again, will have a better understanding throughout the course of the day how she has responded to her current medical regimen. (3) Cardiomyopathy: Plan: On metoprolol succinate, spironolactone and Entresto. Jardiance is being considered. Perhaps waiting to see if adequate rate control improved LV function is worthwhile. Volume status continues to improve. She affect a good diuresis and electrolytes and renal function have been stable. (4) Mitral and aortic regurgitation: Plan: -mild aortic insufficiency on current echocardiogram. -mild to moderate mitral regurgitation on current echocardiogram. (5) Elevated troponin: Plan: -likely a supply demand mismatch at time of presentation. -do not suspect an acute coronary syndrome. (6) Hypertension: Plan: -adequate control on current regimen. Low blood pressure at times. Admission and Anticipated Discharge Date Admission Date: August 21, 2022 Subjective This morning patient had no specific complaints. She was tired. She denies any palpitations. No chest pain. No breathing difficulty. Not yet ambulatory today. Review of Systems Review of Systems: Per HPI Physical Exam Physical Exam: Gen.: No acute distress. Alert and oriented. HEENT: Anicteric sclera. Cardiac: Irregularly irregular rhythm. Pulmonary: Normal respiratory effort. Crackles to the mid lung noel. Extremities: 2+ radial pulses bilaterally. 2+ posterior tibialis pulses bilaterally. 3+ tense bilateral pitting edema of the lower extremities up to the knees and 2+ from the knees to the hips. No cyanosis. Psychiatric: Affect appears appropriate. She answers all questions appropriately Results & Data ([facility]) Vital Signs (Past 12 Hours) Vital Signs Temp Pulse Pulse Pulse Resp BP Pulse Ox 10/04/22 10:58 36.4 C L 83 20 87/46 L 95 08/28/22 09:17 90 117/62 08/28/22 07:00 78 08/28/22 07:02 36.6 C 79 19 111/70 95 08/28/22 03:22 36.7 C 72 18 112/74 93 08/27/22 23:36 36.8 C 78 18 113/77 96 O2 Del Method 08/28/22 10:58 Room Air 08/28/22 09:17 08/28/22 07:00 08/28/22 07:02 Room Air 08/28/22 03:22 Room Air 08/27/22 23:36 Room Air Laboratory Results Abnormal Lab Results 08/28/22 08/28/22 06:14 06:14 Sodium 141 Potassium 3.7 Chloride 100 Carbon Dioxide 34 H Anion Gap 7 BUN 23 Creatinine 0.83 Est Cr Clr Drug Dosing 69.3 Est GFR ( Amer) 81.7 Est GFR (Non-Af Amer) 70.4 BUN/Creatinine Ratio 27.7 H Glucose 86 Calcium 8.4 L Magnesium 1.7 Digoxin 1.1 PG Care Time/CCT Total # of Minutes Spent Total Time Spent with Patient: Total time spent is greater than 50% in coordination of care (as documented) at patient's floor/unit and/or counseling patient: Coding Level of Care Code 60626 Subseq Hosp Care Lvl 2 Diagnoses Acute on chronic HFrEF (heart failure with reduced ejection fraction) I50.23 Atrial fibrillation with rapid ventricular response I48.91 Cardiomyopathy I42.9 Mitral and aortic regurgitation I08.0 Elevated troponin R77.8 Hypertension I10
[2022-08-28] MEDS: DIGOXIN 0.125 MG TAB PO SCH (15:17)
--- NOTE | 2022-08-28 17:38 | Hospitalist Progress Note ---
Date of Service August 28, 2022 Assessment & Plan (1) HFrEF (heart failure with reduced ejection fraction): Plan: Acute on chronic HFrEF - MUCH improved. Weight down considerably since admission. About 22kg weight loss. She is feeling markedly better but still has significant edema/anasarca Echo in 06/15 and this admission both with EF 15-20% Either tachy-arrhythmia induced or due to ischemia (has wall motion abnormalities) or both Cont IV lasix 40mg BID Cont metoprolol 75mg BID - will ultimately need this changed to succinate formulation later in stay. Added digoxin 0.125mg daily for a.fib rate control over the weekend - dig level 1.1 Cont Entresto twice daily Cont aldactone 25mg daily Daily weights, daily BMP, etc. Fluid restrict to 1500cc/day Salt restrict May need heart cath later this admission to r/o ischemia/CAD contributing to CHF Check BMP am and mag and replete to keep K>4 and Mag>2.0 (2) Atrial fibrillation with rapid ventricular response: Plan: Rates improved with addition of digoxin to her metoprolol last week but PO digoxin was not started then. Had continued episodes of RVR. Thus, added PO digoxin 0.125mg daily on 08/26/22. Metoprolol tartrate increased to 75mg BID on 08/26/22 as well. Cont Eliquis. Rates now controlled at rest-need to see if rates controlled with ambulation once she is up and moving more follow on tele (3) Elevated LFTs: Plan: due to passive hepatic congestion from decompensated CHF repeat LFTs 08/25 improved repeat the LFTs in the AM (4) Stas's thyroiditis: Plan: decompensated. This will contribute to her CHF issues as well. TSH 41. FT4 very low. Patient reports compliance with levothyroxine 75 mcg. Likely gut wall edema inhibiting absorption -increased levothyroxine to 100 mcg daily and repeat TSH in 6 weeks. -this could be contributing to "electric shock feeling" (sounds like neuropathy) in feet (5) Elevated troponin: Plan: Likely Myocardial demand ischemia in setting of decompensated CHF and rapid a.f ib. No symptoms of ACS. With that said may need heart cath to r/o CAD - defer timing to cardiology - later in the admission? Will d/w Cardiology (6) Cardiomyopathy: Plan: 2nd to chronic, uncontrolled a.fib (suspected). Can't fully r/o CAD/ischemia. See above. Also, could consider adding on Jardiance as outpt (7) Anasarca: Plan: 2nd to severe, decompensated CHF. improving nicely. (8) Generalized weakness: Plan: 2nd to advanced cardiac disease. cont PT/OT. (9) Hypertension: Plan: controlled (10) Hypercholesterolemia: Plan: Continue atorvastatin 20 mg. Most recent LFts stable/improved. (11) Rosacea: Plan: Continue metronidazole gel. (12) Cellulitis and abscess of lower extremity: Plan: b/l feet/shins. may be contributing to her LE complaints. Cont to improve. cont keflex and doxy.last day tx 08/31 (13) Hypomagnesemia: Plan: remains ow normakl, goal>2.0 cont slow mag daily add 1 gram Mag sulfate IV repeat level am (14) Vitamin B12 deficiency: Plan: cont B12 supplement 1000mcg daily could be contributing to discomfort in feet (15) Stasis dermatitis of both legs: Plan: start triamcinolone cream 0.1% TID in thin amounts to scaly regions (16) Neuropathy: Plan: her "electric" feeling in feet may be neuropathy her decompensated hypothyroidism, low-normal B12 level, and/or other factors are likely contributing start gabapentin 300mg HS -helping Plan cont PT, OT Dispo-progressing nicely, will continue her stay for ongoing diuresis and needs PT/OT evals to see if needs rehab placement Admission and Anticipated Discharge Date Admission Date: August 21, 2022 Subjective Pt feels the gabapentin helped her feet feel less shock-like pain today but did feel groggy most of the day. No CP, SOB, feels her fluid pockets in her flanks are still present but overall much less edematous Tele with Afib, rates controlled at rest. She did not get out of bed today. Review of Systems Review of Systems: All systems reviewed & are unremarkable except as noted in HPI & below Physical Exam Physical Exam: gen - NAD neck - +JVD heart - irregularly irregular, s1 s2, regular rate, no murmur lungs - rales b/l L>R, improving; no wheezes; no increased work of breathing abd - body wall edema flanks b/l; soft, NT, BS+, no HSM ext - pulses 2+ b/l; edema of legs from feet to thighs still present but improving day to day skin - venous stasis changes b/l shins and feet; cellulitis b/l feet and shins again appears improved with less redness & heat; stasis dermatitis distal shins and ankles psych - a/o x 3 Results & Data Results & Data ([facility]) Vital Signs (Past 12 Hours) Vital Signs Temp Pulse Pulse Pulse Resp BP Pulse Ox 08/28/22 16:00 79 08/28/22 15:36 37.2 C 110 H 19 110/67 95 08/28/22 15:17 83 08/28/22 10:58 36.4 C L 83 20 87/46 L 95 08/28/22 09:17 90 117/62 08/28/22 07:00 78 08/28/22 07:02 36.6 C 79 19 111/70 95 O2 Del Method 08/28/22 16:00 08/28/22 15:36 Room Air 08/28/22 15:17 08/28/22 10:58 Room Air 08/28/22 09:17 08/28/22 07:00 08/28/22 07:02 Room Air Laboratory Results 08/28/22 08/28/22 Range/Units 06:14 06:14 Sodium 141 (136-145) mmol/L Potassium 3.7 (3.5-5.1) mmol/L Chloride 100 (98-107) mmol/L Carbon Dioxide 34 H (21-32) mmol/L Anion Gap 7 (3-11) BUN 23 (6-23) mg/dl Creatinine 0.83 (0.6-1.2) mg/dl Est Cr Clr Drug Dosing 69.3 ml/min Est GFR ( Amer) 81.7 ml/min Est GFR (Non-Af Amer) 70.4 ml/min BUN/Creatinine Ratio 27.7 H (10-20) Glucose 86 (70-99(Fasting)) mg/dl Calcium 8.4 L (8.5-10.1) mg/dl Magnesium 1.7 (1.7-2.4) mg/dl Digoxin 1.1 (0.8-2.0) ng/ml PG Care Time/CCT Total # of Minutes Spent Total Time Spent with Patient: Total time spent is greater than 50% in coordination of care (as documented) at patient's floor/unit and/or counseling patient: Coding Level of Care Code 51286 Subseq Hosp Care Lvl 2 Diagnoses HFrEF (heart failure with reduced ejection fraction) I50.20 Atrial fibrillation with rapid ventricular response I48.91 Elevated LFTs R79.89 Stas's thyroiditis E06.3 Elevated troponin R77.8 Cardiomyopathy I42.9 Anasarca R60.1 Generalized weakness R53.1 Hypertension I10 Hypercholesterolemia E78.00 Rosacea L71.9 Cellulitis and abscess of lower extremity L03.119; L02.419 Hypomagnesemia E83.42 Vitamin B12 deficiency E53.8 Stasis dermatitis of both legs I87.2 Neuropathy G62.9
[2022-08-28] MEDS: ATORVASTATIN 20 MG TAB PO SCH (20:01)
[2022-08-28] MEDS: GABAPENTIN 300 MG CAP PO SCH (20:04)
[2022-08-29] MEDS: LEVOTHYROXINE SODIUM 100 MCG TABLET PO SCH (06:14)
[2022-08-29 07:12] LABS: Basophils # (auto) 0.08 K/uL (0-0.2); Basophils % (auto) 1.1 %; Eosinophils # (auto) 0.31 K/uL (0-0.50); Eosinophils % (auto) 4.3 %; Hematocrit (blood only) 39.4 % (34.1-44.9); Hemoglobin 13.1 g/dl (12.0-16.0); Immature Granulocytes # (auto) 0.03 K/uL (0.00-0.02); Immature Granulocytes % (auto) 0.4 %; Lymphocytes # (auto) 1.43 K/uL (1.2-3.4); Lymphocytes % (auto) 19.8 %; Mean Corpuscular Hemoglobin 30.2 pg (25.0-34.0); Mean Corpuscular Hgb Conc 33.2 g/dL (32.0-36.0); Mean Corpuscular Volume 90.8 fL (80.0-100.0); Mean Platelet Volume 10.1 fL (9.4-12.3); Monocytes % (auto) 9.7 %; Neutrophils # (auto) 4.68 K/uL (1.4-6.5); Neutrophils % (auto) 64.7 %; Platelet Count 207 K/uL (130-400); RDW Coefficient of Variation 19.1 % (11.5-14.5); RDW Standard Deviation 62.9 fL (36.4-46.3); Red Blood Count 4.34 M/uL (3.93-5.22); White Blood Count 7.23 K/ul (4.8-10.8)
[2022-08-29 07:37] LABS: Albumin Globulin Ratio 1.4 (0.9-2); BUN Creatinine Ratio 27.7 (10-20); Bilirubin,Total 0.9 mg/dl (0.2-1.0); Creatinine Clr Calc Pharmacy 69.3 ml/min; Est GFR (African American) 81.7 ml/min; Est GFR (Non-African American) 70.4 ml/min; Globulin 2.1 gm/dl (2.5-4.0); Potassium 3.9 mmol/L (3.5-5.1); Total Protein 5.1 gm/dl (6.0-8.3)
[2022-08-29] MEDS: FEXOFENADINE HCL 180 MG TAB PO SCH (08:11)
[2022-08-29] MEDS: metroNIDAZOLE 0.75% TOPICAL GEL 45 GM TUBE TOP SCH ×2 (08:11→20:09)
[2022-08-29] MEDS: DOXYCYCLINE HYCLATE 100 MG CAP PO SCH ×2 (08:11→20:08)
[2022-08-29] MEDS: TRIAMCINOLONE ACET 0.1% CR 80 GM TUBE EXT SCH ×3 (08:11→20:09)
[2022-08-29] MEDS: FUROSEMIDE 40 MG/4 ML VIAL IV SCH ×2 (08:12→16:17)
[2022-08-29] MEDS: CYANOCOBALAMIN (B-12) 500 MCG TABLET PO SCH (08:12)
[2022-08-29] MEDS: cephALEXin 500 MG CAP PO SCH ×3 (08:12→20:07)
[2022-08-29] MEDS: MAGNESIUM CHLORIDE W/CALCIUM 64MG DELAYED REL TAB PO SCH (08:13)
[2022-08-29] MEDS: SPIRONOLACTONE 25 MG TAB PO SCH (08:13)
[2022-08-29] MEDS: POTASSIUM CHLORIDE CRTAB 20 MEQ TABCR PO SCH ×2 (08:13→20:10)
[2022-08-29] MEDS: ASPIRIN 81 MG ECTAB PO SCH (08:13)
[2022-08-29] MEDS: APIXABAN 5 MG TABLET PO SCH ×2 (08:14→20:06)
[2022-08-29] MEDS: VALSARTAN/SACUBITRIL 26/24MG TAB PO SCH ×2 (08:14→20:07)
[2022-08-29] MEDS: METOPROLOL TARTRATE 25 MG TAB PO SCH ×2 (08:14→20:07)
[2022-08-29] MEDS: DIGOXIN 0.125 MG TAB PO SCH (16:15)
[2022-08-29] MEDS: GABAPENTIN 300 MG CAP PO SCH (20:06)
[2022-08-29] MEDS: ATORVASTATIN 20 MG TAB PO SCH (20:08)
--- NOTE | 2022-08-29 20:39 | Hospitalist Progress Note ---
Date of Service August 29, 2022 Assessment & Plan (1) HFrEF (heart failure with reduced ejection fraction): Plan: Acute on chronic HFrEF - MUCH improved. Weight down considerably since admission. About 22kg weight loss. She is feeling markedly better but still has significant edema/anasarca, but no change since yesterday Echo in 06/15 and this admission both with EF 15-20% Either tachy-arrhythmia induced or due to ischemia (has wall motion abnormalities) or both Cont IV lasix 40mg BID, but may increase to 80 bid tomorrow in no change again in weight Cont metoprolol 75mg BID - will ultimately need this changed to succinate formulation later in stay. Added digoxin 0.125mg daily for a.fib rate control over the weekend - dig level 1.1. May need to increase dose if metoprolol not able to be titrated up further due to soft BPs Cont Entresto twice daily Cont aldactone 25mg daily Daily weights, daily BMP, etc. Fluid restrict to 1500cc/day Salt restrict May need heart cath in future to r/o ischemia/CAD contributing to CHF, but Cardiology would like to see how repeat ECHO is in the future once rates controlled Check BMP am and mag and replete to keep K>4 and Mag>2.0 (2) Atrial fibrillation with rapid ventricular response: Plan: Rates improved with addition of digoxin to her metoprolol last week but PO digoxin was not started then. Had continued episodes of RVR. Thus, added PO digoxin 0.125mg daily on 08/26/22. Metoprolol tartrate increased to 75mg BID on 08/26/22 as well. Cont Eliquis. Rates now controlled at rest, but increase with minimal exertion now that she is up and moving more-will d/w Cardio about increasing metoprolol vs digoxin follow on tele (3) Elevated LFTs: Plan: due to passive hepatic congestion from decompensated CHF repeat LFTs 08/25 improved, alk phos mildly elevated (4) Stas's thyroiditis: Plan: decompensated. This will contribute to her CHF issues as well. TSH 41. FT4 very low. Patient reports compliance with levothyroxine 75 mcg. Likely gut wall edema inhibiting absorption -increased levothyroxine to 100 mcg daily and repeat TSH in 6 weeks. -this could be contributing to "electric shock feeling" (sounds like neuropathy) in feet (5) Elevated troponin: Plan: Likely Myocardial demand ischemia in setting of decompensated CHF and rapid a.fib. No symptoms of ACS. With that said may need heart cath to r/o CAD - defer timing to cardiology - later in the admission? Will d/w Cardiology (6) Cardiomyopathy: Plan: 2nd to chronic, uncontrolled a.fib (suspected). Can't fully r/o CAD/ischemia. See above. Also, could consider adding on Jardiance as outpt (7) Anasarca: Plan: 2nd to severe, decompensated CHF. improving nicely. (8) Generalized weakness: Plan: 2nd to advanced cardiac disease. improving cont PT/OT. (9) Hypertension: Plan: controlled (10) Hypercholesterolemia: Plan: Continue atorvastatin 20 mg. Most recent LFts stable/improved. (11) Rosacea: Plan: Continue metronidazole gel. (12) Cellulitis and abscess of lower extremity: Plan: b/l feet/shins. may be contributing to her LE complaints. Cont to improve. cont keflex and doxy.last day tx 08/31 (13) Hypomagnesemia: Plan: now normal, goal>2.0 cont slow mag daily repeat level am (14) Vitamin B12 deficiency: Plan: cont B12 supplement 1000mcg daily could be contributing to discomfort in feet (15) Stasis dermatitis of both legs: Plan: start triamcinolone cream 0.1% TID in thin amounts to scaly regions (16) Neuropathy: Plan: her "electric" feeling in feet may be neuropathy her decompensated hypothyroidism, low-normal B12 level, and/or other factors are likely contributing start gabapentin 300mg HS -helping but still having pains during day-add on 100mg in AM Plan cont PT, OT Dispo-progressing, will continue her stay for ongoing diuresis-would like to see her lose a few more kg prior to discharge -needs PT/OT evals to see if needs rehab placement, but it seems she'll be able to go home Admission and Anticipated Discharge Date Admission Date: August 21, 2022 Subjective Pt reports she has been more active since moving to a double room to be with her mother on comfort measures yesterday. Tele with afib with rates 60-70s at ret and as high as 160s with activity. Denies CP, SOB, abd pain. Still feels very swollen in her flanks and thighs. Is moving bowels. Review of Systems Review of Systems: All systems reviewed & are unremarkable except as noted in HPI & below Physical Exam Physical Exam: gen - NAD neck - +JVD heart - irregularly irregular, s1 s2, regular rate, no murmur lungs - rales b/l L>R, improving; no wheezes; no increased work of breathing abd - body wall edema flanks b/l; soft, NT, BS+, no HSM ext - pulses 2+ b/l; edema of legs from feet to thighs still present but improving day to day skin - venous stasis changes b/l shins and feet; cellulitis b/l feet and shins again appears improved with less redness & heat; stasis dermatitis distal shins and ankles psych - a/o x 3 Results & Data Results & Data ([facility]) Vital Signs (Past 12 Hours) Vital Signs Temp Pulse Pulse Resp BP Pulse Ox O2 Del Method 08/29/22 19:12 36.8 C 69 18 103/66 98 Room Air 08/29/22 16:15 104 H 08/29/22 15:41 36.8 C 104 H 18 129/78 94 Room Air 08/29/22 10:45 36.8 C 62 17 94/58 L 97 Room Air 08/29/22 09:48 Room Air Laboratory Results 08/29/22 08/29/22 Range/Units 06:58 06:58 WBC 7.23 (4.8-10.8) K/ul RBC 4.34 (3.93-5.22) M/uL Hgb 13.1 (12.0-16.0) g/dl Hct 39.4 (34.1-44.9) % MCV 90.8 (80.0-100.0) fL MCH 30.2 (25.0-34.0) pg MCHC 33.2 (32.0-36.0) g/dL RDW Std Deviation 62.9 H (36.4-46.3) fL RDW Coeff of Елена 19.1 H (11.5-14.5) % Plt Count 207 (130-400) K/uL MPV 10.1 (9.4-12.3) fL Immature Gran % (Auto) 0.4 % Neut % (Auto) 64.7 % Lymph % (Auto) 19.8 % [place] % (Auto) 9.7 % Eos % (Auto) 4.3 % Baso % (Auto) 1.1 % Neut # (Auto) 4.68 (1.4-6.5) K/uL Lymph # (Auto) 1.43 (1.2-3.4) K/uL [place] # (Auto) 0.70 (0.24-0.82) K/uL Eos # (Auto) 0.31 (0-0.50) K/uL Baso # (Auto) 0.08 (0-0.2) K/uL Immature Gran # (Auto) 0.03 H (0.00-0.02) K/uL Sodium 140 (136-145) mmol/L Potassium 3.9 (3.5-5.1) mmol/L Chloride 102 (98-107) mmol/L Carbon Dioxide 33 H (21-32) mmol/L Anion Gap 5 (3-11) BUN 23 (6-23) mg/dl Creatinine 0.83 (0.6-1.2) mg/dl Est Cr Clr Drug Dosing 69.3 ml/min Est GFR ( Amer) 81.7 ml/min Est GFR (Non-Af Amer) 70.4 ml/min BUN/Creatinine Ratio 27.7 H (10-20) Glucose 103 H (70-99(Fasting)) mg/dl Calcium 8.0 L (8.5-10.1) mg/dl Magnesium 2.0 (1.7-2.4) mg/dl Total Bilirubin 0.9 (0.2-1.0) mg/dl AST 25 (13-39) U/L ALT 24 (7-52) U/L Alkaline Phosphatase 138 H (34-104) U/L Total Protein 5.1 L (6.0-8.3) gm/dl Albumin 3.0 L (3.4-5.0) gm/dl Globulin 2.1 L (2.5-4.0) gm/dl Albumin/Globulin Ratio 1.4 (0.9-2) PG Care Time/CCT Total # of Minutes Spent Total Time Spent with Patient: Total time spent is greater than 50% in coordination of care (as documented) at patient's floor/unit and/or counseling patient: Coding Level of Care Code 47128 Subseq Hosp Care Lvl 2 Diagnoses HFrEF (heart failure with reduced ejection fraction) I50.20 Atrial fibrillation with rapid ventricular response I48.91 Elevated LFTs R79.89 Stas's thyroiditis E06.3 Elevated troponin R77.8 Cardiomyopathy I42.9 Anasarca R60.1 Generalized weakness R53.1 Hypertension I10 Hypercholesterolemia E78.00 Rosacea L71.9 Cellulitis and abscess of lower extremity L03.119; L02.419 Hypomagnesemia E83.42 Vitamin B12 deficiency E53.8 Stasis dermatitis of both legs I87.2 Neuropathy G62.9
[2022-08-30] MEDS: LEVOTHYROXINE SODIUM 100 MCG TABLET PO SCH (05:28)
[2022-08-30 07:24] LABS: BUN Creatinine Ratio 28.2 (10-20); Calcium 8.3 mg/dl (8.5-10.1); Creatinine Clr Calc Pharmacy 68.1 ml/min; Potassium 4.2 mmol/L (3.5-5.1)
[2022-08-30] MEDS: cephALEXin 500 MG CAP PO SCH ×3 (08:27→20:29)
[2022-08-30] MEDS: VALSARTAN/SACUBITRIL 26/24MG TAB PO SCH ×2 (08:27→20:28)
[2022-08-30] MEDS: ASPIRIN 81 MG ECTAB PO SCH (08:27)
[2022-08-30] MEDS: DOXYCYCLINE HYCLATE 100 MG CAP PO SCH ×2 (08:27→20:28)
[2022-08-30] MEDS: METOPROLOL TARTRATE 25 MG TAB PO SCH (08:27)
[2022-08-30] MEDS: FEXOFENADINE HCL 180 MG TAB PO SCH (08:27)
[2022-08-30] MEDS: CYANOCOBALAMIN (B-12) 500 MCG TABLET PO SCH (08:27)
[2022-08-30] MEDS: APIXABAN 5 MG TABLET PO SCH ×2 (08:28→20:28)
[2022-08-30] MEDS: MAGNESIUM CHLORIDE W/CALCIUM 64MG DELAYED REL TAB PO SCH (08:28)
[2022-08-30] MEDS: TRIAMCINOLONE ACET 0.1% CR 80 GM TUBE EXT SCH ×3 (08:28→20:31)
[2022-08-30] MEDS: SPIRONOLACTONE 25 MG TAB PO SCH (08:28)
[2022-08-30] MEDS: metroNIDAZOLE 0.75% TOPICAL GEL 45 GM TUBE TOP SCH ×2 (08:29→20:30)
[2022-08-30] MEDS: FUROSEMIDE 40 MG/4 ML VIAL IV SCH ×2 (08:32→17:25)
[2022-08-30] MEDS: POTASSIUM CHLORIDE CRTAB 20 MEQ TABCR PO SCH ×2 (08:32→20:27)
[2022-08-30] MEDS: GABAPENTIN 100 MG CAP PO SCH (09:26)
[2022-08-30] MEDS ORDERED: METOPROLOL TARTRATE 25 MG TAB PO ONE (10:15)
[2022-08-30] MEDS ORDERED: FUROSEMIDE 40 MG/4 ML VIAL IV ONE (10:15)
--- NOTE | 2022-08-30 11:12 | Cardiology Progress Note ---
Date of Service August 30, 2022 Assessment & Plan (1) Acute on chronic HFrEF (heart failure with reduced ejection fraction): Plan: She continues to diurese well. Still element of volume overload. Lasix increased today to affect a more rapid diuresis. Renal function electrolytes continue to be stable. (2) Atrial fibrillation with rapid ventricular response: Plan: At rest her rate is well controlled. With ambulation she has some higher rates. I think overall improved. Some of the high rates on telemetry are artifactual in nature. However, she would benefit from a higher dose of metoprolol. This will be increased to 100 mg twice daily. Continue digoxin. Continue systemic anticoagulation. (3) Cardiomyopathy: Plan: On metoprolol succinate, spironolactone and Entresto. Jardiance is being considered. Perhaps waiting to see if adequate rate control improved LV function is worthwhile. Unclear etiology. Thought to be tachycardia mediated. With improved rate control and time have a better understanding of the etiology. She did not describe symptoms of angina or coronary insufficiency. Ischemic evaluation could be considered in the outpatient setting. (4) Mitral and aortic regurgitation: Plan: -mild aortic insufficiency on current echocardiogram. -mild to moderate mitral regurgitation on current echocardiogram. (5) Elevated troponin: Plan: -likely a supply demand mismatch at time of presentation. -do not suspect an acute coronary syndrome. (6) Hypertension: Plan: -adequate control on current regimen. Low blood pressure at times. Admission and Anticipated Discharge Date Admission Date: August 21, 2022 Subjective This morning patient claimed he feeling well. She still gets occasional pains in the legs especially with ambulation. She did not report limiting dyspnea. No orthopnea. No chest pain. No sense of palpitation. Review of Systems Review of Systems: Per HPI Physical Exam Physical Exam: Gen.: No acute distress. Alert and oriented. HEENT: Anicteric sclera. Cardiac: Irregularly irregular rhythm. Pulmonary: Normal respiratory effort. Crackles to the mid lung noel. Extremities: 2+ radial pulses bilaterally. Some persistent edema. This is dependent in the thighs and most noticeable in the lower leg. No cyanosis. Psychiatric: Affect appears appropriate. She answers all questions appropriately Results & Data ([facility]) Vital Signs (Past 12 Hours) Vital Signs Temp Pulse Pulse Pulse Resp BP Pulse Ox 08/30/22 08:00 77 08/30/22 07:00 36.8 C 87 20 128/59 L 100 08/30/22 03:17 36.6 C 77 18 116/63 91 O2 Del Method 08/30/22 08:00 08/30/22 07:00 08/30/22 03:17 Room Air Laboratory Results Abnormal Lab Results 08/30/22 06:48 Sodium 138 Potassium 4.2 Chloride 100 Carbon Dioxide 32 Anion Gap 6 BUN 22 Creatinine 0.78 Est Cr Clr Drug Dosing 68.1 Est GFR ( Amer) 88.0 Est GFR (Non-Af Amer) 76.0 BUN/Creatinine Ratio 28.2 H Glucose 102 H Calcium 8.3 L Magnesium 2.0 PG Care Time/CCT Total # of Minutes Spent Total Time Spent with Patient: Total time spent is greater than 50% in coordination of care (as documented) at patient's floor/unit and/or counseling patient: Coding Level of Care Code 67552 Subseq Hosp Care Lvl 2 Diagnoses Acute on chronic HFrEF (heart failure with reduced ejection fraction) I50.23 Atrial fibrillation with rapid ventricular response I48.91 Cardiomyopathy I42.9 Mitral and aortic regurgitation I08.0 Elevated troponin R77.8 Hypertension I10
--- NOTE | 2022-08-30 15:18 | Hospitalist Progress Note ---
Date of Service August 30, 2022 Assessment & Plan (1) HFrEF (heart failure with reduced ejection fraction): Plan: Acute on chronic HFrEF - MUCH improved. Weight down considerably since admission. About 24kg weight loss. She is feeling markedly better but still has significant edema/anasarca Echo in 06/15 and this admission both with EF 15-20% Either tachy-arrhythmia induced or due to ischemia (has wall motion abnormalities) or both Renal function remains normal Increase IV lasix to 80mg BID Increase metoprolol to 100mg BID - will ultimately need this changed to succinate formulation later in stay. Added digoxin 0.125mg daily for a.fib rate control over the weekend - dig level 1.1 Cont Entresto twice daily Cont aldactone 25mg daily Daily weights, daily BMP, etc. Fluid restrict to 1500cc/day Salt restrict May need heart cath in future to r/o ischemia/CAD contributing to CHF, but Cardiology would like to see how repeat ECHO is in the future once rates controlled Follow BMP am and mag and replete to keep K>4 and Mag>2.0 (2) Atrial fibrillation with rapid ventricular response: Plan: Rates improved with addition of digoxin to her metoprolol last week but PO digoxin was not started then. Had continued episodes of RVR. Thus, added PO digoxin 0.125mg daily on 08/26/22. Metoprolol tartrate increased to 75mg BID on 08/26/22 as well. Rates now controlled at rest, but still increase with minimal exertion to 150s- 160s D/w Cardiology--> increase metoprolol to 100mg po bid Cont Eliquis. follow on tele (3) Elevated LFTs: Plan: due to passive hepatic congestion from decompensated CHF repeat LFTs 08/25 improved, alk phos mildly elevated (4) Stas's thyroiditis: Plan: decompensated. This will contribute to her CHF issues as well. TSH 41. FT4 very low. Patient reports compliance with levothyroxine 75 mcg. Likely gut wall edema inhibiting absorption -increased levothyroxine to 100 mcg daily and repeat TSH in 6 weeks. -this could be contributing to "electric shock feeling" (sounds like neuropathy) in feet (5) Elevated troponin: Plan: Likely Myocardial demand ischemia in setting of decompensated CHF and rapid a.fib. No symptoms of ACS. With that said may need heart cath to r/o CAD -Cardio recommends waiting till outpt after repeat ECHO (6) Cardiomyopathy: Plan: 2nd to chronic, uncontrolled a.fib (suspected). Can't fully r/o CAD/ischemia. See above. Also, could consider adding on Jardiance as outpt (7) Anasarca: Plan: 2nd to severe, decompensated CHF. improving nicely. (8) Generalized weakness: Plan: 2nd to advanced cardiac disease. improving cont PT/OT. (9) Hypertension: Plan: controlled (10) Hypercholesterolemia: Plan: Continue atorvastatin 20 mg. Most recent LFts stable/improved. (11) Rosacea: Plan: Continue metronidazole gel. (12) Cellulitis and abscess of lower extremity: Plan: b/l feet/shins. may be contributing to her LE complaints. Resolved cont keflex and doxy.last day tx 08/31 (13) Hypomagnesemia: Plan: now normal, goal>2.0 cont slow mag daily repeat level am (14) Vitamin B12 deficiency: Plan: cont B12 supplement 1000mcg daily could be contributing to discomfort in feet (15) Stasis dermatitis of both legs: Plan: continue triamcinolone cream 0.1% TID in thin amounts to scaly regions (16) Neuropathy: Plan: her "electric" feeling in feet may be neuropathy her decompensated hypothyroidism, low-normal B12 level, and/or other factors are likely contributing start gabapentin 300mg HS -helping but still having pains during day-added on 100mg in AM--> hold at this dose for now and titrate up as tolerated (has side effect of drowsiness) Plan cont PT, OT Dispo-progressing, will continue her stay for ongoing diuresis-would like to see her lose a few more kg prior to discharge -needs PT/OT evals to see if needs rehab placement, but it seems she'll be able to go home Admission and Anticipated Discharge Date Admission Date: August 21, 2022 Subjective Pt reports ongoing shock like sensations in her feet, a little tired today with addition of AM gabapentin. No SOB, CP. Tele with afib, rates to 150-160s with exertion, 80-90s at rest Review of Systems Review of Systems: All systems reviewed & are unremarkable except as noted in HPI & below Physical Exam Physical Exam: gen - NAD neck - +JVD heart - irregularly irregular, s1 s2, regular rate, no murmur lungs - rales b/l L>R, improving; no wheezes; no increased work of breathing abd - body wall edema flanks b/l; soft, NT, BS+, no HSM ext - pulses 2+ b/l; edema of legs from feet to thighs 2+ but improved from yesterday skin - venous stasis changes b/l shins and feet; cellulitis b/l feet and shins again appears improved with less redness & heat; stasis dermatitis distal shins and ankles psych - a/o x 3 Results & Data Results & Data ([facility]) Vital Signs (Past 12 Hours) Vital Signs Temp Pulse Pulse Pulse Resp BP Pulse Ox 08/30/22 08:00 77 08/30/22 07:00 36.8 C 87 20 128/59 L 100 08/30/22 03:17 36.6 C 77 18 116/63 91 O2 Del Method 08/30/22 08:00 08/30/22 07:00 08/30/22 03:17 Room Air Laboratory Results 08/30/22 Range/Units 06:48 Sodium 138 (136-145) mmol/L Potassium 4.2 (3.5-5.1) mmol/L Chloride 100 (98-107) mmol/L Carbon Dioxide 32 (21-32) mmol/L Anion Gap 6 (3-11) BUN 22 (6-23) mg/dl Creatinine 0.78 (0.6-1.2) mg/dl Est Cr Clr Drug Dosing 68.1 ml/min Est GFR ( Amer) 88.0 ml/min Est GFR (Non-Af Amer) 76.0 ml/min BUN/Creatinine Ratio 28.2 H (10-20) Glucose 102 H (70-99(Fasting)) mg/dl Calcium 8.3 L (8.5-10.1) mg/dl Magnesium 2.0 (1.7-2.4) mg/dl PG Care Time/CCT Total # of Minutes Spent Total Time Spent with Patient: Total time spent is greater than 50% in coordination of care (as documented) at patient's floor/unit and/or counseling patient: Coding Level of Care Code 13594 Subseq Hosp Care Lvl 3 Diagnoses HFrEF (heart failure with reduced ejection fraction) I50.20 Atrial fibrillation with rapid ventricular response I48.91 Elevated LFTs R79.89 Stas's thyroiditis E06.3 Elevated troponin R77.8 Cardiomyopathy I42.9 Anasarca R60.1 Generalized weakness R53.1 Hypertension I10 Hypercholesterolemia E78.00 Rosacea L71.9 Cellulitis and abscess of lower extremity L03.119; L02.419 Hypomagnesemia E83.42 Vitamin B12 deficiency E53.8 Stasis dermatitis of both legs I87.2 Neuropathy G62.9
[2022-08-30] MEDS: DIGOXIN 0.125 MG TAB PO SCH (16:11)
[2022-08-30] MEDS: METOPROLOL TARTRATE 100 MG TAB PO SCH (20:28)
[2022-08-30] MEDS: ATORVASTATIN 20 MG TAB PO SCH (20:29)
[2022-08-30] MEDS: GABAPENTIN 300 MG CAP PO SCH (20:29)
[2022-08-31] MEDS: ACETAMINOPHEN 325 MG TAB PO PRN (02:32)
[2022-08-31] MEDS: LEVOTHYROXINE SODIUM 100 MCG TABLET PO SCH (05:52)
[2022-08-31 07:04] LABS: BUN Creatinine Ratio 32.2 (10-20); Calcium 8.5 mg/dl (8.5-10.1); Est GFR (Non-African American) 63.9 ml/min; Potassium 4.1 mmol/L (3.5-5.1)
[2022-08-31] MEDS: APIXABAN 5 MG TABLET PO SCH ×2 (08:01→20:16)
[2022-08-31] MEDS: CYANOCOBALAMIN (B-12) 500 MCG TABLET PO SCH (08:02)
[2022-08-31] MEDS: ASPIRIN 81 MG ECTAB PO SCH (08:02)
[2022-08-31] MEDS: cephALEXin 500 MG CAP PO SCH ×3 (08:02→20:16)
[2022-08-31] MEDS: DOXYCYCLINE HYCLATE 100 MG CAP PO SCH ×2 (08:02→20:16)
[2022-08-31] MEDS: FUROSEMIDE 40 MG/4 ML VIAL IV SCH ×2 (08:03→16:08)
[2022-08-31] MEDS: FEXOFENADINE HCL 180 MG TAB PO SCH (08:03)
[2022-08-31] MEDS: GABAPENTIN 100 MG CAP PO SCH (08:03)
[2022-08-31] MEDS: SPIRONOLACTONE 25 MG TAB PO SCH (08:04)
[2022-08-31] MEDS: MAGNESIUM CHLORIDE W/CALCIUM 64MG DELAYED REL TAB PO SCH (08:04)
[2022-08-31] MEDS: metroNIDAZOLE 0.75% TOPICAL GEL 45 GM TUBE TOP SCH (08:04)
[2022-08-31] MEDS: METOPROLOL TARTRATE 100 MG TAB PO SCH ×2 (08:04→20:16)
[2022-08-31] MEDS: TRIAMCINOLONE ACET 0.1% CR 80 GM TUBE EXT SCH ×3 (08:05→20:15)
[2022-08-31] MEDS: VALSARTAN/SACUBITRIL 26/24MG TAB PO SCH ×2 (08:05→20:17)
[2022-08-31] MEDS: POTASSIUM CHLORIDE CRTAB 20 MEQ TABCR PO SCH ×2 (08:07→20:16)
[2022-08-31] MEDS: DIGOXIN 0.125 MG TAB PO SCH (16:07)
--- NOTE | 2022-08-31 17:11 | Hospitalist Progress Note ---
Date of Service August 31, 2022 Assessment & Plan (1) HFrEF (heart failure with reduced ejection fraction): Plan: Acute on chronic HFrEF - MUCH improved. Weight down considerably since admission. About 27kg weight loss. She is feeling markedly better but still has significant edema/anasarca Net neg 18L fluid Echo in 06/15 and this admission both with EF 15-20% Either tachy-arrhythmia induced or due to ischemia (has wall motion abnormalities) or both Renal function remains normal Initially on lasix 40mg iv bid for many days and then increased IV lasix to 80mg BID 08/30 and significantly improved diuresis Increased metoprolol to 100mg BID - will ultimately need this changed to succinate formulation -200mg daily Added digoxin 0.125mg daily for a.fib rate control - dig level 1.1 Cont Entresto twice daily Cont aldactone 25mg daily Daily weights, daily BMP, etc. Fluid restrict to 1500cc/day Salt restrict May need heart cath in future to r/o ischemia/CAD contributing to CHF, but Cardiology would like to see how repeat ECHO is in the future once rates controlled Follow BMP am and mag and replete to keep K>4 and Mag>2.0 (2) Atrial fibrillation with rapid ventricular response: Plan: Rates improved with addition of digoxin to her metoprolol last week but PO digoxin was not started then. Had continued episodes of RVR. Thus, added PO digoxin 0.125mg daily on 08/26/22. Metoprolol tartrate titrated up and finally have rate control even with exertion now at 100mg bid Appreciate Cardiology consult Cont Zulema. follow on tele (3) Elevated LFTs: Plan: due to passive hepatic congestion from decompensated CHF repeat LFTs 08/25 improved, alk phos mildly elevated (4) Stas's thyroiditis: Plan: decompensated. This will contribute to her CHF issues as well. TSH 41. FT4 very low. Patient reports compliance with levothyroxine 75 mcg. Likely gut wall edema inhibiting absorption -increased levothyroxine to 100 mcg daily and repeat TSH in 6 weeks. -this could be contributing to "electric shock feeling" (sounds like neuropathy) in feet (5) Elevated troponin: Plan: Likely Myocardial demand ischemia in setting of decompensated CHF and rapid a.fib. No symptoms of ACS. With that said may need heart cath to r/o CAD -Cardio recommends waiting till outpt after repeat ECHO (6) Cardiomyopathy: Plan: 2nd to chronic, uncontrolled a.fib (suspected). Can't fully r/o CAD/ischemia. See above. Also, could consider adding on Jardiance as outpt (7) Anasarca: Plan: 2nd to severe, decompensated CHF. improving nicely. (8) Generalized weakness: Plan: 2nd to advanced cardiac disease. improving cont PT/OT. (9) Hypertension: Plan: controlled (10) Hypercholesterolemia: Plan: Continue atorvastatin 20 mg. Most recent LFts stable/improved. (11) Rosacea: Plan: Continue metronidazole gel. (12) Cellulitis and abscess of lower extremity: Plan: b/l feet/shins. may be contributing to her LE complaints. Resolved cont keflex and doxy.last day tx 08/31 (13) Hypomagnesemia: Plan: now normal, goal>2.0 cont slow mag daily repeat level am (14) Vitamin B12 deficiency: Plan: cont B12 supplement 1000mcg daily could be contributing to discomfort in feet (15) Stasis dermatitis of both legs: Plan: continue triamcinolone cream 0.1% TID in thin amounts to scaly regions (16) Neuropathy: Plan: her "electric" feeling in feet may be neuropathy her decompensated hypothyroidism, low-normal B12 level, and/or other factors are likely contributing start gabapentin 300mg HS -helping but still having pains during day-added on 100mg in AM--> hold at this dose for now and titrate up as tolerated (has side effect of drowsiness) Plan cont PT, OT Dispo-progressing, will continue her stay for ongoing diuresis-would like to see her lose a few more kg prior to discharge -needs PT/OT evals to see if needs rehab placement, but it seems she'll be able to go home Admission and Anticipated Discharge Date Admission Date: August 21, 2022 Subjective Pt feels improved, less swelling in flanks. No CP. Tele with much improved rates finally controlled, afib Review of Systems Review of Systems: All systems reviewed & are unremarkable except as noted in HPI & below Physical Exam Physical Exam: gen - NAD heart - irregularly irregular, s1 s2, regular rate, no murmur lungs - rales b/l L>R, improving; no wheezes; no increased work of breathing abd - body wall edema flanks b/l much improved; soft, NT, BS+, no HSM ext - pulses 2+ b/l; edema of legs from feet to thighs 1+ and continue to improve daily skin - venous stasis changes b/l shins and feet; cellulitis b/l feet and shins again appears improved with less redness & heat; stasis dermatitis distal shins and ankles psych - a/o x 3 Results & Data Results & Data ([facility]) Vital Signs (Past 12 Hours) Vital Signs Temp Pulse Pulse Resp BP Pulse Ox O2 Del Method 08/31/22 16:48 36.9 C 59 L 18 93/58 L 97 Room Air 08/31/22 16:07 86 08/31/22 11:12 36.5 C 66 18 91/51 L 95 Room Air 08/31/22 07:11 36.6 C 78 18 107/64 96 Room Air Laboratory Results 08/31/22 Range/Units 05:32 Sodium 138 (136-145) mmol/L Potassium 4.1 (3.5-5.1) mmol/L Chloride 98 (98-107) mmol/L Carbon Dioxide 31 (21-32) mmol/L Anion Gap 9 (3-11) BUN 29 H (6-23) mg/dl Creatinine 0.90 (0.6-1.2) mg/dl Est Cr Clr Drug Dosing 59.0 ml/min Est GFR ( Amer) 74.0 ml/min Est GFR (Non-Af Amer) 63.9 ml/min BUN/Creatinine Ratio 32.2 H (10-20) Glucose 100 H (70-99(Fasting)) mg/dl Calcium 8.5 (8.5-10.1) mg/dl Magnesium 2.0 (1.7-2.4) mg/dl PG Care Time/CCT Total # of Minutes Spent Total Time Spent with Patient: Total time spent is greater than 50% in coordination of care (as documented) at patient's floor/unit and/or counseling patient: Coding Level of Care Code 62152 Subseq Hosp Care Lvl 2 Diagnoses HFrEF (heart failure with reduced ejection fraction) I50.20 Atrial fibrillation with rapid ventricular response I48.91 Elevated LFTs R79.89 Stas's thyroiditis E06.3 Elevated troponin R77.8 Cardiomyopathy I42.9 Anasarca R60.1 Generalized weakness R53.1 Hypertension I10 Hypercholesterolemia E78.00 Rosacea L71.9 Cellulitis and abscess of lower extremity L03.119; L02.419 Hypomagnesemia E83.42 Vitamin B12 deficiency E53.8 Stasis dermatitis of both legs I87.2 Neuropathy G62.9
[2022-08-31] MEDS: ATORVASTATIN 20 MG TAB PO SCH (20:15)
[2022-08-31] MEDS: GABAPENTIN 300 MG CAP PO SCH (20:16)
[2022-09-01] MEDS: ACETAMINOPHEN 325 MG TAB PO PRN (03:14)
[2022-09-01] MEDS: LEVOTHYROXINE SODIUM 100 MCG TABLET PO SCH (05:48)
[2022-09-01 06:19] LABS: Basophils # (auto) 0.08 K/uL (0-0.2); Eosinophils # (auto) 0.31 K/uL (0-0.50); Hematocrit (blood only) 41.5 % (34.1-44.9); Hemoglobin 13.7 g/dl (12.0-16.0); Immature Granulocytes # (auto) 0.03 K/uL (0.00-0.02); Immature Granulocytes % (auto) 0.4 %; Lymphocytes # (auto) 1.67 K/uL (1.2-3.4); Lymphocytes % (auto) 21.4 %; Mean Corpuscular Hemoglobin 30.6 pg (25.0-34.0); Mean Corpuscular Volume 92.8 fL (80.0-100.0); Mean Platelet Volume 10.1 fL (9.4-12.3); Monocytes # (auto) 0.67 K/uL (0.24-0.82); Monocytes % (auto) 8.6 %; Neutrophils # (auto) 5.06 K/uL (1.4-6.5); Neutrophils % (auto) 64.6 %; Platelet Count 244 K/uL (130-400); RDW Coefficient of Variation 18.2 % (11.5-14.5); RDW Standard Deviation 61.6 fL (36.4-46.3); Red Blood Count 4.47 M/uL (3.93-5.22); White Blood Count 7.82 K/ul (4.8-10.8)
[2022-09-01 07:06] LABS: Albumin Globulin Ratio 1.3 (0.9-2); Albumin Level 3.3 gm/dl (3.4-5.0); Bilirubin,Total 0.9 mg/dl (0.2-1.0); Calcium 8.7 mg/dl (8.5-10.1); Creatinine Clr Calc Pharmacy 51.6 ml/min; Est GFR (African American) 62.9 ml/min; Est GFR (Non-African American) 54.3 ml/min; Globulin 2.5 gm/dl (2.5-4.0); Total Protein 5.8 gm/dl (6.0-8.3)
[2022-09-01] MEDS: MAGNESIUM CHLORIDE W/CALCIUM 64MG DELAYED REL TAB PO SCH (08:35)
[2022-09-01] MEDS: METOPROLOL TARTRATE 100 MG TAB PO SCH ×2 (08:36→20:36)
[2022-09-01] MEDS: GABAPENTIN 100 MG CAP PO SCH (08:36)
[2022-09-01] MEDS: FEXOFENADINE HCL 180 MG TAB PO SCH (08:36)
[2022-09-01] MEDS: POTASSIUM CHLORIDE CRTAB 20 MEQ TABCR PO SCH (08:36)
[2022-09-01] MEDS: SPIRONOLACTONE 25 MG TAB PO SCH (08:36)
[2022-09-01] MEDS: ASPIRIN 81 MG ECTAB PO SCH (08:37)
[2022-09-01] MEDS: APIXABAN 5 MG TABLET PO SCH ×2 (08:37→20:36)
[2022-09-01] MEDS: CYANOCOBALAMIN (B-12) 500 MCG TABLET PO SCH (08:37)
[2022-09-01] MEDS: FUROSEMIDE 40 MG/4 ML VIAL IV SCH ×2 (08:37→10:51)
[2022-09-01] MEDS: VALSARTAN/SACUBITRIL 26/24MG TAB PO SCH ×2 (08:38→20:36)
[2022-09-01] MEDS: TRIAMCINOLONE ACET 0.1% CR 80 GM TUBE EXT SCH ×3 (08:38→20:36)
[2022-09-01] MEDS ORDERED: FUROSEMIDE 40 MG/4 ML VIAL IV SCH (10:30)
--- NOTE | 2022-09-01 16:11 | Hospitalist Progress Note ---
Date of Service September 01, 2022 Assessment & Plan (1) HFrEF (heart failure with reduced ejection fraction): Plan: Acute on chronic HFrEF - MUCH improved. Weight down considerably since admission. About 25kg weight loss. 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 Fluid restrict to 1500cc/day Salt restrict May need heart cath in future to r/o ischemia/CAD contributing to CHF, but Cardiology would like to see how repeat ECHO is in the future once rates controlled Follow BMP am and mag and replete to keep K>4 and Mag>2.0 (2) Atrial fibrillation with rapid ventricular response: Plan: Rates improved with addition of digoxin to her metoprolol last week but PO digoxin was not started then. Had continued episodes of RVR. Thus, added PO digoxin 0.125mg daily on 08/26/22. Metoprolol tartrate titrated up and finally have rate control even with exertion now at 100mg bid Appreciate Cardiology consult Cont Eliquis. follow on tele (3) Elevated LFTs: Plan: due to passive hepatic congestion from decompensated CHF repeat LFTs 08/25 improved, alk phos mildly elevated (4) Stas's thyroiditis: Plan: decompensated. This will contribute to her CHF issues as well. TSH 41. FT4 very low. Patient reports compliance with levothyroxine 75 mcg. Likely gut wall edema inhibiting absorption -increased levothyroxine to 100 mcg daily and repeat TSH in 6 weeks. -this could be contributing to "electric shock feeling" (sounds like neuropathy) in feet (5) Elevated troponin: Plan: Likely Myocardial demand ischemia in setting of decompensated CHF and rapid a.fib. No symptoms of ACS. With that said may need heart cath to r/o CAD -Cardio recommends waiting till outpt after repeat ECHO (6) Cardiomyopathy: Plan: 2nd to chronic, uncontrolled a.fib (suspected). Can't fully r/o CAD/ischemia. See above. Also, could consider adding on Jardiance as outpt (7) Anasarca: Plan: 2nd to severe, decompensated CHF. improving nicely. (8) Generalized weakness: Plan: 2nd to advanced cardiac disease. improving cont PT/OT. (9) Hypertension: Plan: controlled (10) Hypercholesterolemia: Plan: Continue atorvastatin 20 mg. Most recent LFts stable/improved. (11) Rosacea: Plan: Continue metronidazole gel. (12) Cellulitis and abscess of lower extremity: Plan: b/l feet/shins. may be contributing to her LE complaints. Resolved completed 7 day course of keflex and doxy (13) Hypomagnesemia: Plan: now normal, goal>2.0 cont slow mag daily repeat level am (14) Vitamin B12 deficiency: Plan: cont B12 supplement 1000mcg daily could be contributing to discomfort in feet (15) Stasis dermatitis of both legs: Plan: continue triamcinolone cream 0.1% TID in thin amounts to scaly regions (16) Neuropathy: Plan: her "electric" feeling in feet may be neuropathy her decompensated hypothyroidism, low-normal B12 level, and/or other factors are likely contributing start gabapentin 300mg HS -helping but still having pains during day-added on 100mg in AM--> hold at this dose for now and titrate up as tolerated (has side effect of drowsiness) Plan cont PT, OT Dispo-much improved, can dc to home tomorrow, will need wheelchair van transport Admission and Anticipated Discharge Date Admission Date: August 21, 2022 Subjective Feeling better. BPs low this AM, denies lightheadedness, no SO, CP. Unable to give IV lasix today. No other concerns Tele with Afib, rates well controlled Review of Systems Review of Systems: All systems reviewed & are unremarkable except as noted in HPI & below Physical Exam Physical Exam: gen - NAD heart - irregularly irregular, s1 s2, regular rate, no murmur lungs - rales b/l L>R, improving; no wheezes; no increased work of breathing abd - body wall edema resolved; soft, NT, BS+, no HSM ext - pulses 2+ b/l; edema of legs from feet to thighs trace and significantly improved skin - venous stasis changes b/l shins and feet; cellulitis b/l feet and shins resolvedt; stasis dermatitis distal shins and ankles psych - a/o x 3 Results & Data Results & Data ([facility]) Vital Signs (Past 12 Hours) Vital Signs Temp Pulse Pulse Resp BP BP Pulse Ox 09/01/22 15:17 36.9 C 81 18 94/63 L 97 09/01/22 15:09 81 09/01/22 10:49 36.5 C 70 18 85/48 L 91/53 L 96 09/01/22 10:17 97/57 L 91/49 L 09/01/22 09:24 82 09/01/22 07:00 36.6 C 76 18 102/66 97 O2 Del Method 09/01/22 15:17 Room Air 09/01/22 15:09 09/01/22 10:49 Room Air 09/01/22 10:17 09/01/22 09:24 09/01/22 07:00 Room Air Laboratory Results 09/01/22 09/01/22 Range/Units 05:58 05:58 WBC 7.82 (4.8-10.8) K/ul RBC 4.47 (3.93-5.22) M/uL Hgb 13.7 (12.0-16.0) g/dl Hct 41.5 (34.1-44.9) % MCV 92.8 (80.0-100.0) fL MCH 30.6 (25.0-34.0) pg MCHC 33.0 (32.0-36.0) g/dL RDW Std Deviation 61.6 H (36.4-46.3) fL RDW Coeff of Елена 18.2 H (11.5-14.5) % Plt Count 244 (130-400) K/uL MPV 10.1 (9.4-12.3) fL Immature Gran % (Auto) 0.4 % Neut % (Auto) 64.6 % Lymph % (Auto) 21.4 % [place] % (Auto) 8.6 % Eos % (Auto) 4.0 % Baso % (Auto) 1.0 % Neut # (Auto) 5.06 (1.4-6.5) K/uL Lymph # (Auto) 1.67 (1.2-3.4) K/uL [place] # (Auto) 0.67 (0.24-0.82) K/uL Eos # (Auto) 0.31 (0-0.50) K/uL Baso # (Auto) 0.08 (0-0.2) K/uL Immature Gran # (Auto) 0.03 H (0.00-0.02) K/uL Sodium 139 (136-145) mmol/L Potassium 4.0 (3.5-5.1) mmol/L Chloride 98 (98-107) mmol/L Carbon Dioxide 33 H (21-32) mmol/L Anion Gap 8 (3-11) BUN 36 H (6-23) mg/dl Creatinine 1.03 (0.6-1.2) mg/dl Est Cr Clr Drug Dosing 51.6 ml/min Est GFR ( Amer) 62.9 ml/min Est GFR (Non-Af Amer) 54.3 ml/min BUN/Creatinine Ratio 35.0 H (10-20) Glucose 108 H (70-99(Fasting)) mg/dl Calcium 8.7 (8.5-10.1) mg/dl Magnesium 2.0 (1.7-2.4) mg/dl Total Bilirubin 0.9 (0.2-1.0) mg/dl AST 23 (13-39) U/L ALT 26 (7-52) U/L Alkaline Phosphatase 142 H (34-104) U/L Total Protein 5.8 L (6.0-8.3) gm/dl Albumin 3.3 L (3.4-5.0) gm/dl Globulin 2.5 (2.5-4.0) gm/dl Albumin/Globulin Ratio 1.3 (0.9-2) PG Care Time/CCT Total # of Minutes Spent Total Time Spent with Patient: Total time spent is greater than 50% in coordination of care (as documented) at patient's floor/unit and/or counseling patient: Coding Level of Care Code 15100 Subseq Hosp Care Lvl 2 Diagnoses HFrEF (heart failure with reduced ejection fraction) I50.20 Atrial fibrillation with rapid ventricular response I48.91 Elevated LFTs R79.89 Stas's thyroiditis E06.3 Elevated troponin R77.8 Cardiomyopathy I42.9 Anasarca R60.1 Generalized weakness R53.1 Hypertension I10 Hypercholesterolemia E78.00 Rosacea L71.9 Cellulitis and abscess of lower extremity L03.119; L02.419 Hypomagnesemia E83.42 Vitamin B12 deficiency E53.8 Stasis dermatitis of both legs I87.2 Neuropathy G62.9
[2022-09-01] MEDS: DIGOXIN 0.125 MG TAB PO SCH (17:03)
[2022-09-01] MEDS: FUROSEMIDE 40 MG TAB PO SCH (17:03)
[2022-09-01] MEDS: ATORVASTATIN 20 MG TAB PO SCH (20:36)
[2022-09-01] MEDS: GABAPENTIN 300 MG CAP PO SCH (20:36)
[2022-09-02] MEDS: LEVOTHYROXINE SODIUM 100 MCG TABLET PO SCH (05:54)
[2022-09-02 06:40] LABS: BUN Creatinine Ratio 38.2 (10-20); Calcium 8.9 mg/dl (8.5-10.1); Creatinine Clr Calc Pharmacy 59.7 ml/min; Est GFR (Non-African American) 64.7 ml/min; Magnesium 2.2 mg/dl (1.7-2.4); Potassium 3.8 mmol/L (3.5-5.1)
[2022-09-02] MEDS: TRIAMCINOLONE ACET 0.1% CR 80 GM TUBE EXT SCH ×3 (08:27→19:53)
[2022-09-02] MEDS: VALSARTAN/SACUBITRIL 26/24MG TAB PO SCH ×2 (08:27→19:54)
[2022-09-02] MEDS: GABAPENTIN 100 MG CAP PO SCH (08:28)
[2022-09-02] MEDS: CYANOCOBALAMIN (B-12) 500 MCG TABLET PO SCH (08:28)
[2022-09-02] MEDS: POTASSIUM CHLORIDE CRTAB 20 MEQ TABCR PO SCH (08:28)
[2022-09-02] MEDS: SPIRONOLACTONE 25 MG TAB PO SCH (08:28)
[2022-09-02] MEDS: ASPIRIN 81 MG ECTAB PO SCH (08:29)
[2022-09-02] MEDS: APIXABAN 5 MG TABLET PO SCH ×2 (08:29→19:53)
[2022-09-02] MEDS: FUROSEMIDE 40 MG TAB PO SCH (08:29)
[2022-09-02] MEDS: FEXOFENADINE HCL 180 MG TAB PO SCH (08:29)
[2022-09-02] MEDS: MAGNESIUM CHLORIDE W/CALCIUM 64MG DELAYED REL TAB PO SCH (08:29)
[2022-09-02] MEDS: METOPROLOL TARTRATE 100 MG TAB PO SCH ×2 (08:30→19:56)
[2022-09-02] MEDS: ACETAMINOPHEN 325 MG TAB PO PRN (08:34)
[2022-09-02] MEDS ORDERED: MECLIZINE 12.5 MG TAB PO PRN (13:52)
--- NOTE | 2022-09-02 13:57 | Hospitalist Progress Note ---
Date of Service September 02, 2022 Assessment & Plan (1) HFrEF (heart failure with reduced ejection fraction): Plan: Acute on chronic HFrEF - MUCH improved. Weight down considerably since admission. About 27.4kg (60.3 lbs) weight loss. 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 Fluid restrict to 1500cc/day Salt restrict May need heart cath in future to r/o ischemia/CAD contributing to CHF, but Cardiology would like to see how repeat ECHO is in the future once rates controlled Follow BMP am and mag and replete to keep K>4 and Mag>2.0 (2) Atrial fibrillation with rapid ventricular response: Plan: Rates improved with addition of digoxin to her metoprolol last week but PO digoxin was not started then. Had continued episodes of RVR. Thus, added PO digoxin 0.125mg daily on 08/26/22. Metoprolol tartrate titrated up and finally have rate control even with exertion now at 100mg bid Appreciate Cardiology consult Cont Eliquis. follow on tele (3) Elevated LFTs: Plan: due to passive hepatic congestion from decompensated CHF repeat LFTs 08/25 improved, alk phos mildly elevated (4) Stas's thyroiditis: Plan: decompensated. This will contribute to her CHF issues as well. TSH 41. FT4 very low. Patient reports compliance with levothyroxine 75 mcg. Likely gut wall edema inhibiting absorption -increased levothyroxine to 100 mcg daily and repeat TSH in 6 weeks. -this could be contributing to "electric shock feeling" (sounds like neuropathy) in feet (5) Elevated troponin: Plan: Likely Myocardial demand ischemia in setting of decompensated CHF and rapid a.fib. No symptoms of ACS. With that said may need heart cath to r/o CAD -Cardio recommends waiting till outpt after repeat ECHO (6) Cardiomyopathy: Plan: 2nd to chronic, uncontrolled a.fib (suspected). Can't fully r/o CAD/ischemia. See above. Also, could consider adding on Jardiance as outpt (7) Anasarca: Plan: 2nd to severe, decompensated CHF. improving nicely. (8) Generalized weakness: Plan: 2nd to advanced cardiac disease. improving cont PT/OT. (9) Hypertension: Plan: controlled (10) Hypercholesterolemia: Plan: Continue atorvastatin 20 mg. Most recent LFts stable/improved. (11) Rosacea: Plan: Continue metronidazole gel. (12) Cellulitis and abscess of lower extremity: Plan: b/l feet/shins. may be contributing to her LE complaints. Resolved completed 7 day course of keflex and doxy (13) Hypomagnesemia: Plan: now normal, goal>2.0 cont slow mag daily repeat level am (14) Vitamin B12 deficiency: Plan: cont B12 supplement 1000mcg daily could be contributing to discomfort in feet (15) Stasis dermatitis of both legs: Plan: continue triamcinolone cream 0.1% TID in thin amounts to scaly regions (16) Neuropathy: Plan: her "electric" feeling in feet may be neuropathy her decompensated hypothyroidism, low-normal B12 level, and/or other factors are likely contributing start gabapentin 300mg HS -helping but still having pains during day-added on 100mg in AM--> hold at this dose for now and titrate up as tolerated (has side effect of drowsiness) (17) Dizziness: Plan: suspect vertigo nonfocal neuro exam recommend hydration, meclizine prn keep overnight for further observation Plan cont PT, OT Dispo-much improved,plan was to discharge today but with development of vertigo and dehydration--> keep overnight, will need wheelchair van transport tomorrow upon discharge Admission and Anticipated Discharge Date Admission Date: August 21, 2022 Anticipated date of discharge: 09/03/22 Subjective Pt reports feeling very run down today. Also feeling like she is being "pulled to the left" especially when she goes to lie down in bed. No room spinning, not lightheaded, no weakness or numbness, no headache or visual changes. No CP, SOB. She reports feeling dehydrated like she just had a GI bug. Tele with Afib, rates 80s Review of Systems Review of Systems: All systems reviewed & are unremarkable except as noted in HPI & below Physical Exam Physical Exam: gen - NAD heart - irregularly irregular, s1 s2, regular rate, no murmur lungs - rCTAB no wcr; no increased work of breathing abd - body wall edema resolved; soft, NT, BS+, no HSM ext - pulses 2+ b/l; edema of legs from feet to thighs trace and significantly improved skin - venous stasis changes b/l shins and feet; cellulitis b/l feet and shins resolved; stasis dermatitis distal shins and ankles psych - a/o x 3 Neuro: no nystagmus, EOMI, PERRLA, CN 2-12 intact, finger to nose and alternating hands intact bilat, full strength throughout all extremities Results & Data Results & Data ([facility]) Vital Signs (Past 12 Hours) Vital Signs Temp Pulse Pulse Resp BP BP Pulse Ox 09/02/22 11:00 36.8 C 51 L 20 139/70 09/02/22 08:00 36.4 C L 87 18 115/77 96 09/02/22 07:09 76 09/02/22 03:14 36.4 C L 72 16 103/61 96 O2 Del Method 09/02/22 11:00 09/02/22 08:00 09/02/22 07:09 09/02/22 03:14 Room Air Laboratory Results 09/02/22 Range/Units 05:18 Sodium 133 L (136-145) mmol/L Potassium 3.8 (3.5-5.1) mmol/L Chloride 96 L (98-107) mmol/L Carbon Dioxide 32 (21-32) mmol/L Anion Gap 5 (3-11) BUN 34 H (6-23) mg/dl Creatinine 0.89 (0.6-1.2) mg/dl Est Cr Clr Drug Dosing 59.7 ml/min Est GFR ( Amer) 75.0 ml/min Est GFR (Non-Af Amer) 64.7 ml/min BUN/Creatinine Ratio 38.2 H (10-20) Glucose 98 (70-99(Fasting)) mg/dl Calcium 8.9 (8.5-10.1) mg/dl Magnesium 2.2 (1.7-2.4) mg/dl PG Care Time/CCT Total # of Minutes Spent Total Time Spent with Patient: Total time spent is greater than 50% in coordination of care (as documented) at patient's floor/unit and/or counseling patient: Coding Level of Care Code 77319 Subseq Hosp Care Lvl 2 Diagnoses HFrEF (heart failure with reduced ejection fraction) I50.20 Atrial fibrillation with rapid ventricular response I48.91 Elevated LFTs R79.89 Stas's thyroiditis E06.3 Elevated troponin R77.8 Cardiomyopathy I42.9 Anasarca R60.1 Generalized weakness R53.1 Hypertension I10 Hypercholesterolemia E78.00 Rosacea L71.9 Cellulitis and abscess of lower extremity L03.119; L02.419 Hypomagnesemia E83.42 Vitamin B12 deficiency E53.8 Stasis dermatitis of both legs I87.2 Neuropathy G62.9 Dizziness R42
[2022-09-02] MEDS: DIGOXIN 0.125 MG TAB PO SCH (15:04)
[2022-09-02 16:46] LABS: Anion Gap 7.9 (3-11)
[2022-09-02] MEDS: ATORVASTATIN 20 MG TAB PO SCH (19:53)
[2022-09-02] MEDS: GABAPENTIN 300 MG CAP PO SCH (19:54)
[2022-09-03] MEDS: ACETAMINOPHEN 325 MG TAB PO PRN ×2 (04:36→08:43)
[2022-09-03] MEDS: LEVOTHYROXINE SODIUM 100 MCG TABLET PO SCH (05:32)
[2022-09-03 07:09] LABS: Basophils # (auto) 0.08 K/uL (0-0.2); Eosinophils # (auto) 0.29 K/uL (0-0.50); Eosinophils % (auto) 3.7 %; Hematocrit (blood only) 40.6 % (34.1-44.9); Hemoglobin 13.3 g/dl (12.0-16.0); Immature Granulocytes # (auto) 0.03 K/uL (0.00-0.02); Immature Granulocytes % (auto) 0.4 %; Lymphocytes # (auto) 1.47 K/uL (1.2-3.4); Lymphocytes % (auto) 18.7 %; Mean Corpuscular Hemoglobin 30.2 pg (25.0-34.0); Mean Corpuscular Hgb Conc 32.8 g/dL (32.0-36.0); Mean Corpuscular Volume 92.3 fL (80.0-100.0); Mean Platelet Volume 9.8 fL (9.4-12.3); Monocytes % (auto) 8.9 %; Neutrophils % (auto) 67.3 %; Platelet Count 266 K/uL (130-400); RDW Coefficient of Variation 17.8 % (11.5-14.5); RDW Standard Deviation 60.5 fL (36.4-46.3); White Blood Count 7.87 K/ul (4.8-10.8)
[2022-09-03 07:27] LABS: BUN Creatinine Ratio 36.1 (10-20); Calcium 8.8 mg/dl (8.5-10.1); Est GFR (African American) 81.7 ml/min; Est GFR (Non-African American) 70.4 ml/min; Magnesium 2.2 mg/dl (1.7-2.4); Potassium 4.3 mmol/L (3.5-5.1)
[2022-09-03] MEDS: FEXOFENADINE HCL 180 MG TAB PO SCH (08:44)
[2022-09-03] MEDS: MAGNESIUM CHLORIDE W/CALCIUM 64MG DELAYED REL TAB PO SCH (08:44)
[2022-09-03] MEDS: ASPIRIN 81 MG ECTAB PO SCH (08:44)
[2022-09-03] MEDS: GABAPENTIN 100 MG CAP PO SCH (08:44)
[2022-09-03] MEDS: CYANOCOBALAMIN (B-12) 500 MCG TABLET PO SCH (08:44)
[2022-09-03] MEDS: SPIRONOLACTONE 25 MG TAB PO SCH (08:44)
[2022-09-03] MEDS: METOPROLOL TARTRATE 100 MG TAB PO SCH ×2 (08:45→16:16)
[2022-09-03] MEDS: POTASSIUM CHLORIDE CRTAB 20 MEQ TABCR PO SCH (08:45)
[2022-09-03] MEDS: VALSARTAN/SACUBITRIL 26/24MG TAB PO SCH (08:45)
[2022-09-03] MEDS: APIXABAN 5 MG TABLET PO SCH (08:45)
[2022-09-03] MEDS: TRIAMCINOLONE ACET 0.1% CR 80 GM TUBE EXT SCH ×2 (08:45→16:14)
--- NOTE | 2022-09-03 11:25 | Discharge Summary ---
Date of Service September 03, 2022 Admission HPI Per Admitting Provider Debby Mccray is a 71-year-old female with a past medical history significant for A. fib, HFrEF, hypertension, hypercholesteremia, and Stas's thyroiditis who presents today planing of lower extremity swelling. 8 days ago, patient noted an abrupt swelling in her bilateral ankles which is since progressed up her legs bilaterally and into her abdomen. She is prescribed 40 mg Lasix to take daily to help with this, however has not seen improvement. She is also becoming weak, which prompted her to present to the ED today. She is actually calling EMS for her mother who had fallen at home, but when patient sat down on the couch, she was too weak to get up. When EMS arrived, they assessed her and noted that she was in A. fib with an HR in 150s. She received 20 mg of Cardizem in route and was transported to ED for further evaluation. Upon presentation to our ED, BP 100/57, did become as low as 88/64, however now 110s/60s. HR [id number]. Afebrile, SPO2 >95% on RA. Labs significant for bicarb 17, BUN 30, calcium 8.2, T bili 1.8, AST 42, alk phos 187, troponin 27.9. Protein, albumin, globulin low. TSH 41.766, free T4 pending. BNP pending. CXR shows cardiomegaly and pulmonary vascular congestion, pleural effusions with dependent consolidation. Principal Diagnosis Acute on chronic systolic CHF, Rapid atrial fibrillation, Anasarca, Leg cellu litis, Neuropathy Discharge Exam gen - NAD heart - irregularly irregular, s1 s2, regular rate, no murmur lungs - CTAB no wcr; no increased work of breathing abd - body wall edema resolved; soft, NT, BS+, no HSM ext - pulses 2+ b/l; trace edema of legs bilat, significantly improved, now with wrinkles of skin skin - venous stasis changes b/l shins and feet; cellulitis b/l feet and shins resolved; stasis dermatitis distal shins and ankles psych - a/o x 3 Discharge Data Allergies Allergy/AdvReac Type Severity Reaction Status Date / Time aspirin Allergy Unknown CHEST Verified 06/01/22 20:29 TIGHTNESS, RINGING IN EARS Consultations 08/21/22 10:17 ED Decision to Admit Stat 08/21/22 13:00 Consult Cardiology Routine 08/21/22 16:56 [facility] Referral Routine Ordered Studies ECHO Hospital Course (1) HFrEF (heart failure with reduced ejection fraction): Acute on chronic HFrEF - MUCH improved. Weight down considerably since admission. About 27.4kg (60.3 lbs) weight loss. 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 on 09/01--> converted to lasix 40mg po bid on 09/02, feeling wiped out and dehydrated, with some vertigo--> HELD lasix for now and encouraged gentle po hydration -plan to dc to home on lasix 20mg po daily starting 09/04 and close f/u with CHF clinic -continue KCL but decrease to 10 meq po daily given addition of aldactone and lowering of dose of lasix for now-follow BMP as outpt Increased metoprolol to 100mg BID for improved rate control- will change to succ inate formulation -200mg daily on discharge Added digoxin 0.125mg daily for a.fib rate control - dig level 1.1 Cont Entresto twice daily Cont aldactone 25mg daily-new med Daily weights on discharge Fluid restrict to 1500cc/day Salt restrict May need heart cath in future to r/o ischemia/CAD contributing to CHF, but Cardiology would like to see how repeat ECHO is in the future once rates control led Follow up with CHF clinic on discharge (2) Atrial fibrillation with rapid ventricular response: Rates improved with addition of digoxin to her metoprolol last week but PO digoxin was not started then. Had continued episodes of RVR. Thus, added PO digoxin 0.125mg daily on 08/26/22. Metoprolol tartrate titrated up and finally have rate control even with exertion now at 100mg bid-change to Toprol XL 200mg daily on discharge Appreciate Cardiology consult Cont Eliquis. (3) Elevated LFTs: due to passive hepatic congestion from decompensated CHF repeat LFTs 08/25 improved, alk phos mildly elevated (4) Stas's thyroiditis: decompensated. This will contribute to her CHF issues as well. TSH 41. FT4 very low. Patient reports compliance with levothyroxine 75 mcg. Likely gut wall edema inhibiting absorption -increased levothyroxine to 100 mcg daily and repeat TSH in 6 weeks. -this could be contributing to "electric shock feeling" (sounds like neuropathy) in feet (5) Elevated troponin: Likely Myocardial demand ischemia in setting of decompensated CHF and rapid a.fib. No symptoms of ACS. With that said may need heart cath to r/o CAD -Cardio recommends waiting till outpt after repeat ECHO (6) Cardiomyopathy: 2nd to chronic, uncontrolled a.fib (suspected). Can't fully r/o CAD/ischemia. See above. Also, could consider adding on Jardiance as outpt (7) Anasarca: 2nd to severe, decompensated CHF. improving nicely. (8) Generalized weakness: 2nd to advanced cardiac disease. improving cont PT/OT. (9) Hypertension: controlled (10) Hypercholesterolemia: Continue atorvastatin 20 mg. Most recent LFts stable/improved. (11) Rosacea: Continue metronidazole gel prn at home (12) Cellulitis and abscess of lower extremity: b/l feet/shins. may be contributing to her LE complaints. Resolved completed 7 day course of keflex and doxy (13) Hypomagnesemia: now normal, goal>2.0 cont slow mag daily (14) Vitamin B12 deficiency: cont B12 supplement 1000mcg daily could be contributing to discomfort in feet (15) Stasis dermatitis of both legs: continue triamcinolone cream 0.1% TID in thin amounts to scaly regions (16) Neuropathy: her "electric" feeling in feet may be neuropathy her decompensated hypothyroidism, low-normal B12 level, and/or other factors are likely contributing start gabapentin 300mg HS -helping but still having pains during day-added on 100mg in AM--> hold at this dose for now and titrate up as tolerated (has side effect of drowsiness) -causes instability with walking and feeling she is stumbling-PT recommended rehab but she declines rehab placement and home health PT. Advised walker use to assist and prevent falls (17) Dizziness: suspected vertigo initially but no response to meclizine and now pt feels it's because she cannot feel her feet on the ground due to neuropathy and stumbles- see neuropathy as above nonfocal neuro exam Plan Dispo-much improved,dc to home today Total Time Total Time Spent Total Time Spent (In Minutes): 40 min Discharge Plan Discharge Items Patient Disposition: Home - Self-Care Reason For Visit: AFIB RVR Discharge Diagnosis: Acute on chronic systolic CHF, Rapid atrial fibrillation Condition on Discharge: Good Activity: As commented below Lifting: Gradually increase as tolerated Bathing: No limitations Exercise/Sports: Gradually increase as tolerated Exercise Comment: with a walker Non-emergency contact: Primary Care Provider and Genomics Scientist Call non-emergency contact if: you have any medication questions, your symptoms worsen and your pain is not controlled Follow-up/Referrals: Ping Jha PA-C [Physician Logistics Account Manager] - (Ms. Jha will let you know when to follow up in the CHF clinic) Mj Quinn DO [Physician] - (Please follow up within 1-2 weeks) PCP,NO [Primary Care Provider] - Diet: Heart Healthy and Low Sodium (2gm) Fluids: 1500ml (6 cups) Addtl Attending Provider Instructions: You were admitted with significant overload of fluid and had 60 lbs of fluid removed with diuretics. Please continue on lasix 20mg once daily and the new diuretic aldactone 25mg once daily. You had rapid heart rates with your atrial fibrillation and this was better controlled with adding digoxin and increasing the dose of your metoprolol. You were started on gabapentin for your neuropathy in the feet and this can be adjusted upwards on the dose as needed by your PCP in the future for improved pain control. You were also started on a B12 supplement for your neuropathy. Also, your levothyroxine dose was increased to 100 mcg daily and your thyroid function should be checked with blood work in a few more weeks by your PCP to ensure it is better controlled. Call your Primary Care doctor if any of the following symptoms or problems start or get worse: * Shortness of breath or difficulty breathing * Wake up at night short of breath * Chest pain * Cough * Swelling of your hands, feet, or legs * More fatigued or tired with your normal activity * Palpitations - sudden fast heart beats WEIGHT * Weigh yourself every morning after using the bathroom. * Use the same scale. * Wear the same amount of clothing. * Write your weight down on a chart. * Call your Primary Care doctor if you gain more than 2-3 pounds in 1-2 days. MEDICATIONS * Use this discharge instruction sheet for medication instructions. * Take your medications at the time your doctor ordered. * Do not skip a dose of your medicines. * If you miss a dose of medicine, take it as soon as possible, but DO NOT DOUBLE A DOSE. * Read your medicine information when you get home. * Know all of the side effects of your medicine. If in doubt, ask your pharmacist * Call your Primary Care doctor's office if you have any side effects. * Be sure all of your doctors know what medicine and herbs you take (including cold, flu, and herbal medicine). Take the following with you to your follow-up doctor appointments: * Weight Chart * Medication List * List of questions Do not drink excessive alcohol, beer or wine. Pending Studies at Discharge: No Stand-Alone Forms: My [facility] GutCheck, Smoking Cessation Medications and DC Order Prescriptions: New acetaminophen 325 mg Tablet 650 mg PO Q4H PRN (Reason: pain) Qty: 30 0RF Rx Instructions: OTC spironolactone 25 mg Tablet 25 mg PO QAM Qty: 30 0RF digoxin [Digitek] 125 mcg (0.125 mg) Tablet 0.125 mg PO DAILY@1600 Qty: 30 0RF gabapentin 100 mg Capsule 100 mg PO QAM Qty: 120 0RF Rx Instructions: and take 300mg po qhs Mag 64 64 mg Tablet,Delayed Release (Dr/Ec) 64 mg PO QAM Qty: 30 0RF Rx Instructions: OTC potassium chloride 10 mEq tablet extended release 10 meq PO DAILY Qty: 30 0RF levothyroxine [Synthroid] 100 mcg Tablet 100 mcg PO DAILYBB Qty: 30 0RF cyanocobalamin (vitamin B-12) 1,000 mcg capsule 1,000 mcg PO DAILY Qty: 30 0RF Rx Instructions: OTC metoprolol succinate [Toprol XL] 100 mg tablet extended release 24 hr 100 mg PO DAILY Qty: 30 0RF Continued Entresto 24-26 mg tablet 1 tab PO BID Qty: 60 2RF Eliquis 5 mg tablet 5 mg PO BID Qty: 60 0RF Rx Instructions: Patient needs hospital follow up appointment in cardiology for additional refills atorvastatin 20 mg tablet 20 mg PO QPM Qty: 30 0RF Rx Instructions: Patient needs hospital follow up appointment in cardiology for additional refills metronidazole 0.75 % Gel 1 applic topical BID Qty: 45 0RF Rx Instructions: Apply to rash on face fexofenadine 180 mg tablet 180 mg PO DAILY Qty: 30 0RF aspirin [Adult Low Dose Aspirin] 81 mg tablet,delayed release (DR/EC) 81 mg PO DAILY Qty: 30 0RF Rx Instructions: OTC Changed furosemide 40 mg tablet 20 mg PO DAILY Qty: 30 2RF Rx Instructions: Take 1 tablet by mouth every day until edema resolves, then take only as needed. Discontinued metoprolol succinate 50 mg tablet extended release 24 hr 50 mg PO DAILY Qty: 30 11RF levothyroxine 75 mcg capsule 75 mcg PO DAILY Qty: 30 0RF Rx Instructions: Take on an empty stomach 1 hour prior to eating or taking other meds potassium chloride [Klor-Con M20] 20 mEq tablet,ER particles/crystals 20 meq PO DAILY Qty: 30 2RF Rx Instructions: Take this only on days that furosemide is taken. Discharge Orders: Discharge Order (Routine); Ordered 09/03/22 Ordered By: Anupama Arevalo/Other Patient Handouts: Heart Failure Make Changes Diet Admission Data Admit Date/Time: 08/21/22 10:51 Attending Provider: Anupama Franco Admit Provider: Alexandria Nur Primary Care Provider: PCP,NO Other Providers: Anupama Franco ; Anthony Yanez ; Ping Jha Coding Level of Care Code D/C DAY MANAGEMENT >30 MINS Diagnoses HFrEF (heart failure with reduced ejection fraction) I50.20 Atrial fibrillation with rapid ventricular response I48.91 Elevated LFTs R79.89 Stas's thyroiditis E06.3 Elevated troponin R77.8 Cardiomyopathy I42.9 Anasarca R60.1 Generalized weakness R53.1 Hypertension I10 Hypercholesterolemia E78.00 Rosacea L71.9 Cellulitis and abscess of lower extremity L03.119; L02.419 Hypomagnesemia E83.42 Vitamin B12 deficiency E53.8 Stasis dermatitis of both legs I87.2 Neuropathy G62.9 Dizziness R42
--- NOTE | 2022-09-03 11:29 | Heart Failure Consultation ---
Date of Consultation September 03, 2022 Assessment & Plan (1) Acute on chronic HFrEF (heart failure with reduced ejection fraction): (2) Cardiomyopathy: (3) Atrial fibrillation with rapid ventricular response: Plan Met with patient briefly today and discussed the HF program. She is agreeable to participation. Outpatient follow up scheduled for 09/10 at 1030 am. Patient will call for a taxi for transportation. Will provide patient with a scale on discharge and recommended daily standing weights at home. Notify HF program of 2+ lb weight gain overnight or 5+ lb in 1 week. Suspect cardiomyopathy is tachycardia induced but would consider outpatient ischemic workup. Patient is on appropriate GDMT and will require outpatient titration over the next 1-2 months. Switch Metoprolol to succinate 200 mg daily on discharge. Will consider limited echo in a few weeks to see if EF improving with rate control. Digoxin initiated during hospitalization. Will need dig level as outpatient. History of Present Illness Attending Physician: Anupama Franco MD Allergies Allergy/AdvReac Type Severity Reaction Status Date / Time aspirin Allergy Unknown CHEST Verified 06/01/22 20:29 TIGHTNESS, RINGING IN EARS Home Medications Medication Instructions Recorded Confirmed Type aspirin 81 mg tablet,delayed 81 mg PO DAILY #30 tabs 06/06/22 08/21/22 Rx release (Adult Low Dose Aspirin) fexofenadine 180 mg tablet 180 mg PO DAILY #30 tabs 06/06/22 08/21/22 Rx metronidazole 0.75 % topical gel 1 applic topical BID #45 grams 06/06/22 08/21/22 Rx sacubitril 24 mg-valsartan 26 mg 1 tab PO BID #60 tabs 06/25/22 08/21/22 Rx tablet (Entresto) apixaban 5 mg tablet (Eliquis) 5 mg PO BID #60 tabs 07/13/22 08/21/22 Rx atorvastatin 20 mg tablet 20 mg PO QPM #30 tabs 07/13/22 08/21/22 Rx acetaminophen 325 mg tablet 650 mg PO Q4H PRN pain #30 tabs 09/03/22 Rx cyanocobalamin (vitamin B-12) 1,000 mcg PO DAILY #30 caps 09/03/22 Rx 1,000 mcg capsule digoxin 125 mcg (0.125 mg) tablet 0.125 mg PO DAILY@1600 #30 tabs 09/03/22 Rx (Digitek) furosemide 40 mg tablet 20 mg PO DAILY #30 tabs 09/03/22 08/21/22 Rx gabapentin 100 mg capsule 100 mg PO QAM #120 caps 09/03/22 Rx levothyroxine 100 mcg tablet 100 mcg PO DAILYBB #30 tabs 09/03/22 Rx (Synthroid) magnesium chloride 64 mg 64 mg PO QAM #30 tabs 09/03/22 Rx (magnesium chloride) tablet,delayed release (Mag 64) metoprolol succinate 100 mg 100 mg PO DAILY #30 tabs 09/03/22 Rx tablet,extended release 24 hr (Toprol XL) potassium chloride 10 mEq 10 meq PO DAILY #30 tabs 09/03/22 Rx tablet,extended release spironolactone 25 mg tablet 25 mg PO QAM #30 tabs 09/03/22 Rx Patient History Medical History Atrial fibrillation (03/10/12) Benign essential hypertension (03/10/12) Cardiomyopathy Stas's thyroiditis HFrEF (heart failure with reduced ejection fraction) Hypercholesterolemia Hypertension Hypothyroidism (acquired) Mitral and aortic regurgitation Rosacea Family History (Updated 08/21/22 @ 21:05 by Anupama Franco MD) Other Family history non-contributory Social History Smoking Status: Never smoker Hx Alcohol Use: No Hx Substance Use: No Preferred Language: Lithuanian Communication Ability: Effective [employer] Required: No Beliefs That Will Affect Care: Zoroastrian marital status: Single Current Living Situation: Parent Other Information That Helps Us Care for You: No Feels Safe at Home: Yes Assistive Devices: Walker Results & Data ([facility]) Vital Signs (Past 12 Hours) Vital Signs Temp Pulse Pulse Pulse Resp BP BP 09/03/22 09:40 67 09/03/22 07:40 97.7 F 90 20 107/60 09/03/22 04:05 98.2 F 87 18 127/72 Pulse Ox O2 Del Method 09/03/22 09:40 09/03/22 07:40 94 Room Air 09/03/22 04:05 95 Room Air Heart Failure Data/Metrics Heart Failure Type: HFrEf (EF < 40%) Ejection Fraction: 15-20% NYHA classification: III: Sx w/ ltd. activity Risk Stratification: B Evidenced Based Beta Bobby Therapy Beta Bobby Therapy: Yes Beta Bobby Name: Metoprolol Succinate Beta Bobby Target Therapy: Not at Target Therapy ESME/ARB/ARNI Therapy ESME/ARB/ARNI Therapy: Yes ESME/ARB/ARNI Name: Entresto ESME/ARB/ARNI Target Therapy: Not at Target Therapy Aldosterone Antagonist Therapy Aldosterone Antagonist Therapy: Yes Aldosterone Antagonist Name: Spironolactone Coding Level of Care Code None Diagnoses Acute on chronic HFrEF (heart failure with reduced ejection fraction) I50.23 Cardiomyopathy I42.9 Atrial fibrillation with rapid ventricular response I48.91
[2022-09-03] MEDS: DIGOXIN 0.125 MG TAB PO SCH (16:15)
== END 2022-09-03 16:58 | disposition home or self-care (01) | DRG 291 ==
LOC: ED 06:21 → SUATTDRO 10:51 → 2S 10:51
DX: E53.8 Deficiency of other specified B group vitamins; L03.116 Cellulitis of left lower limb; E06.3 Autoimmune thyroiditis; Z79.82 Long term (current) use of aspirin; G62.9 Polyneuropathy, unspecified; I48.91 Unspecified atrial fibrillation; Z79.01 Long term (current) use of anticoagulants; I24.8 Other forms of acute ischemic heart disease; L30.4 Erythema intertrigo; L03.115 Cellulitis of right lower limb; I08.0 Rheumatic disorders of both mitral and aortic valves; Z79.890 Hormone replacement therapy; I50.23 Acute on chronic systolic (congestive) heart failure; E78.00 Pure hypercholesterolemia, unspecified; E87.21 Acute metabolic acidosis; E83.42 Hypomagnesemia; I42.8 Other cardiomyopathies; I87.2 Venous insufficiency (chronic) (peripheral); I11.0 Hypertensive heart disease with heart failure